=== PATIENT | female | born 1935 | race Caucasian/White ===

== ENCOUNTER → 2017-04-17 | Outpatient (CLI) | payer MEDICARE ==
--- NOTE | 2017-04-17 13:09 | CT ---
EXAMINATION TYPE: CT chest wo con DATE OF EXAM: 04/17/2017 COMPARISON: CT chest September 19, 2016 HISTORY: Pulmonary nodule and pneumonia. CT DLP: 199.80 mGycm. Automated Exposure Control for Dose Reduction was Utilized. TECHNIQUE: CT scan of the thorax is performed without IV contrast. FINDINGS: LUNGS: Advanced emphysematous changes are redemonstrated bilaterally. There are large thick-walled bu lla posterior right lung apex with adjacent scarring redemonstrated. There are scattered additional b laura and blebs is pronounced in the upper lungs. No suspicious air-fluid levels are seen. There is bi basilar peripheral fibrosis or honeycombing redemonstrated. No concerning new parenchymal nodule or m ass is identified. There is right-sided volume loss with mediastinal shift is redemonstrated. No pleu ral effusion or pneumothorax is noted. MEDIASTINUM: Lack of IV contrast is noted to limit evaluation for mediastinal and especially hilar ad enopathy. There are no definitive greater than 1 cm hilar or mediastinal lymph nodes. No cardiomega ly or pericardial effusion is seen. There is dense three-vessel coronary artery calcification redemon strated. There is moderate to severe calcified plaque in the visualized aorta. OTHER: There is multilevel moderate spurring in the spine. Small hiatal hernia is now present. IMPRESSION: Advanced emphysematous change redemonstrated. No acute pulmonary process is seen currentl y. No concerning mass or adenopathy is noted.
== END | disposition home or self-care (01) ==
LOC: RADCTMAIN 12:40
PROVIDERS: ATTEND Internal Medicine Sleep Medicine
DX: J43.9 Emphysema, unspecified (principal)
CPT/HCPCS: 71250

== ENCOUNTER → 2017-09-13 | Outpatient (CLI) | payer MEDICARE ==
--- NOTE | 2017-09-13 10:41 | US ---
EXAMINATION TYPE: US carotid duplex BILAT DATE OF EXAM: 09/13/2017 COMPARISON: US CLINICAL HISTORY: R09.89 signs involving the circulatory and respiratory systems. Bruit heard by matty elias physician per patient history. EXAM MEASUREMENTS: RIGHT: Peak Systolic Velocity (PSV) cm/sec ----- Right CCA: 76.7 ----- Right ICA: 171.8 ----- Right ECA: 63.4 ICA/CCA ratio: 2.2 RIGHT: End Diastole cm/sec ----- Right CCA: 17.2 ----- Right ICA: 47.6 ----- Right ECA: 10.6 LEFT: Peak Systolic Velocity (PSV) cm/sec ---- Left CCA: 75.9 ----- Left ICA: 103.1 ----- Left ECA: 128.7 ICA/CCA ratio: 1.4 LEFT: End Diastole cm/sec ----- Left CCA: 24.1 ----- Left ICA: 30.6 ----- Left ECA: 20.4 VERTEBRALS (direction of flow): Right Vertebral: Antegrade Left Vertebral: Antegrade Rhythm: Normal Irregular wall calcifications noted in bilateral CCA and at bilateral carotid bulb with abnormally el evated PSV in Proximal Right ICA and Proximal Left ECA. IMPRESSION: 1. Atherosclerotic changes with elevated velocities within the proximal right internal carotid artery . Ratio also appears to be elevated and findings are suggestive of a 50-69% stenosis. This could be c orrelated with CTA for exact characterization.
== END | disposition home or self-care (01) ==
LOC: RADUSWWP 08:57
PROVIDERS: ATTEND Family Medicine
DX: I65.21 Occlusion and stenosis of right carotid artery (principal); R93.1 Abnormal findings on diagnostic imaging of heart and coronary circulation
CPT/HCPCS: 93880

== ENCOUNTER 2017-10-26 10:39 | Emergency (ER) | payer MEDICARE ==
[2017-10-26] MEDS ORDERED: RX INFO: IV CONTRAST WAS GIVEN 1 EACH MISC MISCELLANE PRN (11:00)
--- NOTE | 2017-10-26 11:07 | ED ---
General Adult HPI - General Chief complaint: Dental/Oral Stated complaint: Jaw pain Time Seen by Provider: 10/26/17 10:40 Source: patient, RN notes reviewed Mode of arrival: wheelchair Limitations: no limitations - History of Present Illness Initial comments: This is an 82-year-old female who presents emergency Department complaining of pain in the right side of her mouth along her maxilla. Patient states she's been seen before in the emergency department and told she has probably trigeminal neuralgia and she has not followed up with a neurologist. Patient states the pain comes it is sharp and last for about a minute but it is so severe brings tears to her eyes. Patient states she takes Motrin on a daily basis but has not helped at all. Patient states the episodes are more frequent and lasting longer lately. Patient states nothing in particular seems to bring them on the one they do come on the area is very sensitive to touch. Patient denies any recent injury or trauma. Patient denies any swelling or redness. Patient has no teeth on the maxilla. Patient denies any recent fever chills. Patient states the symptoms been ongoing and worsening over the last 2 months. patient does not have any pain currently - Related Data Home Medications Medication Instructions Recorded Confirmed Alendronate Sodium 70 mg PO Q7D 06/27/16 10/26/17 Famotidine [Pepcid] 20 mg PO BID 06/27/16 10/26/17 Meloxicam 15 mg PO DAILY 06/27/16 10/26/17 Methotrexate Sodium [Methotrexate] 20 mg PO Q7D 06/27/16 10/26/17 Metoprolol Tartrate [Lopressor] 25 mg PO HS 06/27/16 10/26/17 Pravastatin Sodium [Pravachol] 40 mg PO DAILY 06/27/16 10/26/17 Previous Rx's Medication Instructions Recorded Hydrocodone/Acetaminophen [Fulton 0.5 each PO Q4HR #10 tab 10/26/17 5-325] Ibuprofen [Motrin] 400 mg PO Q8HR #20 10/26/17 Ondansetron Odt [Zofran Odt] 4 mg PO Q8HR PRN #10 tab 10/26/17 Allergies Allergy/AdvReac Type Severity Reaction Status Date / Time No Known Allergies Allergy Verified 10/26/17 12:21 Review of Systems ROS Statement: Those systems with pertinent positive or pertinent negative responses have been documented in the HPI. ROS Other: All systems not noted in ROS Statement are negative. Past Medical History Past Medical History: COPD, GERD/Reflux, Hyperlipidemia, Osteoarthritis (OA), Pneumonia, Renal Disease, Rheumatoid Arthritis (RA), Skin Disorder Additional Past Medical History / Comment(s): Chronic hypoxic respiratory failure, interstitial lung disease, oxygen at night and prn during the day at 3L , chronic kidney disease stage II, recent UTI, hemorrhoids, hx psoriasis, osteoporosis, sinus problems, pt states she does not believe she has HTN but it is in past medical records. History of Any Multi-Drug Resistant Organisms: MRSA Date of last positivie culture/infection: 2010 MDRO Source:: lungs Past Surgical History: Tubal Ligation Additional Past Surgical History / Comment(s): EGD/colonoscopy, uterine fibroidectomy during which urethra was removed and reconstructed, bilateral cataract removal. Past Anesthesia/Blood Transfusion Reactions: No Reported Reaction Past Psychological History: Anxiety Smoking Status: Former smoker Past Alcohol Use History: None Reported Past Drug Use History: None Reported - Past Family History Mother Family Medical History: Unable to Obtain Additional Family Medical History / Comment(s): Pt does not recall mother's medical hx. She states she lived into her late 80's maybe even to age 90yrs. Father Family Medical History: Cancer Additional Family Medical History / Comment(s): . General Exam - General Exam Comments Initial Comments: GENERAL: Patient is well-developed and well-nourished. Patient is nontoxic and well- hydrated and is in no acute distress. ENT: Neck is soft and supple. No significant lymphadenopathy is noted. Oropharynx is clear. Moist mucous membranes. Neck has full range of motion without eliciting any pain. No area of tenderness along the maxilla no swelling no masses felt. EYES: The sclera were anicteric and conjunctiva were pink and moist. Extraocular movements were intact and pupils were equal round and reactive to light. Eyelids were unremarkable. PULMONARY: Unlabored respirations. Good breath sounds bilaterally. No audible rales rhonchi or wheezing was noted. CARDIOVASCULAR: There is a regular rate and rhythm without any murmurs gallops or rubs. ABDOMEN: Soft and nontender with normal bowel sounds. No palpable organomegaly was noted. There is no palpable pulsatile mass. SKIN: Skin is clear with no lesions or rashes and otherwise unremarkable. NEUROLOGIC: Patient is alert and oriented x3. Cranial nerves II through XII are grossly intact. Motor and sensory are also intact. Normal speech, volume and content. Symmetrical smile. MUSCULOSKELETAL: Normal extremities with adequate strength and full range of motion. LYMPHATICS: No significant lymphadenopathy is noted PSYCHIATRIC: Normal psychiatric evaluation. Limitations: no limitations Course Vital Signs 10/26/17 10:43 Temperature 97.4 F L Pulse Rate 65 Respiratory 20 Rate Blood Pressure 183/81 O2 Sat by Pulse 99 Oximetry Medical Decision Making - Lab Data Result diagrams: 10/26/17 11:02 10/26/17 11:02 Lab Results 10/26/17 10/26/17 Range/Units 11:02 11:02 WBC 11.5 H (3.8-10.6) k/uL RBC 3.75 L (3.80-5.40) m/uL Hgb 10.5 L (11.4-16.0) gm/dL Hct 34.3 (34.0-46.0) % MCV 91.5 (80.0-100.0) fL MCH 27.9 (25.0-35.0) pg MCHC 30.5 L (31.0-37.0) g/dL RDW 20.9 H (11.5-15.5) % Plt Count 456 H (150-450) k/uL Neutrophils % 68 % Lymphocytes % 15 % Monocytes % 8 % Eosinophils % 5 % Basophils % 1 % Neutrophils # 7.8 H (1.3-7.7) k/uL Lymphocytes # 1.7 (1.0-4.8) k/uL Monocytes # 0.9 (0-1.0) k/uL Eosinophils # 0.6 (0-0.7) k/uL Basophils # 0.1 (0-0.2) k/uL Hypochromasia Moderate Anisocytosis Moderate Macrocytosis Slight ESR 83 H (0-20) mm/hr Sodium 142 (137-145) mmol/L Potassium 4.4 (3.5-5.1) mmol/L Chloride 106 (98-107) mmol/L Carbon Dioxide 25 (22-30) mmol/L Anion Gap 11 mmol/L BUN 20 H (7-17) mg/dL Creatinine 1.30 H (0.52-1.04) mg/dL Est GFR (MDRD) Af Amer 47 (>60 ml/min/1.73 sqM) Est GFR (MDRD) Non-Af 39 (>60 ml/min/1.73 sqM) Glucose 101 H (74-99) mg/dL Calcium 9.5 (8.4-10.2) mg/dL Total Bilirubin 0.3 (0.2-1.3) mg/dL AST 18 (14-36) U/L ALT 28 (9-52) U/L Alkaline Phosphatase 83 (38-126) U/L C-Reactive Protein 88.8 H (<10.0) mg/L Total Protein 6.6 (6.3-8.2) g/dL Albumin 3.6 (3.5-5.0) g/dL Disposition Clinical Impression: Trigeminal neuralgia Disposition: HOME SELF-CARE Condition: Good Instructions: Trigeminal Neuralgia (ED) Prescriptions: Hydrocodone/Acetaminophen [Fulton 5-325] 0.5 each PO Q4HR #10 tab Ibuprofen [Motrin] 400 mg PO Q8HR #20 Ondansetron Odt [Zofran Odt] 4 mg PO Q8HR PRN #10 tab PRN Reason: Nausea Referrals: Agustin Sheffield DO [Primary Care Provider] - 1-2 days Emilie Torres MD [STAFF PHYSICIAN] - 1-2 days Time of Disposition: 13:43
[2017-10-26 11:22] LABS: Anisocytosis Moderate; Basophils # (A) 0.1 k/uL (0-0.2); Basophils % (A) 1 %; Eosinophils # (A) 0.6 k/uL (0-0.7); Eosinophils % (A) 5 %; HCT 34.3 % (34.0-46.0); HGB 10.5 gm/dL (11.4-16.0); Hypochromasia Moderate; Lymphocytes # (A) 1.7 k/uL (1.0-4.8); Lymphocytes % (A) 15 %; MCH 27.9 pg (25.0-35.0); MCHC 30.5 g/dL (31.0-37.0); MCV 91.5 fL (80.0-100.0); Macrocytosis Slight; Mean Platelet Volume 7.2; Monocytes # (A) 0.9 k/uL (0-1.0); Monocytes % (A) 8 %; Neutrophils # (A) 7.8 k/uL (1.3-7.7); Neutrophils % (A) 68 %; Platelet Count 456 k/uL (150-450); RBC 3.75 m/uL (3.80-5.40); RDW 20.9 % (11.5-15.5); WBC 11.5 k/uL (3.8-10.6)
[2017-10-26 11:28] LABS: Albumin 3.6 g/dL (3.5-5.0); C Reactive Protein 88.8 mg/L (<10.0); Calcium 9.5 mg/dL (8.4-10.2); Potassium 4.4 mmol/L (3.5-5.1); Total Bilirubin 0.3 mg/dL (0.2-1.3); Total Protein 6.6 g/dL (6.3-8.2)
[2017-10-26] MEDS ORDERED: HYDROmorphone 1 MG/ML 1 ML SYRINGE IVP STA (11:51)
[2017-10-26] MEDS ORDERED: KETOROLAC 30 MG/ML 1 ML VIAL IVP STA (11:51)
[2017-10-26] MEDS ORDERED: ONDANSETRON 4 MG/2 ML VIAL IVP STA ×2 (11:52→13:54)
[2017-10-26] MEDS ORDERED: SODIUM CHLORIDE 0.9% 500 ML IV ONE ×2 (12:01→13:59)
[2017-10-26 12:19] LABS: Erythrocyte Sedimentation Rate 83 mm/hr (0-20)
--- NOTE | 2017-10-26 13:22 | CT ---
EXAMINATION TYPE: CT facial bones w con DATE OF EXAM: 10/26/2017 COMPARISON: NONE HISTORY: Rt Maxilla/Cheek pain CT DLP: 570.8 mGycm Automated exposure control for dose reduction was used. CONTRAST: CT scan of the facial bones is performed with IV Contrast, patient injected with 50 mL of Visipaque 3 20. TECHNIQUE: CT scan of the sinuses is performed without contrast, axial images are obtained, coronal r eformatted images are also reviewed. FINDINGS: Orbital margins are intact. There is no evidence of orbital mass. The maxilla is intact. Th ere is fairly normal aeration of the paranasal sinuses. Zygomatic arches appear normal. Mandible appe ars intact. There is normal aeration of the visualized mastoid sinuses. There is cerebral cortical at rophy. There is minimal mucosal thickening in the ethmoid air cells. IMPRESSION: Minimal ethmoid sinusitis. Cerebral atrophy. I do not see a cause for right-sided pain.
[2017-10-26 14:04] VITALS: BP 180/79; PULSE 85; RESP 16; TEMP 97
== END 2017-10-26 14:31 | disposition home or self-care (01) ==
LOC: EC 10:39
DX: G50.0 Trigeminal neuralgia (principal); K21.9 Gastro-esophageal reflux disease without esophagitis; E78.5 Hyperlipidemia, unspecified; M19.90 Unspecified osteoarthritis, unspecified site; M06.9 Rheumatoid arthritis, unspecified; F41.9 Anxiety disorder, unspecified; Z86.14 Personal history of Methicillin resistant Staphylococcus aureus infection; Z87.891 Personal history of nicotine dependence; Z79.899 Other long term (current) drug therapy
CPT/HCPCS: 36415; 80053; 85652; 85025; 86140; 70487; 99284; 96374; 96375 ×2; 96376; 96361; Q9967; J2405; J1885; J1170

== ENCOUNTER → 2017-11-15 | Outpatient (CLI) | payer MEDICARE ==
--- NOTE | 2017-11-15 14:10 | XR ---
EXAMINATION TYPE: XR chest 2V DATE OF EXAM: 11/15/2017 COMPARISON: 08/22/2017 and 04/17/2017 HISTORY: 82-year-old female shortness of breath, bronchopneumonia TECHNIQUE: Frontal and lateral views FINDINGS: Heart normal size. Aorta within normal limits. Hyperinflation. Interstitial infiltrates slightly incr eased at the right base. Bohler cavity at the right apex redemonstrated. The previous air-fluid level has cleared. However, there seems to be some adjacent thickening. IMPRESSION: 1. Advanced COPD and fibrosis. 2. Interstitial infiltrates at the right base slightly increased and could represent early pneumonia. 3. Some peribullous/pericavitary opacity at the right apex could represent additional consolidation h ere. Consider a follow-up contrast-enhanced CT to determine stability from 04/17/2017.
== END | disposition home or self-care (01) ==
LOC: RADXRYALE 13:36
PROVIDERS: ATTEND Physician Assistant
DX: J44.9 Chronic obstructive pulmonary disease, unspecified (principal); J84.10 Pulmonary fibrosis, unspecified
CPT/HCPCS: 71046

== ENCOUNTER → 2017-11-26 | Outpatient (CLI) | payer MEDICARE ==
--- NOTE | 2017-11-26 14:05 | CT ---
EXAMINATION TYPE: CT chest wo con DATE OF EXAM: 11/26/2017 COMPARISON: 04/17/2017 HISTORY: Pulmonary fibrosis and COPD. CT DLP: 205.4 mGycm. Automated Exposure Control for Dose Reduction was Utilized. TECHNIQUE: CT scan of the thorax is performed without IV contrast. FINDINGS: LUNGS: There is progressive thickening of the wall of the cavitary lesion within the right upper lobe measuring approximately 6.0 x 5.9 x 7.5 cm. This splays varicose bronchiectasis of the right upper l obe on coronal series 6 image 52. No continuity with bronchi are seen. Internal septa are noted as we ll as a more rounded nodular thickening of the septa on coronal series 6 image 57 measuring 1.4 cm. C onsiderations for atypical infection such as aspergillosis should be given. There is background severe centrilobular emphysematous changes with left lung hyperexpansion and slig ht rightward mediastinal shift as seen on the prior exam. Right basilar honeycombing is seen on coron al series 6 image 48 indicative of peripheral basilar fibrosis, right greater than left. Linear area of right basilar scarring is similar to the prior. MEDIASTINUM: Lack of IV contrast is noted to limit evaluation for mediastinal and especially hilar ad enopathy. There are no definitive greater than 1 cm hilar or mediastinal lymph nodes. Ascending thora cic aorta is within normal limits of size measuring 3.4 cm. Extensive three-vessel coronary calcifica tions are present. Scant amount of pericardial fluid is seen posterior left laterally. No cardiomegal y. There is enlargement of the right and left main pulmonary arteries measuring 2.4 cm bilaterally. OTHER: Small hiatal hernia is present. Extensive atherosclerosis is seen of the abdominal aorta and t horacic aorta as well as its branches. Multilevel moderate degenerative changes of the thoracic spine are noted. IMPRESSION: 1. Progressive wall thickening of a now right upper lobe cavitary lesion with the previous appearance of bullous emphysematous changes. Thick septa and internal area of nodularity are seen. Atypical inf ection such as aspergillosis should be considered. Infection and neoplasm are considered less likely. There are adjacent dilated segmental bronchi and therefore endoscopy could be considered with percut aneous sampling. Note this patient is high risk for biopsy is there is extensive background centrilob ular emphysematous change. 2. Extensive atherosclerosis of the coronary arteries, thoracic aorta and visualized upper abdominal aorta. 3. Small hiatal hernia. 4. Enlargement of the right and left main pulmonary arteries may suggest underlying pulmonary arteria l hypertension.
== END | disposition home or self-care (01) ==
LOC: RADCTMAIN 13:27
PROVIDERS: ATTEND Family Medicine
DX: I28.8 Other diseases of pulmonary vessels (principal); R91.8 Other nonspecific abnormal finding of lung field; I25.10 Atherosclerotic heart disease of native coronary artery without angina pectoris; J44.9 Chronic obstructive pulmonary disease, unspecified
CPT/HCPCS: 71250

== ENCOUNTER 2018-01-11 12:54 | Inpatient (IN) | payer MEDICARE ==
[2018-01-11] MEDS ORDERED: methylPREDNISolone SOD SUCCI 125 MG/2 ML VIAL IV STA (13:22)
[2018-01-11] MEDS ORDERED: IPRATROPIUM-ALBUTEROL 3 ML NEB INHALATION STA (13:22)
[2018-01-11] MEDS ORDERED: SODIUM CHLORIDE 0.9% 1,000 ML IV STA (13:22)
--- NOTE | 2018-01-11 13:27 | ED ---
General Adult HPI - General Chief complaint: Shortness of Breath Stated complaint: Weakness, Cough Time Seen by Provider: 01/11/18 13:09 Source: patient, family, RN notes reviewed Mode of arrival: wheelchair Limitations: no limitations - History of Present Illness Initial comments: Patient is a pleasant 82-year-old female presenting to the emergency department with difficulty in breathing. Patient has known COPD and pulmonary fibrosis. Dyspnea has been worse over the past several days. No significant cough. No fevers. Patient is very dyspneic with any exertion. No chest pain. - Related Data Home Medications Medication Instructions Recorded Confirmed Alendronate Sodium 70 mg PO Q7D 06/27/16 01/11/18 Famotidine [Pepcid] 20 mg PO BID 06/27/16 01/11/18 Meloxicam 15 mg PO DAILY 06/27/16 01/11/18 Methotrexate Sodium [Methotrexate] 20 mg PO FR 06/27/16 01/11/18 Metoprolol Tartrate [Lopressor] 25 mg PO BID 06/27/16 01/11/18 Pravastatin Sodium [Pravachol] 40 mg PO HS 06/27/16 01/11/18 Albuterol Nebulized [Ventolin 2.5 mg INHALATION RT-Q4H PRN 01/11/18 01/11/18 Nebulized] Aspirin [Adult Low Dose Aspirin EC] 81 mg PO HS 01/11/18 01/11/18 Budesonide [Pulmicort] 0.5 mg INHALATION RT-Q8H 01/11/18 01/11/18 Cholecalciferol [Vitamin D3] 1,000 unit PO DAILY 01/11/18 01/11/18 Fluticasone Nasal Grant [Flonase 2 spr EA NOSTRIL DAILY 01/11/18 01/11/18 Nasal Grant] Folic Acid 1 mg PO DAILY 01/11/18 01/11/18 Ipratropium Nebulized [Atrovent 0.5 mg INHALATION RT-Q6H 01/11/18 01/11/18 Nebulized] Multivitamins, Thera [Multivitamin 1 tab PO DAILY 01/11/18 01/11/18 (formulary)] Psyllium Husk [Metamucil] 0.4 gm PO DAILY 01/11/18 01/11/18 carBAMazepine [TEGretol XR] 100 mg PO Q12H 01/11/18 01/11/18 predniSONE See Taper PO DIRECTED 01/11/18 01/11/18 Allergies Allergy/AdvReac Type Severity Reaction Status Date / Time No Known Allergies Allergy Verified 01/11/18 13:43 Review of Systems ROS Statement: Those systems with pertinent positive or pertinent negative responses have been documented in the HPI. ROS Other: All systems not noted in ROS Statement are negative. Constitutional: Denies: fever Eyes: Denies: eye pain ENT: Denies: ear pain Respiratory: Reports: dyspnea Cardiovascular: Denies: chest pain Endocrine: Denies: fatigue Gastrointestinal: Denies: abdominal pain Genitourinary: Denies: dysuria Musculoskeletal: Denies: back pain Skin: Denies: rash Neurological: Denies: weakness Past Medical History Past Medical History: COPD, GERD/Reflux, Hyperlipidemia, Osteoarthritis (OA), Pneumonia, Renal Disease, Rheumatoid Arthritis (RA), Skin Disorder Additional Past Medical History / Comment(s): Chronic hypoxic respiratory failure, interstitial lung disease, oxygen at night and prn during the day at 3L , chronic kidney disease stage II, recent UTI, hemorrhoids, hx psoriasis, osteoporosis, sinus problems, pulmonary fibrosis History of Any Multi-Drug Resistant Organisms: MRSA Date of last positivie culture/infection: 2010 MDRO Source:: lungs Past Surgical History: Tubal Ligation Additional Past Surgical History / Comment(s): EGD/colonoscopy, uterine fibroidectomy during which urethra was removed and reconstructed, bilateral cataract removal. Past Anesthesia/Blood Transfusion Reactions: No Reported Reaction Past Psychological History: Anxiety Smoking Status: Former smoker Past Alcohol Use History: None Reported Past Drug Use History: None Reported - Past Family History Mother Family Medical History: Unable to Obtain Additional Family Medical History / Comment(s): Pt does not recall mother's medical hx. She states she lived into her late 80's maybe even to age 90yrs. Father Family Medical History: Cancer Additional Family Medical History / Comment(s): . General Exam Limitations: no limitations General appearance: alert, in distress Head exam: Present: atraumatic Eye exam: Present: normal appearance, PERRL ENT exam: Present: normal oropharynx Neck exam: Present: normal inspection Respiratory exam: Present: respiratory distress, decreased breath sounds Cardiovascular Exam: Present: regular rate, normal rhythm GI/Abdominal exam: Present: soft. Absent: tenderness Extremities exam: Present: normal inspection Neurological exam: Present: alert Psychiatric exam: Present: anxious Skin exam: Present: normal color Course Vital Signs 01/11/18 01/11/18 01/11/18 13:01 13:52 13:59 Temperature 99.2 F Pulse Rate 93 96 95 Respiratory 28 H 22 18 Rate Blood Pressure 133/62 O2 Sat by Pulse 98 Oximetry - Reevaluation(s) Reevaluation #1: 01/11/18 13:26 Discussion had with patient and family. Patient wants to be no code, no intubation. 01/11/18 14:21 Patient has slight elevation of temperature. No change in chest x-ray however there is some concern for COPD with infection therefore there is some potential for sepsis. Blood culture and lactic acid and antibiotics will be ordered. Medical Decision Making - Medical Decision Making Patient reevaluated and resting somewhat improved with BiPAP. Patient and family updated on results and plan. Dr. Maher has been paged for admission for Dr. Alcala. 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 - Lab Data Result diagrams: 01/11/18 13:15 01/11/18 13:15 Lab Results 01/11/18 01/11/18 Range/Units 13:15 13:15 WBC 14.0 H (3.8-10.6) k/uL RBC 3.77 L (3.80-5.40) m/uL Hgb 10.7 L (11.4-16.0) gm/dL Hct 33.4 L (34.0-46.0) % MCV 88.7 (80.0-100.0) fL MCH 28.3 (25.0-35.0) pg MCHC 31.9 (31.0-37.0) g/dL RDW 20.6 H (11.5-15.5) % Plt Count 611 H (150-450) k/uL Neutrophils % 73 % Lymphocytes % 16 % Monocytes % 6 % Eosinophils % 2 % Basophils % 1 % Neutrophils # 10.3 H (1.3-7.7) k/uL Lymphocytes # 2.3 (1.0-4.8) k/uL Monocytes # 0.8 (0-1.0) k/uL Eosinophils # 0.3 (0-0.7) k/uL Basophils # 0.1 (0-0.2) k/uL Hypochromasia Slight Anisocytosis Moderate Sodium 137 (137-145) mmol/L Potassium 5.4 H (3.5-5.1) mmol/L Chloride 99 (98-107) mmol/L Carbon Dioxide 27 (22-30) mmol/L Anion Gap 11 mmol/L BUN 20 H (7-17) mg/dL Creatinine 1.32 H (0.52-1.04) mg/dL Est GFR (CKD-EPI)AfAm 43 (>60 ml/min/1.73 sqM) Est GFR (CKD-EPI)NonAf 37 (>60 ml/min/1.73 sqM) Glucose 115 H (74-99) mg/dL Calcium 9.9 (8.4-10.2) mg/dL Total Bilirubin 0.4 (0.2-1.3) mg/dL AST 18 (14-36) U/L ALT 19 (9-52) U/L Alkaline Phosphatase 90 (38-126) U/L Total Protein 7.5 (6.3-8.2) g/dL Albumin 3.8 (3.5-5.0) g/dL - Radiology Data Radiology results: image reviewed (Chest x-ray shows chronic changes without acute abnormality.) Critical Care Time Critical Care Time: Yes Total Critical Care Time: 33 Disposition Clinical Impression: Acute respiratory failure, COPD (chronic obstructive pulmonary disease) Disposition: ADMITTED IP TO THIS HOSP Referrals: Agustin Sheffield DO [Primary Care Provider] - 1-2 days Decision Time: 14:22
[2018-01-11 13:40] LABS: Anisocytosis Moderate; Basophils # (A) 0.1 k/uL (0-0.2); Basophils % (A) 1 %; Eosinophils # (A) 0.3 k/uL (0-0.7); Eosinophils % (A) 2 %; HCT 33.4 % (34.0-46.0); HGB 10.7 gm/dL (11.4-16.0); Hypochromasia Slight; Lymphocytes # (A) 2.3 k/uL (1.0-4.8); Lymphocytes % (A) 16 %; MCH 28.3 pg (25.0-35.0); MCHC 31.9 g/dL (31.0-37.0); MCV 88.7 fL (80.0-100.0); Mean Platelet Volume 6.4; Monocytes # (A) 0.8 k/uL (0-1.0); Monocytes % (A) 6 %; Neutrophils # (A) 10.3 k/uL (1.3-7.7); Neutrophils % (A) 73 %; Platelet Count 611 k/uL (150-450); RBC 3.77 m/uL (3.80-5.40); RDW 20.6 % (11.5-15.5)
--- NOTE | 2018-01-11 13:46 | XR ---
EXAMINATION TYPE: XR chest 1V portable DATE OF EXAM: 01/11/2018 HISTORY: dyspnea. REFERENCE: Previous study dated 11/15/2017. FINDINGS: There is chronic volume loss in the right side of the chest. There is scarring in the right upper lobe. There are underlying emphysematous changes. Heart size is upper limits of normal. There is chronic blunting of the right CP angle which may represent a chronic effusion or pleural reaction. I do not see evidence of superimposed pneumonia or edema. IMPRESSION: NO INTERVAL CHANGE IN THE APPEARANCE OF THE CHEST.
[2018-01-11 14:01] LABS: Albumin 3.8 g/dL (3.5-5.0); Calcium 9.9 mg/dL (8.4-10.2); Total Bilirubin 0.4 mg/dL (0.2-1.3); Total Protein 7.5 g/dL (6.3-8.2)
[2018-01-11 14:06] LABS: Potassium 5.4 mmol/L (3.5-5.1)
[2018-01-11] MEDS ORDERED: AZITHROMYCIN 500 MG in SODIUM CHLORIDE 0.9% 250 ML IVPB STA (14:22)
[2018-01-11] MEDS ORDERED: cefTRIAXone IN SWFI 1,000 MG/10 ML SYRINGE IVP STA (14:22)
[2018-01-11] MEDS ORDERED: PNEUMONIA PROTOCOL UTILIZED 1 EACH MISC PO PRN (14:22)
[2018-01-11] MEDS ORDERED: IPRATROPIUM-ALBUTEROL 3 ML NEB INHALATION PRN (14:22)
[2018-01-11] MEDS: SODIUM CHLORIDE 0.9% 1,000 ML IV SCH ×2 (14:35→22:53)
[2018-01-11] MEDS: IPRATROPIUM-ALBUTEROL 3 ML NEB INHALATION SCH ×2 (16:58→19:04)
[2018-01-11] MEDS: methylPREDNISolone SOD SUCCI 125 MG/2 ML VIAL IV SCH ×2 (17:37→22:53)
[2018-01-11] MEDS ORDERED: NON-FORMULARY DRUG (Alendronate Sodium [Alendronate Sodium] 70 MG) PO SCH (22:15)
[2018-01-11] MEDS: carBAMazepine 100 MG TAB.ER.12H PO SCH (23:00)
--- NOTE | 2018-01-11 23:59 | HP ---
HISTORY AND PHYSICAL CHIEF COMPLAINT: Shortness of breath with weakness and cough. HISTORY OF PRESENT ILLNESS: This 82-year-old woman with a past medical history of multiple medical problems, including COPD, GERD, hyperlipidemia, history of DJD, history of pneumonia, history of rheumatoid arthritis, history of chronic hypoxic respiratory disease, interstitial lung disease, history of anxiety being followed by Dr. Deleon in the outpatient setting with complaints of generalized weakness and tiredness. The patient also complaining of shortness of breath and cough also. The patient also has pulmonary fibrosis. Because of increasing difficulty, the patient came to [facility] and was admitted for further evaluation and treatment. The initial WBC was 14, potassium is 5.4, sodium is 132 and the influenza negative. There is no history of any fever, rigors. No history of headache, loss of conscious or seizures. PAST MEDICAL HISTORY: History of COPD, GERD, hyperlipidemia, history of DJD, history of pneumonia, history of rheumatoid arthritis, skin disorders, chronic hypoxic respiratory failure. MEDICATIONS PRIOR TO ADMISSION: Include home medications are: 1. Albuterol 2.5 q.4h p.r.n. 2. Pravachol 40 mg q.h.s. 3. Methotrexate 20 mg Saturday. 4. Ecotrin 81 mg daily. 6. Prednisone taper. 7. Fluticasone 2 sprays daily. 8. Tegretol XR 100 mg p.o. b.i.d. 9. Multivitamin 1 p.o. daily. 10.Lopressor 25 mg p.o. b.i.d. 11.Vitamin D3 1000 daily. 12.Metamucil 0.5 mg p.o. daily. 13.Meloxicam 15 mg p.o. daily. 14.Folic acid 1 mg daily. 15.Atrovent 0.5 every 6 hours. 16.Pepcid 20 mg p.o. daily. 17.Pulmicort 0.5 q.8h. ALLERGIES: None. FAMILY HISTORY: History of cancer in the family. SOCIAL HISTORY: Previous history of smoking. No history of current smoking or alcohol intake. REVIEW OF SYSTEMS: ENT: No diminished hearing, diminished vision. CARDIOVASCULAR: As mentioned earlier. RESPIRATORY: As mentioned earlier. GI: No nausea or vomiting. : No dysuria. NERVOUS: No numbness or weakness. ALLERGY/IMMUNOLOGY: No asthma or hay fever. MUSCULOSKELETAL: As mentioned earlier. HEMATOLOGY/ONCOLOGY: No history of anemia. ENDOCRINE: No history of diabetes, hypothyroidism. CONSTITUTIONAL: As mentioned earlier. DERMATOLOGY: Negative. RHEUMATOLOGY: Negative. PSYCHIATRY: As mentioned earlier. PHYSICAL EXAMINATION: Alert, oriented x3. Pulse 84, blood pressure 147/78, respirations 19, temperature is 96.9, pulse ox 99% on 3L. HEENT: Conjunctivae normal. Oral mucosa moist. NECK: No jugular venous distention. No carotid bruits. No lymph node enlargement. Accessory muscles of respiration acting. CARDIOVASCULAR: S1, S2 muffled. RESPIRATORY: Breath sounds diminished in the bases. Bilateral scattered rhonchi and crackles. Expiratory wheezing and prolongation. CHEST: Emphysematous. ABDOMEN: Soft, nontender. No mass palpable. LEGS: No edema. No swelling. NERVOUS SYSTEM: Higher functions as mentioned earlier. Moves all 4 limbs. No focal motor or sensory deficits. LYMPHATIC: No lymphadenopathy in neck or axillae. SKIN: No ulcer, rash or bleeding. LABS: WBC 14, hemoglobin is 10.7. Other labs are noted. Creatinine is 1.32. The chest x- ray reviewed which shows emphysematous appearance and chronic pleural effusion and pleural reaction. ASSESSMENT: 1. Chronic obstructive pulmonary disease, interstitial fibrosis exacerbation with acute purulent tracheobronchitis. 2. History of gastroesophageal reflux disease. 3. Hyperlipidemia. 4. History of degenerative joint disease. 5. Pneumonia. 6. Rheumatoid arthritis. 7. Skin disorder. 8. Chronic hypoxic respiratory failure. 9. History of pulmonary fibrosis. 10.History of chronic kidney disease stage 2. 11.History of recent urinary tract infection. 12.Osteoporosis. 13.History methicillin-resistant Staphylococcus aureus. 14.History of anxiety. 15.Remote history of nicotine dependence. 16.NO CODE, NO CPR, NO VENT. RECOMMENDATIONS AND DISCUSSION: In this 82-year-old woman who presented with multiple complex medical issues, will monitor the patient closely, continue the current medical management and symptomatic treatment. Otherwise at this time, I would recommend intensive bronchodilators , IV steroids. I would also recommend empiric antibiotics and I would also recommend resume the home medications. Otherwise, IV steroids also will be given and the prognosis guarded because of the multiple complex medical issues. Further recommendations to follow. A copy of this dictation will be forwarded to Dr. Deleon, who is the primary physician. Repeat labs have also been ordered. Once again, the overall prognosis is guarded because of multiple complex medical issues and further recommendations to follow. See orders for further details. DVT prophylaxis, proton pump inhibitors. MMODL / IJN: [id number] / [place]
[2018-01-12] MEDS ORDERED: BUDESONIDE 0.5 MG/2 ML NEBU INHALATION SCH
[2018-01-12 05:59] LABS: Glucose,Whole Blood 129 mg/dL (75-99)
[2018-01-12] MEDS: INSULIN ASPART 100 UNIT/ML 1 ML 10 ML VIAL SQ SCH ×4 (06:31→19:52)
[2018-01-12] MEDS: PANTOPRAZOLE 40 MG TABLET PO SCH (06:31)
[2018-01-12] MEDS: methylPREDNISolone SOD SUCCI 125 MG/2 ML VIAL IV SCH ×3 (06:33→17:12)
--- NOTE | 2018-01-12 06:52 | XR ---
EXAMINATION TYPE: XR chest 2V DATE OF EXAM: 01/12/2018 HISTORY: pneumonia. REFERENCE: Previous study dated 01/11/2018. FINDINGS: The lungs are overinflated. There is chronic volume loss in the right lung. There is scarri ng in the right upper lobe. Left lung is clear. The heart is not enlarged. There is blunting of the r ight CP angle. I could not exclude a small right effusion. IMPRESSION: 1. COPD. 2. CHRONIC CHANGES RIGHT UPPER LOBE. 3. I CANNOT EXCLUDE A SMALL RIGHT EFFUSION.
[2018-01-12 06:59] LABS: Anisocytosis Moderate; Basophils % (A) 0 %; Eosinophils % (A) 0 %; HCT 28.3 % (34.0-46.0); Hypochromasia Slight; Lymphocytes # (A) 1.2 k/uL (1.0-4.8); Lymphocytes % (A) 10 %; MCH 27.5 pg (25.0-35.0); MCHC 31.3 g/dL (31.0-37.0); Mean Platelet Volume 6.8; Monocytes # (A) 0.4 k/uL (0-1.0); Monocytes % (A) 3 %; Neutrophils # (A) 10.9 k/uL (1.3-7.7); Neutrophils % (A) 87 %; Platelet Count 581 k/uL (150-450); RBC 3.21 m/uL (3.80-5.40); RDW 20.1 % (11.5-15.5); WBC 12.6 k/uL (3.8-10.6)
[2018-01-12 07:05] LABS: HGB 8.8 gm/dL (11.4-16.0)
[2018-01-12 07:09] LABS: Calcium 9.4 mg/dL (8.4-10.2); Potassium 5.7 mmol/L (3.5-5.1)
[2018-01-12] MEDS: BUDESONIDE 0.5 MG/2 ML NEBU INHALATION SCH ×2 (07:52→20:45)
[2018-01-12] MEDS: IPRATROPIUM-ALBUTEROL 3 ML NEB INHALATION SCH ×4 (07:52→20:46)
[2018-01-12] MEDS: AZITHROMYCIN 500 MG TAB PO SCH (08:58)
[2018-01-12] MEDS: MELOXICAM 7.5 MG TAB PO SCH (08:59)
[2018-01-12] MEDS: HEPARIN SODIUM,PORCINE 5,000 UNIT/ML 1 ML VIAL SQ SCH ×2 (08:59→19:50)
[2018-01-12] MEDS: FAMOTIDINE 20 MG TAB PO SCH (08:59)
[2018-01-12] MEDS: PSYLLIUM HUSK 100% 6 GM PACKET PO SCH (09:00)
[2018-01-12] MEDS: METOPROLOL TARTRATE 25 MG TAB PO SCH ×2 (09:00→19:51)
[2018-01-12] MEDS: cefTRIAXone IN SWFI 1,000 MG/10 ML SYRINGE IVP SCH (09:03)
[2018-01-12] MEDS: FLUTICASONE 50MCG/SPRAY NASAL 16GM EA NOSTRIL SCH (10:24)
[2018-01-12] MEDS: carBAMazepine 100 MG TAB.ER.12H PO SCH ×2 (11:03→19:51)
[2018-01-12 11:19] LABS: Glucose,Whole Blood 102 mg/dL (75-99)
[2018-01-12] MEDS: CHOLECALCIFEROL 1,000 UNIT TAB PO SCH (11:44)
[2018-01-12] MEDS: MULTIVITAMINS, THERA 1 EACH TAB PO SCH (11:44)
[2018-01-12] MEDS: FOLIC ACID 1 MG TAB PO SCH (11:44)
[2018-01-12 16:48] LABS: Glucose,Whole Blood 127 mg/dL (75-99)
--- NOTE | 2018-01-12 17:48 | PN ---
PROGRESS NOTE DATE OF SERVICE: 01/12/2018 This 82-year-old woman was admitted with shortness of breath also had COPD acute exacerbation with acute bronchitis. Patient closely monitored. Patient complains of tiredness and weakness and chest pain and palpitations. PAST MEDICAL HISTORY: Reviewed. REVIEW OF SYSTEMS: CARDIOVASCULAR: As mentioned. RESPIRATORY: As mentioned. GI: No nausea. : No dysuria. NERVOUS SYSTEM: As mentioned earlier. CURRENT MEDICATIONS: 1. DuoNeb q.i.d. and p.r.n. 2. Xanax 0.5 t.i.d. p.r.n. 3. Aspirin 81 mg p.o. daily. 4. Zithromax 500 mg p.o. daily. 5. Pulmicort 0.5 b.i.d. 6. Tegretol-XR 100 mg p.o. b.i.d. 7. Rocephin 1 g daily. 8. Vitamin D3 3000 daily. 9. Pepcid 20 mg p.o. daily. 10.Flonase nasal spray. 11.Folic acid. 12.Heparin. 13.NovoLog. 14.Mobic. 15.Methotrexate 20 mg p.o. Saturday. 16.Solu-Medrol 60 IV q.6h. 17.Multivitamins. 18.Protonix. 19.Pravachol. PHYSICAL EXAM: Patient is alert, oriented x3. Pulse 70, blood pressure 120/60, respirations 18, temperature 97 degrees, pulse ox 100% on 3 L. HEENT: Conjunctivae normal. NECK: No jugular venous distention. CARDIOVASCULAR: S1, S2. RESPIRATORY: Breath sounds diminished in the bases. A few scattered rhonchi and crackles. Expiratory wheezing also. ABDOMEN: Soft, nontender. No mass palpable. LEGS: No edema, no swelling. NERVOUS SYSTEM: Higher function as mentioned. Moves all four limbs. No focal deficits. LYMPHATICS: No lymphadenopathy in the neck, axillae, groin. SKIN: No ulcer, rashes or bleeding. LAB STUDIES: WBC 12.2, hemoglobin is 8.8, potassium is 5.7. ASSESSMENT: 1. Chronic obstructive pulmonary disease exacerbation with acute purulent tracheobronchitis. 2. History of gastroesophageal reflux disease. 3. Hyperlipidemia. 4. Hypokalemia. 5. History of degenerative joint disease. 6. History of pneumonia. 7. History rheumatoid arthritis. 8. History of skin disorder. 9. History of chronic hypoxic respiratory failure. 10.History of pulmonary fibrosis. 11.History of chronic kidney stage II. 12.History of recent urinary tract infection. 13.Osteoporosis. 14.History of Methicillin-resistant Staphylococcus aureus. 15.History of anxiety. 16.Remote history of nicotine dependence. 17.NO CODE, NO CPR, NO VENT. RECOMMENDATIONS AND DISCUSSION: I recommend to continue the current medications, continue with symptomatic treatment. Influenza negative. Recommend to continue the current medications. Continue with symptomatic treatment. Continue with IV steroids. Dr. Velázquez has been consulted. Continue rest of the medications. DVT prophylaxis. Guarded prognosis. Further recommendations to follow. MMODL / IJN: [id number] /
[2018-01-12 19:34] LABS: Hemoglobin A1C 6.1 % (4.0-6.0)
[2018-01-12] MEDS: SODIUM CHLORIDE 0.9% 1,000 ML IV SCH ×2 (19:35→19:36)
[2018-01-12] MEDS: ASPIRIN 81 MG PO SCH (19:51)
[2018-01-12] MEDS: PRAVASTATIN SODIUM 40 MG TAB PO SCH (19:51)
[2018-01-12 21:15] LABS: Glucose,Whole Blood 142 mg/dL (75-99)
[2018-01-13] MEDS: SODIUM CHLORIDE 0.9% 1,000 ML IV SCH ×2 (04:01→20:13)
[2018-01-13] MEDS: methylPREDNISolone SOD SUCCI 125 MG/2 ML VIAL IV SCH ×3 (04:01→11:56)
[2018-01-13] MEDS: ALPRAZolam 0.25 MG TAB PO PRN (04:17)
[2018-01-13 05:49] LABS: Glucose,Whole Blood 96 mg/dL (75-99)
[2018-01-13] MEDS: INSULIN ASPART 100 UNIT/ML 1 ML 10 ML VIAL SQ SCH ×4 (06:07→21:46)
[2018-01-13 06:39] LABS: Anisocytosis Moderate; Basophils % (A) 0 %; Eosinophils % (A) 0 %; HGB 8.2 gm/dL (11.4-16.0); Hypochromasia Slight; Lymphocytes # (A) 1.5 k/uL (1.0-4.8); Lymphocytes % (A) 8 %; MCH 27.6 pg (25.0-35.0); MCHC 31.7 g/dL (31.0-37.0); MCV 87.2 fL (80.0-100.0); Mean Platelet Volume 6.5; Monocytes # (A) 0.4 k/uL (0-1.0); Monocytes % (A) 2 %; Neutrophils % (A) 89 %; Platelet Count 622 k/uL (150-450); RBC 2.98 m/uL (3.80-5.40); RDW 20.3 % (11.5-15.5); WBC 19.1 k/uL (3.8-10.6)
[2018-01-13 06:51] LABS: Calcium 9.7 mg/dL (8.4-10.2); Potassium 5.4 mmol/L (3.5-5.1)
[2018-01-13 07:49] LABS: Appearance,Urine Clear (Clear); Bilirubin,Urine Negative (Negative); Blood,Urine Trace (Negative); Color,Urine Light Yellow; Glucose,Urine (UA) Negative (Negative); Ketones,Urine Negative (Negative); Leukocyte Esterase,Urine Trace (Negative); Nitrite,Urine Negative (Negative); PH, Urine 6.5 (5.0-8.0); Protein,Urine Negative (Negative); RBC,Urine 2 /hpf (0-5); Specific Gravity,Urine 1.009 (1.001-1.035); Squamous Epithelial Cell,Urine <1 /hpf (0-4); Urobilinogen,Urine <2.0 mg/dL (<2.0); WBC,Urine 7 /hpf (0-5)
[2018-01-13] MEDS: cefTRIAXone IN SWFI 1,000 MG/10 ML SYRINGE IVP SCH (08:20)
[2018-01-13] MEDS: AZITHROMYCIN 500 MG TAB PO SCH (08:21)
[2018-01-13] MEDS: FAMOTIDINE 20 MG TAB PO SCH (08:21)
[2018-01-13] MEDS: PANTOPRAZOLE 40 MG TABLET PO SCH (08:21)
[2018-01-13] MEDS: METOPROLOL TARTRATE 25 MG TAB PO SCH ×2 (08:22→20:12)
[2018-01-13] MEDS: HEPARIN SODIUM,PORCINE 5,000 UNIT/ML 1 ML VIAL SQ SCH ×2 (08:22→20:11)
[2018-01-13] MEDS: MELOXICAM 7.5 MG TAB PO SCH (08:22)
[2018-01-13] MEDS: FLUTICASONE 50MCG/SPRAY NASAL 16GM EA NOSTRIL SCH (08:22)
[2018-01-13] MEDS: PSYLLIUM HUSK 100% 6 GM PACKET PO SCH (08:23)
[2018-01-13] MEDS: carBAMazepine 100 MG TAB.ER.12H PO SCH ×2 (08:23→20:13)
[2018-01-13] MEDS: BUDESONIDE 0.5 MG/2 ML NEBU INHALATION SCH ×2 (09:35→20:05)
[2018-01-13] MEDS: IPRATROPIUM-ALBUTEROL 3 ML NEB INHALATION SCH ×4 (09:35→20:05)
[2018-01-13] MEDS: FOLIC ACID 1 MG TAB PO SCH (11:56)
[2018-01-13] MEDS: MULTIVITAMINS, THERA 1 EACH TAB PO SCH (11:56)
[2018-01-13] MEDS: CHOLECALCIFEROL 1,000 UNIT TAB PO SCH (11:56)
[2018-01-13 12:05] LABS: Glucose,Whole Blood 127 mg/dL (75-99)
[2018-01-13] MEDS ORDERED: methylPREDNISolone SOD SUCCI 40 MG/ML 1 ML VIAL IV SCH (16:00)
--- NOTE | 2018-01-13 16:49 | PN ---
PROGRESS NOTE DATE OF SURGERY: 01/13/2018 This 82-year-old woman who was admitted with COPD, acute exacerbation, with acute purulent tracheobronchitis also has GERD. The patient is being closely monitored at this time. Pulmonary is following the patient closely also. No chest pain. No palpitations. No fever. On exam, alert and oriented x3. Pulse 87, blood pressure 130/60, respiration 20, temperature 98.3, pulse ox 96% on 3 L. HEENT: Conjunctivae normal. NECK: No jugular venous distention. CARDIOVASCULAR SYSTEM: S1, S2 muffled. RESPIRATORY SYSTEM: Breath sounds diminished at the bases. Breathing efforts are slightly increased. Bilateral scattered rhonchi and crackles. ABDOMEN: Soft, nontender. LEGS: No edema. No swelling. NERVOUS SYSTEM: No focal deficit. LABS: WBC 19.1, hemoglobin 8.2, creatinine 1.27. UA noted. ASSESSMENT: 1. Chronic obstructive pulmonary disease, acute exacerbation, with acute purulent tracheobronchitis. 2. History of gastroesophageal reflux disease. 3. Hyperlipidemia. 4. Hypokalemia. 5. History of degenerative joint disease. 6. History of pneumonia. 7. History of rheumatoid arthritis. 8. History of skin disorder. 9. History of chronic hypoxic respiratory failure. 10.History of pulmonary fibrosis. 11.History of chronic kidney disease, stage II. 12.History of recent urinary tract infection. 13.Osteoporosis. RECOMMENDATIONS AND DISCUSSION: I recommend to continue current medication, continue with the monitoring, symptomatic treatment. Otherwise at this time we will monitor the patient closely, continue the bronchodilators, continue steroids, continue with the antibiotics. Pulmonary consultation. Guarded prognosis. Further recommendations to follow. We will cut down the dose of Solu-Medrol to 40 q.8. MMODL / IJN: [id number] /
[2018-01-13 17:23] LABS: Glucose,Whole Blood 123 mg/dL (75-99)
--- NOTE | 2018-01-13 19:21 | P.CNPUL ---
History of Present Illness Consult date: 01/12/18 (Late entry note) Reason for consult: dyspnea, cough, pneumonia, abnormal CXR/CT Chief complaint: Shortness of breath generalized weakness and cough History of present illness: Patient is a pleasant 82-year-old female who was seen and evaluated examined on fourth floor this patient is well-known to me he has a history of right upper lobe consolidation for which multiple bronchoscopy has been done in the past they were nondiagnostic biopsies were not performed due to risk of pneumothorax and patient also has declined recently patient has been found to have significant pulmonary hypertension likely related to end-stage lung disease and severe COPD emphysema is being sent for a further evaluation today and history of [facility] as well as evaluation of right upper lobe density patient was seen last year then she lost to follow-up and was seen recently after 6 months in the office the right upper lobe mass appears to have increased in size detailed discussion for aggressive intervention like biopsies were performed but however patient declined due to risk of pneumothorax, she is now readmitted with progressive worsening of shortness breath and respiratory distress she responded well with BiPAP in the ER currently on supplemental oxygen fevers and looked slightly better Review of Systems All systems: negative Past Medical History Past Medical History: COPD, GERD/Reflux, Hyperlipidemia, Osteoarthritis (OA), Pneumonia, Renal Disease, Rheumatoid Arthritis (RA), Skin Disorder Additional Past Medical History / Comment(s): Chronic hypoxic respiratory failure, interstitial lung disease, oxygen 3L at all times , chronic kidney disease stage II, recent UTI, hemorrhoids, hx psoriasis, osteoporosis, sinus problems, pulmonary fibrosis History of Any Multi-Drug Resistant Organisms: MRSA Date of last positivie culture/infection: 2010 MDRO Source:: lungs Past Surgical History: Tubal Ligation Additional Past Surgical History / Comment(s): EGD/colonoscopy, uterine fibroidectomy during which urethra was removed and reconstructed, bilateral cataract removal. Past Anesthesia/Blood Transfusion Reactions: No Reported Reaction Past Psychological History: Anxiety Additional Psychological History / Comment(s): Pt resides with spouse and other family members. She is independent. She has home O2 and a nebulizer. Pet dog lives in the home. Patient's 2 sons and one grandchild also lives with them. No history of international travel any time in her life. No experience. 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 Has never traveled outside of the [place] region. Smoking Status: Former smoker Past Alcohol Use History: None Reported Additional Past Alcohol Use History / Comment(s): Pt states she started smoking at age 16 yrs (1952) and quit about 1991 Past Drug Use History: None Reported - Past Family History Mother Family Medical History: Unable to Obtain Additional Family Medical History / Comment(s): Pt does not recall mother's medical hx. She states she lived into her late 80's maybe even to age 90yrs. Father Family Medical History: Cancer Additional Family Medical History / Comment(s): . Medications and Allergies Home Medications Medication Instructions Recorded Confirmed Type Alendronate Sodium 70 mg PO Q7D 06/27/16 01/11/18 History Famotidine [Pepcid] 20 mg PO BID 06/27/16 01/11/18 History Meloxicam 15 mg PO DAILY 06/27/16 01/11/18 History Methotrexate Sodium [Methotrexate] 20 mg PO FR 06/27/16 01/11/18 History Metoprolol Tartrate [Lopressor] 25 mg PO BID 06/27/16 01/11/18 History Pravastatin Sodium [Pravachol] 40 mg PO HS 06/27/16 01/11/18 History Albuterol Nebulized [Ventolin 2.5 mg INHALATION RT-Q4H PRN 01/11/18 01/11/18 History Nebulized] Aspirin [Adult Low Dose Aspirin EC] 81 mg PO HS 01/11/18 01/11/18 History Budesonide [Pulmicort] 0.5 mg INHALATION RT-Q8H 01/11/18 01/11/18 History Cholecalciferol [Vitamin D3] 1,000 unit PO DAILY 01/11/18 01/11/18 History Fluticasone Nasal [place] [Flonase 2 spr EA NOSTRIL DAILY 01/11/18 01/11/18 History Nasal [place]] Folic Acid 1 mg PO DAILY 01/11/18 01/11/18 History Ipratropium Nebulized [Atrovent 0.5 mg INHALATION RT-Q6H 01/11/18 01/11/18 History Nebulized] Multivitamins, Thera [Multivitamin 1 tab PO DAILY 01/11/18 01/11/18 History (formulary)] Psyllium Husk [Metamucil] 0.4 gm PO DAILY 01/11/18 01/11/18 History carBAMazepine [TEGretol XR] 100 mg PO Q12H 01/11/18 01/11/18 History predniSONE See Taper PO DIRECTED 01/11/18 01/11/18 History Allergies Allergy/AdvReac Type Severity Reaction Status Date / Time No Known Allergies Allergy Verified 01/11/18 13:43 Physical Exam Vitals: Vital Signs Temp Pulse Pulse Resp BP Pulse Ox 01/13/18 15:50 84 01/13/18 15:36 84 01/13/18 15:12 98.2 F 86 20 128/62 96 01/13/18 12:39 84 01/13/18 12:26 80 01/13/18 11:07 98.3 F 87 20 132/68 96 01/13/18 09:56 84 01/13/18 09:35 84 01/13/18 08:00 98.3 F 87 20 148/74 97 01/13/18 04:00 97.4 F L 89 20 149/88 100 01/13/18 00:00 98 F 67 16 136/75 94 L 01/12/18 21:07 84 01/12/18 20:46 84 01/12/18 20:00 97 F L 77 18 123/66 97 Intake and Output 01/13/18 01/13/18 01/13/18 06:59 14:59 22:59 Intake Total 240 Output Total 800 650 Balance -560 -650 Intake: Oral 240 Output: Urine 800 650 Other: Voiding Method Bedside Commode Bedside Commode Bedside Commode # Voids 3 3 Weight 54.6 kg 54.6 kg General appearance: alert, in distress Head exam: Present: atraumatic Eye exam: Present: normal appearance, PERRL ENT exam: Present: normal oropharynx Neck exam: Present: normal inspection Respiratory exam: Present: respiratory distress, decreased breath sounds Cardiovascular Exam: Present: regular rate, normal rhythm GI/Abdominal exam: Present: soft. Absent: tenderness Extremities exam: Present: normal inspection Neurological exam: Present: alert Psychiatric exam: Present: anxious Skin exam: Present: normal color Results - Laboratory Findings CBC and BMP: 01/13/18 06:13 01/13/18 06:13 Abnormal lab findings: Abnormal Labs 01/11/18 01/11/18 01/12/18 13:15 13:15 05:56 WBC 14.0 H RBC 3.77 L Hgb 10.7 L Hct 33.4 L RDW 20.6 H Plt Count 611 H Neutrophils # 10.3 H Potassium 5.4 H BUN 20 H Creatinine 1.32 H Glucose 115 H POC Glucose (mg/dL) 129 H Hemoglobin A1c Urine Blood Ur Leukocyte Esterase Urine WBC 01/12/18 01/12/18 01/12/18 06:33 06:33 06:33 WBC 12.6 H RBC 3.21 L Hgb 8.8 L D Hct 28.3 L RDW 20.1 H Plt Count 581 H Neutrophils # 10.9 H Potassium 5.7 H BUN 24 H Creatinine 1.09 H Glucose 113 H POC Glucose (mg/dL) Hemoglobin A1c 6.1 H Urine Blood Ur Leukocyte Esterase Urine WBC 01/12/18 01/12/18 01/12/18 11:18 16:33 21:08 WBC RBC Hgb Hct RDW Plt Count Neutrophils # Potassium BUN Creatinine Glucose POC Glucose (mg/dL) 102 H 127 H 142 H Hemoglobin A1c Urine Blood Ur Leukocyte Esterase Urine WBC 01/13/18 01/13/18 01/13/18 06:13 06:13 07:33 WBC 19.1 H RBC 2.98 L Hgb 8.2 L Hct 26.0 L RDW 20.3 H Plt Count 622 H Neutrophils # 17.0 H Potassium 5.4 H BUN 32 H Creatinine 1.27 H Glucose POC Glucose (mg/dL) Hemoglobin A1c Urine Blood Trace H Ur Leukocyte Esterase Trace H Urine WBC 7 H 01/13/18 01/13/18 11:56 17:01 WBC RBC Hgb Hct RDW Plt Count Neutrophils # Potassium BUN Creatinine Glucose POC Glucose (mg/dL) 127 H 123 H Hemoglobin A1c Urine Blood Ur Leukocyte Esterase Urine WBC - Diagnostic Findings Chest x-ray: report reviewed (Right upper lobe pneumonia and dense consolidation with chronic and progressive worsening) Assessment and Plan Assessment: Sepsis associated right upper lobe pneumonia Right upper lobe slowly enlarging mass with a differential diagnosis of neoplastic processes versus associated with rheumatoid lung disease versus pulmonary fibrosis Pulmonary fibrosis Pulmonary hypertension 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 Generalized weakness medical debility cachexia and weight loss GERD, dyslipidemia, degenerative joint disease osteoarthritis, advanced rheumatoid arthritis Plan: Gentle rehydration IV steroids Broad-spectrum antibiotics Computed tomography scan of the chest will do it with diet if renal functions normalized otherwise will do without dye Further recommendations pending plan of care as per clinical response of the patient Time with Patient: Greater than 30
--- NOTE | 2018-01-13 19:25 | P.PN ---
Subjective Progress Note Date: 01/13/18 Principal diagnosis: Right upper lobe pneumonia, leukocytosis, sepsis, right upper lobe slowly enlarging mass, pulmonary hypertension, advanced rheumatoid arthritis 01/13/2018, patient seen eval examined during the rounds clinically slightly better compared to yesterday exam is still short of breath slightly confused, medications and laboratory data reviewed white cell count is slowly going up likely related to steroids renal functions remains elevated cannot do CT with dye or rather do without dye Patient is a pleasant 82-year-old female who was seen and evaluated examined on fourth floor this patient is well-known to me he has a history of right upper lobe consolidation for which multiple bronchoscopy has been done in the past they were nondiagnostic biopsies were not performed due to risk of pneumothorax and patient also has declined recently patient has been found to have significant pulmonary hypertension likely related to end-stage lung disease and severe COPD emphysema is being sent for a further evaluation today and history of [facility] as well as evaluation of right upper lobe density patient was seen last year then she lost to follow-up and was seen recently after 6 months in the office the right upper lobe mass appears to have increased in size detailed discussion for aggressive intervention like biopsies were performed but however patient declined due to risk of pneumothorax, she is now readmitted with progressive worsening of shortness breath and respiratory distress she responded well with BiPAP in the ER currently on supplemental oxygen fevers and looked slightly better Objective - Vital Signs Vital signs: Vital Signs Temp 98.2 F 01/13/18 15:12 Pulse 84 01/13/18 15:50 Resp 20 01/13/18 15:12 BP 128/62 01/13/18 15:12 Pulse Ox 96 01/13/18 15:12 Intake & Output 01/13/18 01/13/18 01/14/18 06:59 18:59 06:59 Intake Total 240 Output Total 1600 650 Balance -1360 -650 Weight 54.6 kg 54.6 kg Intake: Oral 240 Output: Urine 1600 650 Other: Voiding Method Bedside Commode Bedside Commode # Voids 3 3 - Exam General appearance: alert, in distress Head exam: Present: atraumatic Eye exam: Present: normal appearance, PERRL ENT exam: Present: normal oropharynx Neck exam: Present: normal inspection Respiratory exam: Present: respiratory distress, decreased breath sounds Cardiovascular Exam: Present: regular rate, normal rhythm GI/Abdominal exam: Present: soft. Absent: tenderness Extremities exam: Present: normal inspection Neurological exam: Present: alert Psychiatric exam: Present: anxious Skin exam: Present: normal color - Labs CBC & Chem 7: 01/13/18 06:13 01/13/18 06:13 Labs: Abnormal Lab Results - Last 24 Hours (Table) 01/12/18 01/12/18 01/13/18 Range/Units 06:33 21:08 06:13 WBC 19.1 H (3.8-10.6) k/uL RBC 2.98 L (3.80-5.40) m/uL Hgb 8.2 L (11.4-16.0) gm/dL Hct 26.0 L (34.0-46.0) % RDW 20.3 H (11.5-15.5) % Plt Count 622 H (150-450) k/uL Neutrophils # 17.0 H (1.3-7.7) k/uL Potassium (3.5-5.1) mmol/L BUN (7-17) mg/dL Creatinine (0.52-1.04) mg/dL POC Glucose (mg/dL) 142 H (75-99) mg/dL Hemoglobin A1c 6.1 H (4.0-6.0) % Urine Blood (Negative) Ur Leukocyte Esterase (Negative) Urine WBC (0-5) /hpf 01/13/18 01/13/18 01/13/18 Range/Units 06:13 07:33 11:56 WBC (3.8-10.6) k/uL RBC (3.80-5.40) m/uL Hgb (11.4-16.0) gm/dL Hct (34.0-46.0) % RDW (11.5-15.5) % Plt Count (150-450) k/uL Neutrophils # (1.3-7.7) k/uL Potassium 5.4 H (3.5-5.1) mmol/L BUN 32 H (7-17) mg/dL Creatinine 1.27 H (0.52-1.04) mg/dL POC Glucose (mg/dL) 127 H (75-99) mg/dL Hemoglobin A1c (4.0-6.0) % Urine Blood Trace H (Negative) Ur Leukocyte Esterase Trace H (Negative) Urine WBC 7 H (0-5) /hpf 01/13/18 Range/Units 17:01 WBC (3.8-10.6) k/uL RBC (3.80-5.40) m/uL Hgb (11.4-16.0) gm/dL Hct (34.0-46.0) % RDW (11.5-15.5) % Plt Count (150-450) k/uL Neutrophils # (1.3-7.7) k/uL Potassium (3.5-5.1) mmol/L BUN (7-17) mg/dL Creatinine (0.52-1.04) mg/dL POC Glucose (mg/dL) 123 H (75-99) mg/dL Hemoglobin A1c (4.0-6.0) % Urine Blood (Negative) Ur Leukocyte Esterase (Negative) Urine WBC (0-5) /hpf Microbiology - Last 24 Hours (Table) 01/11/18 13:15 Blood Culture - Preliminary Blood No Growth after 48 hours 01/13/18 07:33 Urine Culture - Preliminary Urine,Clean Catch 01/11/18 16:20 Gram Stain - Final Sputum Sputum Culture - Final Assessment and Plan Assessment: Sepsis associated right upper lobe pneumonia Right upper lobe slowly enlarging mass with a differential diagnosis of neoplastic processes versus associated with rheumatoid lung disease versus pulmonary fibrosis Pulmonary fibrosis Pulmonary hypertension 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 Generalized weakness medical debility cachexia and weight loss GERD, dyslipidemia, degenerative joint disease osteoarthritis, advanced rheumatoid arthritis Plan: Gentle rehydration IV steroids Broad-spectrum antibiotics Computed tomography scan of the chest will do it with diet if renal functions normalized otherwise will do without dye Further recommendations pending plan of care as per clinical response of the patient Time with Patient: Greater than 30
[2018-01-13] MEDS: ASPIRIN 81 MG PO SCH (20:11)
[2018-01-13] MEDS: methylPREDNISolone SOD SUCCI 40 MG/ML 1 ML VIAL IV SCH (20:12)
[2018-01-13] MEDS: PRAVASTATIN SODIUM 40 MG TAB PO SCH (20:13)
[2018-01-13 21:07] LABS: Glucose,Whole Blood 193 mg/dL (75-99)
--- NOTE | 2018-01-13 22:27 | CT ---
EXAMINATION TYPE: CT chest wo con DATE OF EXAM: 01/13/2018 COMPARISON: CT November 26, 2017 HISTORY: Right upper lobe mass, Dyspnea CT DLP: 172.2 mGycm. Automated Exposure Control for Dose Reduction was Utilized. TECHNIQUE: CT scan of the thorax is performed without IV contrast. FINDINGS: LUNGS: The size and morphology of the cavitary right upper lobe lesion is unaltered, with the dimensi ons again measuring 6 x 6 x 7.5 cm. Manger of the lungs have the same appearance as the prior study. MEDIASTINUM: There are no definitive greater than 1 cm hilar or mediastinal lymph nodes. Extensive th ree-vessel coronary calcifications are redemonstrated. Scant amount pericardial fluid is noted again. No cardiomegaly. VISUALIZED SUBDIAPHRAGMATIC STRUCTURES: No acute findings. SKELETAL STRUCTURES: Unremarkable. IMPRESSION: STABLE RIGHT UPPER LOBE CAVITARY LESION; NO NEW PROCESS.
[2018-01-14 05:58] LABS: Anisocytosis Moderate; Basophils % (A) 0 %; Eosinophils % (A) 0 %; HCT 28.8 % (34.0-46.0); HGB 8.9 gm/dL (11.4-16.0); Hypochromasia Moderate; Lymphocytes # (A) 1.6 k/uL (1.0-4.8); Lymphocytes % (A) 9 %; MCH 27.4 pg (25.0-35.0); MCHC 30.8 g/dL (31.0-37.0); MCV 88.8 fL (80.0-100.0); Mean Platelet Volume 6.4; Monocytes # (A) 0.5 k/uL (0-1.0); Monocytes % (A) 3 %; Neutrophils # (A) 15.5 k/uL (1.3-7.7); Neutrophils % (A) 88 %; Platelet Count 633 k/uL (150-450); RBC 3.25 m/uL (3.80-5.40); RDW 20.2 % (11.5-15.5); WBC 17.7 k/uL (3.8-10.6)
[2018-01-14 06:08] LABS: Glucose,Whole Blood 85 mg/dL (75-99)
[2018-01-14 06:14] LABS: Albumin 3.1 g/dL (3.5-5.0); Calcium 10.3 mg/dL (8.4-10.2); Potassium 5.6 mmol/L (3.5-5.1); Total Bilirubin 0.2 mg/dL (0.2-1.3); Total Protein 5.9 g/dL (6.3-8.2)
[2018-01-14] MEDS: SODIUM CHLORIDE 0.9% 1,000 ML IV SCH (06:18)
[2018-01-14] MEDS: INSULIN ASPART 100 UNIT/ML 1 ML 10 ML VIAL SQ SCH ×4 (06:19→21:43)
[2018-01-14] MEDS: PANTOPRAZOLE 40 MG TABLET PO SCH (06:21)
[2018-01-14] MEDS: BUDESONIDE 0.5 MG/2 ML NEBU INHALATION SCH ×2 (08:31→19:40)
[2018-01-14] MEDS: IPRATROPIUM-ALBUTEROL 3 ML NEB INHALATION SCH ×4 (08:32→19:40)
[2018-01-14] MEDS: FAMOTIDINE 20 MG TAB PO SCH (08:55)
[2018-01-14] MEDS: AZITHROMYCIN 500 MG TAB PO SCH (08:55)
[2018-01-14] MEDS: HEPARIN SODIUM,PORCINE 5,000 UNIT/ML 1 ML VIAL SQ SCH ×2 (08:56→21:44)
[2018-01-14] MEDS: MELOXICAM 7.5 MG TAB PO SCH (08:57)
[2018-01-14] MEDS: METOPROLOL TARTRATE 25 MG TAB PO SCH ×2 (08:58→21:44)
[2018-01-14] MEDS: methylPREDNISolone SOD SUCCI 40 MG/ML 1 ML VIAL IV SCH ×2 (08:58→21:44)
[2018-01-14] MEDS: FLUTICASONE 50MCG/SPRAY NASAL 16GM EA NOSTRIL SCH (09:02)
[2018-01-14] MEDS: cefTRIAXone IN SWFI 1,000 MG/10 ML SYRINGE IVP SCH (09:02)
[2018-01-14] MEDS: PSYLLIUM HUSK 100% 6 GM PACKET PO SCH (09:11)
[2018-01-14] MEDS: carBAMazepine 100 MG TAB.ER.12H PO SCH ×2 (09:11→21:44)
--- NOTE | 2018-01-14 11:05 | CDI ---
Last Revision, September 2017 Documentation Clarification Form Date: January 14, 2018 From: Sydni Hanks RN Admit Date: 01/11/2018 2:22:00 PM Patient Name: Karen Jordan Visit Number: [id number] ATTENTION: The Clinical Documentation Specialists (CDI) and [facility] Coding Staff appreciate your assistance in clarifying documentation. Please respond to the clarification below the line at the bottom and electronically sign. The CDI & [facility] Coding staff will review the response and follow-up if needed. Please note: Queries are made part of the Legal Health Record. If you have any questions, please contact the author of this message via ITS. Dr. Carson Maher, Pneumonia was documented in your notes on: 01/11 - 01/13 History/Risk Factors: copd, gerd, hyperlipidemia, djd, pneumonia, ra, skin disorders, chronic hypoxic respiratory failure Clinical Indicators: WBC on admission: 124.0 Treatment: Antibiotics: IV Azithromycin, IV Ceftriaxone Pneumonia Protocol activated Breathing Tx: Duoneb In order to capture the severity of condition, please clarify if the condition signifies and you are treating for: Aspiration Pneumonia, Bacterial Pneumonia, specify causal organism (if known) Gram Negative Pneumonia Due to Strep Due to Staph Due to E. Coli Other bacteria (please specify) Viral Pneumonia, specify casual organism (if known) Healthcare Acquired Pneumonia/Pneumonia, unspecified Other, please specify Unable to determine Please continue to document in your progress notes, under line below and/or in the discharge summary in order to capture severity of illness and risk of mortality. Include clinical findings that support your diagnosis. Gram Negative Pneumonia MTDD
[2018-01-14] MEDS: FOLIC ACID 1 MG TAB PO SCH (11:09)
[2018-01-14] MEDS: MULTIVITAMINS, THERA 1 EACH TAB PO SCH (11:09)
[2018-01-14] MEDS: CHOLECALCIFEROL 1,000 UNIT TAB PO SCH (11:09)
[2018-01-14 11:47] LABS: Glucose,Whole Blood 97 mg/dL (75-99)
[2018-01-14 16:41] LABS: Glucose,Whole Blood 177 mg/dL (75-99)
--- NOTE | 2018-01-14 17:20 | PN ---
PROGRESS NOTE DATE OF SERVICE: 01/14/2018 This 82-year-old woman was admitted COPD acute exacerbation also had pneumonia, still has significant shortness of breath. The CT scan showed significant multiple bullous lesions and the possibility of mass lesion versus pneumonia also. A fungal ball is also being suspected. Dr. Velázquez is following the patient closely. PAST MEDICAL HISTORY: Reviewed. REVIEW OF SYSTEMS: CARDIOVASCULAR: No angina. RESPIRATION: As mentioned earlier. GI: As mentioned earlier. : No dysuria. NERVOUS SYSTEM: No numbness, weakness. MEDS: Current medications are reviewed: 1. DuoNeb q.i.d. and p.r.n. 2. Xanax 0.5 t.i.d. 3. Aspirin 81 mg q.h.s. 4. Pulmicort 0.5 b.i.d. 5. Rocephin 1 g daily. 6. Vitamin D3. 7. Pepcid. 8. Flonase. 9. Heparin. 10.Humalog. 11.Methotrexate. 12.Solu-Medrol 40 IV b.i.d. 13.Protonix. 14.Pravachol. 15.Metamucil. PHYSICAL EXAM: Patient is alert, oriented x3. Pulse 85, blood pressure 129/68, respiration 20, temperature 96.8, pulse ox 98% on 3 L. HEENT: Conjunctivae normal. NECK: No jugular venous distention. CARDIOVASCULAR: S1, S2. RESPIRATORY: Breath sounds diminished in the bases. Bilateral scattered rhonchi and expiratory wheezing and crackles. ABDOMEN: Soft, nontender. No mass palpable. LEGS: No edema. NERVOUS SYSTEM: No focal deficit. LABS: WBC 17.3, hemoglobin is 8.9, sodium 139, potassium 5.6. ASSESSMENT: 1. Chronic obstructive pulmonary disease exacerbation with possible acute right upper lobe pneumonia. 2. Multiple bullous lesions and bullous emphysema especially on the right side more than the left. 3. History of gastroesophageal reflux disease. 4. Hyperlipidemia. 5. Hypokalemia. 6. Possible fungal ball. 7. History of degenerative joint disease. 8. History of pneumonia. 9. History rheumatoid arthritis. 10.History of skin disorder. 11.History of chronic hypoxic respiratory failure. 12.History of pulmonary fibrosis. 13.History of chronic kidney disease stage II. 14.History of recent urinary tract infection. 15.Osteoporosis. RECOMMENDATIONS AND DISCUSSION: This 82-year-old woman who presented with multiple complex medical issues, will monitor the patient closely. Continue the current management and treatment. Otherwise at this time I recommend broad-spectrum antibiotics. Infectious Disease evaluation. Pulmonary consultation. Discussed with Dr. Velázquez. The patient carries high risk for a pneumothorax, either acute lung biopsy or even percutaneous lung biopsy at this time. Dr. Velázquez will re-evaluate the patient and consider bronchoscopy outpatient when the patient is more stable. We will follow the patient closely. Otherwise guarded prognosis. Repeat labs have been ordered. DVT prophylaxis and cultures are noted. Normal yobany suspected. Guarded prognosis. Further recommendations to follow. See orders for details. MMODL / IJN: [id number] /
--- NOTE | 2018-01-14 18:25 | P.PN ---
Subjective Progress Note Date: 01/14/18 Principal diagnosis: Right upper lobe pneumonia, leukocytosis, sepsis, right upper lobe slowly enlarging mass, pulmonary hypertension, advanced rheumatoid arthritis 01/14/2018, patient seen eval reexamined during the rounds clinically doing better more awake and alert breathing comfortably no obvious distress is present patient underwent a computed tomography scan of the chest which is reviewed, continue show a right upper lobe cavitary lesion, cavity is thick walled about 6 cm in size which over the period time slowly enlarging however extensive degree of bullous lung disease present doesn't surrounding makes it very complicated to do a lung biopsy either transbronchial and transthoracic in addition now patient has been found to have pulmonary hypertension not only on echocardiogram but also as it appears on the CAT scan makes with a high risk of bleeding complication as well will discuss these issues with the family I left a message to the daughter in the meantime we'll continue treatment with antibiotics and supportive care overall however prognosis poor 01/13/2018, patient seen eval examined during the rounds clinically slightly better compared to yesterday exam is still short of breath slightly confused, medications and laboratory data reviewed white cell count is slowly going up likely related to steroids renal functions remains elevated cannot do CT with dye or rather do without dye Patient is a pleasant 82-year-old female who was seen and evaluated examined on fourth floor this patient is well-known to me he has a history of right upper lobe consolidation for which multiple bronchoscopy has been done in the past they were nondiagnostic biopsies were not performed due to risk of pneumothorax and patient also has declined recently patient has been found to have significant pulmonary hypertension likely related to end-stage lung disease and severe COPD emphysema is being sent for a further evaluation today and history of [facility] [place] as well as evaluation of right upper lobe density patient was seen last year then she lost to follow-up and was seen recently after 6 months in the office the right upper lobe mass appears to have increased in size detailed discussion for aggressive intervention like biopsies were performed but however patient declined due to risk of pneumothorax, she is now readmitted with progressive worsening of shortness breath and respiratory distress she responded well with BiPAP in the ER currently on supplemental oxygen fevers and looked slightly better Objective - Vital Signs Vital signs: Vital Signs Temp 97.8 F 01/14/18 16:00 Pulse 72 01/14/18 16:00 Resp 20 01/14/18 16:00 BP 144/74 01/14/18 16:00 Pulse Ox 99 01/14/18 16:00 Intake & Output 01/13/18 01/14/18 01/14/18 18:59 06:59 18:59 Intake Total 1320 Output Total 650 600 Balance -650 -600 1320 Weight 54.6 kg 54.9 kg Intake: Oral 1320 Output: Urine 650 600 Other: Voiding Method Bedside Commode Bedside Commode Bedside Commode # Voids 3 1 500 - Exam General appearance: alert, in distress Head exam: Present: atraumatic Eye exam: Present: normal appearance, PERRL ENT exam: Present: normal oropharynx Neck exam: Present: normal inspection Respiratory exam: Present: respiratory distress, decreased breath sounds Cardiovascular Exam: Present: regular rate, normal rhythm GI/Abdominal exam: Present: soft. Absent: tenderness Extremities exam: Present: normal inspection Neurological exam: Present: alert Psychiatric exam: Present: anxious Skin exam: Present: normal color - Labs CBC & Chem 7: 01/14/18 05:25 01/14/18 05:25 Labs: Abnormal Lab Results - Last 24 Hours (Table) 01/13/18 01/14/18 01/14/18 Range/Units 21:05 05:25 05:25 WBC 17.7 H (3.8-10.6) k/uL RBC 3.25 L (3.80-5.40) m/uL Hgb 8.9 L (11.4-16.0) gm/dL Hct 28.8 L (34.0-46.0) % MCHC 30.8 L (31.0-37.0) g/dL RDW 20.2 H (11.5-15.5) % Plt Count 633 H (150-450) k/uL Neutrophils # 15.5 H (1.3-7.7) k/uL Potassium 5.6 H (3.5-5.1) mmol/L BUN 34 H (7-17) mg/dL Creatinine 1.20 H (0.52-1.04) mg/dL POC Glucose (mg/dL) 193 H (75-99) mg/dL Calcium 10.3 H (8.4-10.2) mg/dL AST 12 L (14-36) U/L Total Protein 5.9 L (6.3-8.2) g/dL Albumin 3.1 L (3.5-5.0) g/dL 01/14/18 Range/Units 16:39 WBC (3.8-10.6) k/uL RBC (3.80-5.40) m/uL Hgb (11.4-16.0) gm/dL Hct (34.0-46.0) % MCHC (31.0-37.0) g/dL RDW (11.5-15.5) % Plt Count (150-450) k/uL Neutrophils # (1.3-7.7) k/uL Potassium (3.5-5.1) mmol/L BUN (7-17) mg/dL Creatinine (0.52-1.04) mg/dL POC Glucose (mg/dL) 177 H (75-99) mg/dL Calcium (8.4-10.2) mg/dL AST (14-36) U/L Total Protein (6.3-8.2) g/dL Albumin (3.5-5.0) g/dL Microbiology - Last 24 Hours (Table) 01/11/18 13:15 Blood Culture - Preliminary Blood No Growth after 72 hours 01/13/18 07:33 Urine Culture - Final Urine,Clean Catch Assessment and Plan Assessment: Sepsis associated right upper lobe pneumonia Right upper lobe slowly enlarging cavitary mass mass with a differential diagnosis of neoplastic processes versus associated with rheumatoid lung disease versus pulmonary fibrosis, infected bulla Pulmonary fibrosis Severe and extensive bullous lung disease Pulmonary hypertension 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 Generalized weakness medical debility cachexia and weight loss GERD, dyslipidemia, degenerative joint disease osteoarthritis, advanced rheumatoid arthritis Plan: Gentle rehydration IV steroids Broad-spectrum antibiotics Computed tomography scan of the chest reviewed patient is at very high risk of complication associated with either of transbronchial and transthoracic with not only pneumothorax but also bleeding complication, these issues to be discussed further again with the family Further recommendations pending plan of care as per clinical response of the patient Time with Patient: Greater than 30
[2018-01-14 20:48] LABS: Glucose,Whole Blood 114 mg/dL (75-99)
[2018-01-14] MEDS: ASPIRIN 81 MG PO SCH (21:43)
[2018-01-14] MEDS: PRAVASTATIN SODIUM 40 MG TAB PO SCH (21:44)
[2018-01-15] MEDS ORDERED: SODIUM POLYSTYRENE SULFONATE 15 GM/60 ML BOTTLE PO ONE (00:34)
[2018-01-15 06:14] LABS: Glucose,Whole Blood 125 mg/dL (75-99)
[2018-01-15] MEDS: INSULIN ASPART 100 UNIT/ML 1 ML 10 ML VIAL SQ SCH ×4 (06:27→21:02)
[2018-01-15] MEDS: PANTOPRAZOLE 40 MG TABLET PO SCH (06:28)
[2018-01-15 06:50] LABS: Anisocytosis Moderate; Basophils % (A) 0 %; Eosinophils % (A) 0 %; HCT 26.7 % (34.0-46.0); HGB 8.4 gm/dL (11.4-16.0); Hypochromasia Slight; Lymphocytes # (A) 1.4 k/uL (1.0-4.8); Lymphocytes % (A) 10 %; MCH 27.3 pg (25.0-35.0); MCHC 31.4 g/dL (31.0-37.0); Mean Platelet Volume 6.8; Monocytes # (A) 0.6 k/uL (0-1.0); Monocytes % (A) 4 %; Neutrophils # (A) 11.3 k/uL (1.3-7.7); Neutrophils % (A) 85 %; Platelet Count 581 k/uL (150-450); RBC 3.07 m/uL (3.80-5.40); RDW 20.5 % (11.5-15.5); WBC 13.4 k/uL (3.8-10.6)
[2018-01-15 07:10] LABS: Calcium 9.6 mg/dL (8.4-10.2); Potassium 5.7 mmol/L (3.5-5.1)
[2018-01-15] MEDS: SODIUM CHLORIDE 0.9% 1,000 ML IV SCH (07:16)
[2018-01-15] MEDS: PSYLLIUM HUSK 100% 6 GM PACKET PO SCH (07:50)
[2018-01-15] MEDS: FLUTICASONE 50MCG/SPRAY NASAL 16GM EA NOSTRIL SCH (07:52)
[2018-01-15] MEDS: AZITHROMYCIN 500 MG TAB PO SCH (07:52)
[2018-01-15] MEDS: HEPARIN SODIUM,PORCINE 5,000 UNIT/ML 1 ML VIAL SQ SCH ×2 (07:53→21:02)
[2018-01-15] MEDS: FAMOTIDINE 20 MG TAB PO SCH (07:53)
[2018-01-15] MEDS: METOPROLOL TARTRATE 25 MG TAB PO SCH ×2 (07:54→21:02)
[2018-01-15] MEDS: methylPREDNISolone SOD SUCCI 40 MG/ML 1 ML VIAL IV SCH ×2 (07:54→21:02)
[2018-01-15] MEDS: IPRATROPIUM-ALBUTEROL 3 ML NEB INHALATION SCH ×4 (08:57→19:19)
[2018-01-15] MEDS: BUDESONIDE 0.5 MG/2 ML NEBU INHALATION SCH ×2 (08:57→19:19)
--- NOTE | 2018-01-15 09:08 | XR ---
EXAMINATION TYPE: XR chest 1V portable DATE OF EXAM: 01/15/2018 COMPARISON: Chest CT 01/13/2018, chest x-ray 01/12/2018 HISTORY: Abnormal chest x-ray, cavitary right upper lobe lesion TECHNIQUE: Single frontal view of the chest is obtained. FINDINGS: Cavitary lesion in the right upper lobe is again noted with thickened wall. Patient appear s rotated, there are overlying cardiac leads. Persistent pleural-parenchymal changes present at the l jesús bases. Heart size is likely stable. No evident pneumothorax. No evident pleural effusion. Promine nt lung volumes compatible with underlying COPD. Volume loss noted in the right hemithorax. IMPRESSION: Cavitary lesion in the right upper lobe persists. Basilar atelectasis versus scarring. C orrelate to exclude pneumonia.
[2018-01-15] MEDS: cefTRIAXone IN SWFI 1,000 MG/10 ML SYRINGE IVP SCH (10:30)
[2018-01-15] MEDS: MELOXICAM 7.5 MG TAB PO SCH (10:30)
[2018-01-15] MEDS: carBAMazepine 100 MG TAB.ER.12H PO SCH ×2 (10:31→21:02)
[2018-01-15] MEDS ORDERED: SODIUM POLYSTYRENE SULFONATE 15 GM/60 ML BOTTLE PO STA (10:45)
[2018-01-15 11:47] LABS: Glucose,Whole Blood 139 mg/dL (75-99)
[2018-01-15] MEDS: FOLIC ACID 1 MG TAB PO SCH (12:02)
[2018-01-15] MEDS: CHOLECALCIFEROL 1,000 UNIT TAB PO SCH (12:02)
[2018-01-15] MEDS: MULTIVITAMINS, THERA 1 EACH TAB PO SCH (12:25)
--- NOTE | 2018-01-15 14:48 | PN ---
PROGRESS NOTE DATE OF SERVICE: 01/15/2018 This 82-year-old woman was admitted with COPD acute exacerbation as well as right upper lobe pneumonia, also had multiple bullous lesions. Dr. Velázquez is following the patient closely. Conservative line of management is being recommended. No chest pain. No palpitations. Patient complained of generalized weakness, ECF rehab is also a possibility. PHYSICAL EXAM: Alert and oriented x3, pulse 78, blood pressure 130/70, respiration 20, temperature 97.2 pulse of 92, pulse ox 94% on 3 L. HEENT: Conjunctivae normal. NECK: No jugular venous distension. No neck pain. CARDIOVASCULAR: S1, S2, muffled. RESPIRATORY: Breath sounds diminished at the bases, bilateral scattered rhonchi, no crackles. Abdomen is soft, nontender. No mass palpable. LEGS: No edema, no swelling. NERVOUS SYSTEM: No focal deficits. LABS: WBC is 13.5, hemoglobin is 8.4, sodium 138, potassium 5.7. ASSESSMENT: 1. Chronic obstructive pulmonary disease acute exacerbation with possible acute right upper lobe pneumonia. 2. Bullous lesions and bullous emphysema especially on the right side, right more than the left. 3. History of gastroesophageal reflux disease. 4. Hyperlipidemia. 5. Hypokalemia. 6. Possible fungal ball. 7. History of degenerative joint disease. 8. History pneumonia. 9. History of history rheumatoid arthritis. 10.History of skin disorder. 11.History of chronic hypoxic respiratory failure. 12.History of pulmonary fibrosis. 13.History of chronic kidney disease stage II. 14.History of recent urinary tract infection. 15.Osteoporosis. 16.Gait dysfunction. RECOMMENDATION: Recommend to continue with current management and symptomatic treatment. Otherwise, PT, OT evaluation. Closely follow with Dr. Velázquez. Guarded prognosis. Further recommendations to follow. MMODL / IJN: [id number] /
[2018-01-15 16:51] LABS: Glucose,Whole Blood 153 mg/dL (75-99)
--- NOTE | 2018-01-15 19:34 | P.PN ---
Subjective Progress Note Date: 01/15/18 Principal diagnosis: Right upper lobe pneumonia, leukocytosis, sepsis, right upper lobe slowly enlarging mass, pulmonary hypertension, advanced rheumatoid arthritis 01/15/2018, patient seen eval reexamined she sitting upright on the bed breathing comfortably no obvious distress is present she does have intermittent cough which is associated with light yellow thick sputum production computed tomography scan of the chest which was performed reviewed and compared with the prior CAT scan large right upper lobe thick-walled cavity is present which appears to be infected bulla versus neoplasm, patient however appeared to be responding with regular therapy patient is extremely high risk for either CT- guided or transbronchial biopsy of the lung related with not only pneumothorax plus also hemothorax and bleeding complication given that patient has a significant pulmonary hypertension these issues has been discussed with the daughter at length my recommendation this point of time is to treat patient conservatively and monitor observe closely 01/14/2018, patient seen eval reexamined during the rounds clinically doing better more awake and alert breathing comfortably no obvious distress is present patient underwent a computed tomography scan of the chest which is reviewed, continue show a right upper lobe cavitary lesion, cavity is thick walled about 6 cm in size which over the period time slowly enlarging however extensive degree of bullous lung disease present doesn't surrounding makes it very complicated to do a lung biopsy either transbronchial and transthoracic in addition now patient has been found to have pulmonary hypertension not only on echocardiogram but also as it appears on the CAT scan makes with a high risk of bleeding complication as well will discuss these issues with the family I left a message to the daughter in the meantime we'll continue treatment with antibiotics and supportive care overall however prognosis poor 01/13/2018, patient seen eval examined during the rounds clinically slightly better compared to yesterday exam is still short of breath slightly confused, medications and laboratory data reviewed white cell count is slowly going up likely related to steroids renal functions remains elevated cannot do CT with dye or rather do without dye Patient is a pleasant 82-year-old female who was seen and evaluated examined on fourth floor this patient is well-known to me he has a history of right upper lobe consolidation for which multiple bronchoscopy has been done in the past they were nondiagnostic biopsies were not performed due to risk of pneumothorax and patient also has declined recently patient has been found to have significant pulmonary hypertension likely related to end-stage lung disease and severe COPD emphysema is being sent for a further evaluation today and history of [facility] as well as evaluation of right upper lobe density patient was seen last year then she lost to follow-up and was seen recently after 6 months in the office the right upper lobe mass appears to have increased in size detailed discussion for aggressive intervention like biopsies were performed but however patient declined due to risk of pneumothorax, she is now readmitted with progressive worsening of shortness breath and respiratory distress she responded well with BiPAP in the ER currently on supplemental oxygen fevers and looked slightly better Objective - Vital Signs Vital signs: Vital Signs Temp 96.8 F L 01/15/18 15:39 Pulse 75 01/15/18 19:19 Resp 20 01/15/18 15:39 BP 120/61 01/15/18 15:39 Pulse Ox 96 01/15/18 15:39 Intake & Output 01/15/18 01/15/18 01/16/18 06:59 18:59 06:59 Intake Total 1440 Output Total 400 Balance -400 1440 Weight 55.7 kg Intake: Oral 1440 Output: Urine 400 Other: Voiding Method Bedside Commode Bedside Commode # Voids 3 2 # Bowel Movements 1 0 - Exam General appearance: alert, in distress Head exam: Present: atraumatic Eye exam: Present: normal appearance, PERRL ENT exam: Present: normal oropharynx Neck exam: Present: normal inspection Respiratory exam: Present: respiratory distress, decreased breath sounds Cardiovascular Exam: Present: regular rate, normal rhythm GI/Abdominal exam: Present: soft. Absent: tenderness Extremities exam: Present: normal inspection Neurological exam: Present: alert Psychiatric exam: Present: anxious Skin exam: Present: normal color - Labs CBC & Chem 7: 01/15/18 06:09 01/15/18 06:09 Labs: Abnormal Lab Results - Last 24 Hours (Table) 01/14/18 01/15/18 01/15/18 Range/Units 20:44 06:09 06:09 WBC 13.4 H (3.8-10.6) k/uL RBC 3.07 L (3.80-5.40) m/uL Hgb 8.4 L (11.4-16.0) gm/dL Hct 26.7 L (34.0-46.0) % RDW 20.5 H (11.5-15.5) % Plt Count 581 H (150-450) k/uL Neutrophils # 11.3 H (1.3-7.7) k/uL Potassium 5.7 H (3.5-5.1) mmol/L BUN 39 H (7-17) mg/dL Creatinine 1.40 H (0.52-1.04) mg/dL POC Glucose (mg/dL) 114 H (75-99) mg/dL 01/15/18 01/15/18 01/15/18 Range/Units 06:13 11:46 16:40 WBC (3.8-10.6) k/uL RBC (3.80-5.40) m/uL Hgb (11.4-16.0) gm/dL Hct (34.0-46.0) % RDW (11.5-15.5) % Plt Count (150-450) k/uL Neutrophils # (1.3-7.7) k/uL Potassium (3.5-5.1) mmol/L BUN (7-17) mg/dL Creatinine (0.52-1.04) mg/dL POC Glucose (mg/dL) 125 H 139 H 153 H (75-99) mg/dL Microbiology - Last 24 Hours (Table) 01/11/18 13:15 Blood Culture - Preliminary Blood No Growth after 96 hours Assessment and Plan Assessment: Sepsis associated right upper lobe pneumonia him a leukocytosis improving hemoglobin remained stable platelet count is improving as well Right upper lobe slowly enlarging cavitary mass with a differential diagnosis of neoplastic processes versus associated with rheumatoid lung disease versus pulmonary fibrosis, infected bulla Pulmonary fibrosis Severe and extensive bullous lung disease Pulmonary hypertension 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 Generalized weakness medical debility cachexia and weight loss GERD, dyslipidemia, degenerative joint disease osteoarthritis, advanced rheumatoid arthritis Plan: Gentle rehydration IV steroids Broad-spectrum antibiotics Computed tomography scan of the chest reviewed patient is at very high risk of complication associated with either of transbronchial and transthoracic with not only pneumothorax but also bleeding complication, these issues to be discussed further again with the family Further recommendations pending plan of care as per clinical response of the patient Time with Patient: Greater than 30
[2018-01-15 20:57] LABS: Glucose,Whole Blood 141 mg/dL (75-99)
[2018-01-15] MEDS: PRAVASTATIN SODIUM 40 MG TAB PO SCH (21:01)
[2018-01-15] MEDS: ASPIRIN 81 MG PO SCH (21:01)
[2018-01-15] MEDS: ALPRAZolam 0.25 MG TAB PO PRN (21:54)
--- NOTE | 2018-01-15 22:02 | P.CONS ---
History of Present Illness - Reason for Consult Consult date: 01/15/18 - Chief Complaint Shortness of breath - History of Present Illness 82-year-old female presents to [facility] emergency center with several day history of increasing shortness of breath associated with cough and progressive weakness. The patient has a long-standing history of underlying emphysema with right upper lobe cavitary lesion. At the time of her presentation the patient had evidence of respiratory failure and was supported with BiPAP and is now had improvement. Patient relates she's feeling somewhat better is coming to hospital receiving antibiotics and steroids and respiratory treatments. There is contemplation of transition to rehab to improve her strength and to try to have her remain independent. Infectious diseases consultation requested regarding the right upper lobe lesion. The patient was seen in consult every 2 years ago which point in time she had undergone bronchoscopy for the cavitary right upper lobe lesion. Bacterial cultures, mycobacterial cultures and fungal cultures were all negative initially. Also negative for pneumocystis. Fungal culture and it's final reading showed evidence of some penicillium and the patient was evaluated at that time. It is stated in the past penicillium is a laboratory contamination and does not cause pulmonary infections and persons not from [place]. She received no treatment and has been stable except for intermittent exacerbations of her COPD in the last 2 years. She is feeling somewhat better this evening and is on her baseline 3 L of nasal cannula. Review of Systems HEENT:Denies headache or acute visual change. Denies sinus or mouth discomforts. Denies neck stiffness or pain. Denies significant oral cavity pain. Denies difficulty on swallowing. Lungs: Chronic shortness of breath with sputum production but no hemoptysis Cardiovascular: Denies significant chest pain, chest wall pain, Or syncope but has dyspnea on exertion but no orthopnea Gastrointestinal:Denies nausea, vomiting, diarrhea, constipation, hematemesis, melena, hematochezia. No no significant change of bowel habit noticed. Musculoskeletal: denies significant myalgias or arthralgias. No new joint swelling. Denies new back pain. Skin: Denies new rash or lesions. No new ulcers or wounds are related.. Neuro: Denies headache or visual change. Denies any new onset weakness or difficulty with ambulation. Denies falls or seizures. Psychiatric:Denies anxiety or depression. Endocrine: ongoing worsening fatigue with chronic weight loss. Past Medical History Past Medical History: COPD, GERD/Reflux, Hyperlipidemia, Osteoarthritis (OA), Pneumonia, Renal Disease, Rheumatoid Arthritis (RA), Skin Disorder Additional Past Medical History / Comment(s): Chronic hypoxic respiratory failure, interstitial lung disease, oxygen 3L at all times , chronic kidney disease stage II, recent UTI, hemorrhoids, hx psoriasis, osteoporosis, sinus problems, pulmonary fibrosis History of Any Multi-Drug Resistant Organisms: MRSA Year Discovered:: 2010 MDRO Source:: lungs Past Surgical History: Tubal Ligation Additional Past Surgical History / Comment(s): EGD/colonoscopy, uterine fibroidectomy during which urethra was removed and reconstructed, bilateral cataract removal. Past Anesthesia/Blood Transfusion Reactions: No Reported Reaction Past Psychological History: Anxiety Additional Psychological History / Comment(s): Pt resides with spouse and other family members. She is independent. She has home O2 and a nebulizer. Pet dog lives in the home. Patient's 2 sons and one grandchild also lives with them. No history of international travel any time in her life. No experience. 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 Has never traveled outside of the [place] region. Smoking Status: Former smoker Past Alcohol Use History: None Reported Additional Past Alcohol Use History / Comment(s): Pt states she started smoking at age 16 yrs (195) and quit about 1991 Past Drug Use History: None Reported - Past Family History Mother Family Medical History: Unable to Obtain Additional Family Medical History / Comment(s): Pt does not recall mother's medical hx. She states she lived into her late 80's maybe even to age 90yrs. Father Family Medical History: Cancer Additional Family Medical History / Comment(s): . Medications and Allergies Home Medications and Allergies Comment(s): Current Medications Albuterol/Ipratropium (Duoneb 0.5 Mg-3 Mg/3 Ml Soln) 3 ml INHALATION RT-QID [facility] Last Admin: 01/15/18 19:19 Dose: 3 ml Albuterol/Ipratropium (Duoneb 0.5 Mg-3 Mg/3 Ml Soln) 3 ml INHALATION RT-Q4H PRN PRN Reason: shortness of breath Alprazolam (Xanax) 0.25 mg PO TID PRN PRN Reason: Anxiety Last Admin: 01/15/18 21:54 Dose: 0.25 mg Aspirin (Aspirin) 81 mg PO [facility] Last Admin: 01/15/18 21:01 Dose: 81 mg Azithromycin (Zithromax) 500 mg PO DAILY [facility] Last Admin: 01/15/18 07:52 Dose: 500 mg Budesonide (Pulmicort) 0.5 mg INHALATION RT-BID [facility] Last Admin: 01/15/18 19:19 Dose: 0.5 mg Carbamazepine (Tegretol Xr) 100 mg PO Q12H [facility] Last Admin: 01/15/18 21:02 Dose: 100 mg Cholecalciferol (Vitamin D3) 1,000 unit PO DAILY@1200 [facility] Last Admin: 01/15/18 12:02 Dose: 1,000 unit Famotidine (Pepcid) 20 mg PO DAILY [facility] Last Admin: 01/15/18 07:53 Dose: 20 mg Fluticasone Propionate (Flonase Nasal [place]) 2 spray EA NOSTRIL DAILY [facility] Last Admin: 01/15/18 07:52 Dose: 2 spray Folic Acid (Folic Acid) 1 mg PO DAILY@1200 [facility] Last Admin: 01/15/18 12:02 Dose: 1 mg Heparin Sodium (Porcine) (Heparin) 5,000 unit SQ Q12HR [facility] Last Admin: 01/15/18 21:02 Dose: 5,000 unit Insulin Aspart (Novolog) 0 unit SQ [facility] PRN Reason: Protocol Last Admin: 01/15/18 21:02 Dose: 1 unit Meloxicam (Mobic) 15 mg PO DAILY [facility] Last Admin: 01/15/18 10:30 Dose: 15 mg Methotrexate (Methotrexate) 20 mg PO FR [facility] Methylprednisolone Sodium Succinate (Solu-Medrol) 40 mg IV Q12HR [facility] Last Admin: 01/15/18 21:02 Dose: 40 mg Metoprolol Tartrate (Lopressor) 25 mg PO BID [facility] Last Admin: 01/15/18 21:02 Dose: 25 mg Miscellaneous Information (Pneumonia Protocol Utilized) 1 each PO ONCE PRN PRN Reason: Per Protocol Multivitamins (Theragran) 1 each PO DAILY@1200 [facility] Last Admin: 01/15/18 12:25 Dose: 1 each Pantoprazole Sodium (Protonix) 40 mg PO AC-BRKFST [facility] Last Admin: 01/15/18 06:28 Dose: 40 mg Pravastatin Sodium (Pravachol) 40 mg PO [facility] Last Admin: 01/15/18 21:01 Dose: 40 mg Psyllium Hydrophilic Mucilloid (Metamucil) 6 gm PO DAILY [facility] Last Admin: 01/15/18 07:50 Dose: Not Given Home Medications Medication Instructions Recorded Confirmed Type Alendronate Sodium 70 mg PO Q7D 06/27/16 01/11/18 History Famotidine [Pepcid] 20 mg PO BID 06/27/16 01/11/18 History Meloxicam 15 mg PO DAILY 06/27/16 01/11/18 History Methotrexate Sodium [Methotrexate] 20 mg PO FR 06/27/16 01/11/18 History Metoprolol Tartrate [Lopressor] 25 mg PO BID 06/27/16 01/11/18 History Pravastatin Sodium [Pravachol] 40 mg PO HS 06/27/16 01/11/18 History Albuterol Nebulized [Ventolin 2.5 mg INHALATION RT-Q4H PRN 01/11/18 01/11/18 History Nebulized] Aspirin [Adult Low Dose Aspirin EC] 81 mg PO HS 01/11/18 01/11/18 History Budesonide [Pulmicort] 0.5 mg INHALATION RT-Q8H 01/11/18 01/11/18 History Cholecalciferol [Vitamin D3] 1,000 unit PO DAILY 01/11/18 01/11/18 History Fluticasone Nasal [place] [Flonase 2 spr EA NOSTRIL DAILY 01/11/18 01/11/18 History Nasal [place]] Folic Acid 1 mg PO DAILY 01/11/18 01/11/18 History Ipratropium Nebulized [Atrovent 0.5 mg INHALATION RT-Q6H 01/11/18 01/11/18 History Nebulized] Multivitamins, Thera [Multivitamin 1 tab PO DAILY 01/11/18 01/11/18 History (formulary)] Psyllium Husk [Metamucil] 0.4 gm PO DAILY 01/11/18 01/11/18 History carBAMazepine [TEGretol XR] 100 mg PO Q12H 01/11/18 01/11/18 History predniSONE See Taper PO DIRECTED 01/11/18 01/11/18 History Allergies Allergy/AdvReac Type Severity Reaction Status Date / Time No Known Allergies Allergy Verified 01/11/18 13:43 Physical Exam Vitals: Vital Signs Temp Pulse Pulse Resp BP Pulse Ox 01/15/18 20:00 98.3 F 98 20 128/75 96 01/15/18 19:32 77 01/15/18 19:19 75 01/15/18 15:39 96.8 F L 74 20 120/61 96 01/15/18 15:35 76 01/15/18 15:21 74 98 01/15/18 12:17 86 01/15/18 12:09 84 01/15/18 11:27 97.1 F L 78 20 133/72 94 L 01/15/18 09:10 90 01/15/18 08:58 88 01/15/18 08:00 97 F L 80 20 136/81 97 01/15/18 01:57 97.9 F 84 18 150/74 94 L 01/15/18 00:00 97.4 F L 83 17 120/51 98 Intake and Output 01/15/18 01/15/18 01/15/18 06:59 14:59 22:59 Intake Total 1440 Output Total 200 Balance -200 1440 Intake: Oral 1440 Output: Urine 200 Other: Voiding Method Bedside Commode Bedside Commode Bedside Commode # Voids 3 1 2 # Bowel Movements 1 0 Weight 55.7 kg Pleasant 82-year-old woman who is hard of hearing otherwise relates she feels better. She still has shortness of breath, and difficulty with her appetite without emesis HEENT: Anicteric conjunctiva are pink and moist nasal mucosa grossly intact without significant lesions, there is no thrush. Poorly fitting dentures with no oral lesion Neck: The neck is supple without significant lymphadenopathy or thyromegaly. Lungs: Symmetrical air entry. Coarse sounds are scattered the lung chan. Expiratory wheezes are noted. Heart: Regular rate and rhythm with an audible S1-S2, no S3 no S4. 2/6 systolic murmur left sternal border without change Abdomen: Positive bowel sounds soft and nontender without palpable masses or organomegaly. There was no guarding or rebound. Extremities: The upper extremities have excellent pulses they are symmetric, no significant petechiae or telangiectasia. No splinter hemorrhages were noted. The lower extremities are free from significant edema. The peripheral pulses were 2+ and symmetric. Neuro: Awake alert oriented to person place and time. There are no acute new gross focal sensory motor deficits. Results CBC & Chem 7: 01/15/18 06:09 01/15/18 06:09 Labs: Abnormal Lab Results - Last 24 Hours (Table) 01/15/18 01/15/18 01/15/18 Range/Units 06:09 06:09 06:13 WBC 13.4 H (3.8-10.6) k/uL RBC 3.07 L (3.80-5.40) m/uL Hgb 8.4 L (11.4-16.0) gm/dL Hct 26.7 L (34.0-46.0) % RDW 20.5 H (11.5-15.5) % Plt Count 581 H (150-450) k/uL Neutrophils # 11.3 H (1.3-7.7) k/uL Potassium 5.7 H (3.5-5.1) mmol/L BUN 39 H (7-17) mg/dL Creatinine 1.40 H (0.52-1.04) mg/dL POC Glucose (mg/dL) 125 H (75-99) mg/dL 01/15/18 01/15/18 01/15/18 Range/Units 11:46 16:40 20:56 WBC (3.8-10.6) k/uL RBC (3.80-5.40) m/uL Hgb (11.4-16.0) gm/dL Hct (34.0-46.0) % RDW (11.5-15.5) % Plt Count (150-450) k/uL Neutrophils # (1.3-7.7) k/uL Potassium (3.5-5.1) mmol/L BUN (7-17) mg/dL Creatinine (0.52-1.04) mg/dL POC Glucose (mg/dL) 139 H 153 H 141 H (75-99) mg/dL Microbiology - Last 24 Hours (Table) 01/11/18 13:15 Blood Culture - Preliminary Blood No Growth after 96 hours Laboratory Results WBC 13.4 k/uL (3.8-10.6) H 01/15/18 06:09 RBC 3.07 m/uL (3.80-5.40) L 01/15/18 06:09 Hgb 8.4 gm/dL (11.4-16.0) L 01/15/18 06:09 Hct 26.7 % (34.0-46.0) L 01/15/18 06:09 MCV 87.0 fL (80.0-100.0) 01/15/18 06:09 MCH 27.3 pg (25.0-35.0) 01/15/18 06:09 MCHC 31.4 g/dL (31.0-37.0) 01/15/18 06:09 RDW 20.5 % (11.5-15.5) H 01/15/18 06:09 Plt Count 581 k/uL (150-450) H 01/15/18 06:09 Neutrophils % 85 % 01/15/18 06:09 Lymphocytes % 10 % 01/15/18 06:09 Monocytes % 4 % 01/15/18 06:09 Eosinophils % 0 % 01/15/18 06:09 Basophils % 0 % 01/15/18 06:09 Neutrophils # 11.3 k/uL (1.3-7.7) H 01/15/18 06:09 Lymphocytes # 1.4 k/uL (1.0-4.8) 01/15/18 06:09 Monocytes # 0.6 k/uL (0-1.0) 01/15/18 06:09 Eosinophils # 0.0 k/uL (0-0.7) 01/15/18 06:09 Basophils # 0.0 k/uL (0-0.2) 01/15/18 06:09 Hypochromasia Slight 01/15/18 06:09 Anisocytosis Moderate 01/15/18 06:09 Sodium 138 mmol/L (137-145) 01/15/18 06:09 Potassium 5.7 mmol/L (3.5-5.1) H 01/15/18 06:09 Chloride 104 mmol/L (98-107) 01/15/18 06:09 Carbon Dioxide 26 mmol/L (22-30) 01/15/18 06:09 Anion Gap 8 mmol/L 01/15/18 06:09 BUN 39 mg/dL (7-17) H 01/15/18 06:09 Creatinine 1.40 mg/dL (0.52-1.04) H 01/15/18 06:09 Est GFR (CKD-EPI)AfAm 40 (>60 ml/min/1.73 sqM) 01/15/18 06:09 Est GFR (CKD-EPI)NonAf 35 (>60 ml/min/1.73 sqM) 01/15/18 06:09 Glucose 98 mg/dL (74-99) 01/15/18 06:09 POC Glucose (mg/dL) 141 mg/dL (75-99) H 01/15/18 20:56 POC Glu [employer] [facility] [place] 01/15/18 20:[address] Glu mg/dL 128 01/12/18 06:33 Hemoglobin A1c 6.1 % (4.0-6.0) H 01/12/18 06:33 Plasma Lactic Acid Fid[place] 1.8 mmol/L (0.7-2.0) 01/11/18 13:15 Calcium 9.6 mg/dL (8.4-10.2) 01/15/18 06:09 Total Bilirubin 0.2 mg/dL (0.2-1.3) 01/14/18 05:25 AST 12 U/L (14-36) L 01/14/18 05:25 ALT 23 U/L (9-52) 01/14/18 05:25 Alkaline Phosphatase 74 U/L (38-126) 01/14/18 05:25 Total Protein 5.9 g/dL (6.3-8.2) L 01/14/18 05:25 Albumin 3.1 g/dL (3.5-5.0) L 01/14/18 05:25 Urine Color Light Yellow 01/13/18 07:33 Urine Appearance Clear (Clear) 01/13/18 07:33 Urine pH 6.5 (5.0-8.0) 01/13/18 07:33 Ur Specific [place] 1.009 (1.001-1.035) 01/13/18 07:33 Urine Protein Negative (Negative) 01/13/18 07:33 Urine Glucose (UA) Negative (Negative) 01/13/18 07:33 Urine Ketones Negative (Negative) 01/13/18 07:33 Urine Blood Trace (Negative) H 01/13/18 07:33 Urine Nitrite Negative (Negative) 01/13/18 07:33 Urine Bilirubin Negative (Negative) 01/13/18 07:33 Urine Urobilinogen <2.0 mg/dL (<2.0) 01/13/18 07:33 Ur Leukocyte Esterase Trace (Negative) H 01/13/18 07:33 Urine RBC 2 /hpf (0-5) 01/13/18 07:33 Urine WBC 7 /hpf (0-5) H 01/13/18 07:33 Ur Squamous Epith Cells <1 /hpf (0-4) 01/13/18 07:33 Influenza Type A RNA Not Detected (Not Detectd) 01/11/18 14:32 Influenza Type B (PCR) Not Detected (Not Detectd) 01/11/18 14:32 Microbiology 01/11/18 13:15 Blood Blood Culture - Preliminary No Growth after 96 hours 01/13/18 07:33 Urine,Clean Catch Urine Culture - Final 01/11/18 16:20 Sputum Gram Stain - Final 01/11/18 16:20 Sputum Sputum Culture - Final Assessment and Plan (1) COPD (chronic obstructive pulmonary disease) Current Visit: Yes Status: Acute Code(s): J44.9 - CHRONIC OBSTRUCTIVE PULMONARY DISEASE, UNSPECIFIED SNOMED Code(s): 27626778 (2) Bullous emphysema Current Visit: No Status: Acute Code(s): J43.9 - EMPHYSEMA, UNSPECIFIED SNOMED Code(s): 577967529 (3) Cavitary lesion of lung Narrative/Plan: 82-year-old female who presents to Hospital with acute exacerbation of underlying COPD requiring straight treatments, increased oxygen and BiPAP at admission while she was having some respiratory failure. She's not had improvement no longer requiring BiPAP and is now down to her baseline 3 L of nasal cannula oxygen. She is at this time denying fevers chills rigors or sweats. She does feel a bit agitated which is common when she is receiving steroids for her lung disease. She is not having much sputum production and has no hemoptysis. A computed tomography scan has been performed compared to prior CT scans show evidence of the stable right upper lobe cavitary lesion. There is no notation of any abscess or fluid level within the cavity and no evidence of any extensive pneumonia is seen. Significant emphysema is again noted as is the extensive coronary calcifications. At this time the patient has evidence of an exacerbation of her COPD that is responding well to current treatments. Does not appear to have an extensive pneumonia and fortunately does not have evidence of any abscess within the bulla. We will complete her course of azithromycin for the recent exacerbation of her COPD, we'll not need to venous antibiotic therapy. As noted has had prior bronchoscopies in the past without evidence of mycobacterial infection or fungal infection. Prior cytology without without malignant cells, however biopsies performed due to her very high risk. Patient is an extremely poor candidate for lung biopsy, it is related that she'll be going out [facility] for further opinion. Current Visit: Yes Status: Acute Code(s): J98.4 - OTHER DISORDERS OF LUNG SNOMED Code(s): 888358883
[2018-01-16 05:50] LABS: Glucose,Whole Blood 115 mg/dL (75-99)
[2018-01-16 06:12] LABS: Anisocytosis Moderate; Basophils % (A) 0 %; Eosinophils % (A) 0 %; HGB 8.2 gm/dL (11.4-16.0); Hypochromasia Slight; Lymphocytes # (A) 1.8 k/uL (1.0-4.8); Lymphocytes % (A) 9 %; MCH 26.8 pg (25.0-35.0); MCHC 30.4 g/dL (31.0-37.0); MCV 88.3 fL (80.0-100.0); Mean Platelet Volume 6.8; Monocytes # (A) 0.7 k/uL (0-1.0); Monocytes % (A) 4 %; Neutrophils # (A) 16.7 k/uL (1.3-7.7); Neutrophils % (A) 86 %; Platelet Count 487 k/uL (150-450); RBC 3.05 m/uL (3.80-5.40); RDW 21.2 % (11.5-15.5); WBC 19.3 k/uL (3.8-10.6)
[2018-01-16 06:30] LABS: Potassium 4.8 mmol/L (3.5-5.1)
[2018-01-16] MEDS: INSULIN ASPART 100 UNIT/ML 1 ML 10 ML VIAL SQ SCH ×2 (06:37→11:51)
[2018-01-16] MEDS: PANTOPRAZOLE 40 MG TABLET PO SCH (06:43)
[2018-01-16] MEDS: METOPROLOL TARTRATE 25 MG TAB PO SCH (08:02)
[2018-01-16] MEDS: MELOXICAM 7.5 MG TAB PO SCH (08:02)
[2018-01-16] MEDS: PSYLLIUM HUSK 100% 6 GM PACKET PO SCH (08:02)
[2018-01-16] MEDS: AZITHROMYCIN 500 MG TAB PO SCH (08:03)
[2018-01-16] MEDS: carBAMazepine 100 MG TAB.ER.12H PO SCH (08:03)
[2018-01-16] MEDS: FAMOTIDINE 20 MG TAB PO SCH (08:03)
[2018-01-16] MEDS: methylPREDNISolone SOD SUCCI 40 MG/ML 1 ML VIAL IV SCH (08:03)
[2018-01-16] MEDS: HEPARIN SODIUM,PORCINE 5,000 UNIT/ML 1 ML VIAL SQ SCH (08:03)
[2018-01-16] MEDS: FOLIC ACID 1 MG TAB PO SCH (08:04)
[2018-01-16] MEDS: CHOLECALCIFEROL 1,000 UNIT TAB PO SCH (08:04)
[2018-01-16] MEDS: MULTIVITAMINS, THERA 1 EACH TAB PO SCH (08:04)
[2018-01-16] MEDS: FLUTICASONE 50MCG/SPRAY NASAL 16GM EA NOSTRIL SCH (08:04)
[2018-01-16 08:15] VITALS: RESP 24
[2018-01-16] MEDS: BUDESONIDE 0.5 MG/2 ML NEBU INHALATION SCH (08:24)
[2018-01-16] MEDS: IPRATROPIUM-ALBUTEROL 3 ML NEB INHALATION SCH ×3 (08:24→15:58)
[2018-01-16 10:56] VITALS: BMI 22.4
[2018-01-16 11:31] LABS: Glucose,Whole Blood 150 mg/dL (75-99)
--- NOTE | 2018-01-16 12:07 | P.DS ---
Providers Date of admission: 01/11/18 14:22 Expected date of discharge: 01/16/18 Attending physician: Carson Maher Consults: 01/11/18 14:24 Consult Physician Urgent Consulting Provider: Darin Velázquez Consult Reason/Comments: resp failure, dyspnea Do you want consulting provider notified?: Yes 01/14/18 15:31 Consult Physician Routine Consulting Provider: Rober Gilmore Consult Reason/Comments: pneumonia Do you want consulting provider notified?: Yes Primary care physician: Agustin Sheffield [facility] Course: Final Diagnoses: 1. Acute exacerbation COPD with possible acute right upper lobe pneumonia 2. Bullous lesions and bolus emphysema greater on the right, further follow-up at [facility] as per pulmonary. 3. Gastroesophageal reflux disease 4. Chronic hypoxic respiratory failure 5. Chronic kidney disease, stage II Hospital course: This is an 82-year-old female admitted with acute exacerbation COPD, right upper lobe pneumonia with multiple bullous lesions. Evaluated by both pulmonary and infectious disease. Received IV antibiotics. Conservative medical management. Cleared by all consults for discharge. Discharge antibiotics pending from ID. Significant clinical improvement. Patient is being discharged to the [facility] a large subacute rehab in a stable condition with guarded prognosis. Physical Exam:VSS, no acute distress, alert and oriented 3.CV: Muffled S1, S2, LUNGS: Bilateral bases diminished, scattered rhonchi.ABD: Soft, nontender, positive bowel sounds.NEURO: No focal deficits. The impression and plan of care has been dictated as directed. : I performed a history and examination of this patient, discussed the same with the dictator. I agree with the dictator's note ,documented as a scribe. Any additional findings or plans will be noted. Time taken: 35 minutes Patient Condition at Discharge: Stable Plan - Discharge Summary Discharge Rx Participant: Yes New Discharge Prescriptions: New Ipratropium-Albuterol Nebulize [Duoneb 0.5 mg-3 mg/3 ml Soln] 3 ml INHALATION RT-QID ampul.neb Ipratropium-Albuterol Nebulize [Duoneb 0.5 mg-3 mg/3 ml Soln] 3 ml INHALATION RT-Q4H PRN ampul.neb PRN Reason: shortness of breath Pantoprazole [Protonix] 40 mg PO AC-BRKFST tablet. predniSONE 10 mg PO DIRECTED #30 tab INSULIN LISPRO (HumaLOG) [humaLOG] 0 unit SQ ACHS #1 vial Continue Meloxicam 15 mg PO DAILY Methotrexate Sodium [Methotrexate] 20 mg PO FR Metoprolol Tartrate [Lopressor] 25 mg PO BID Alendronate Sodium 70 mg PO Q7D Pravastatin Sodium [Pravachol] 40 mg PO HS Fluticasone Nasal [place] [Flonase Nasal [place]] 2 spr EA NOSTRIL DAILY carBAMazepine [TEGretol XR] 100 mg PO Q12H Multivitamins, Thera [Multivitamin (formulary)] 1 tab PO DAILY Cholecalciferol [Vitamin D3] 1,000 unit PO DAILY Psyllium Husk [Metamucil] 0.4 gm PO DAILY Folic Acid 1 mg PO DAILY Budesonide [Pulmicort] 0.5 mg INHALATION RT-Q8H Aspirin [Adult Low Dose Aspirin EC] 81 mg PO HS Discontinued Famotidine [Pepcid] 20 mg PO BID predniSONE See Taper PO DIRECTED Ipratropium Nebulized [Atrovent Nebulized] 0.5 mg INHALATION RT-Q6H Albuterol Nebulized [Ventolin Nebulized] 2.5 mg INHALATION RT-Q4H PRN PRN Reason: Shortness Of Breath Discharge Medication List Alendronate Sodium 70 mg PO Q7D 06/27/16 [History] Meloxicam 15 mg PO DAILY 06/27/16 [History] Methotrexate Sodium [Methotrexate] 20 mg PO FR 06/27/16 [History] Metoprolol Tartrate [Lopressor] 25 mg PO BID 06/27/16 [History] Pravastatin Sodium [Pravachol] 40 mg PO HS 06/27/16 [History] Aspirin [Adult Low Dose Aspirin EC] 81 mg PO HS 01/11/18 [History] Budesonide [Pulmicort] 0.5 mg INHALATION RT-Q8H 01/11/18 [History] Cholecalciferol [Vitamin D3] 1,000 unit PO DAILY 01/11/18 [History] Fluticasone Nasal [place] [Flonase Nasal [place]] 2 spr EA NOSTRIL DAILY 01/11/18 [ History] Folic Acid 1 mg PO DAILY 01/11/18 [History] Multivitamins, Thera [Multivitamin (formulary)] 1 tab PO DAILY 01/11/18 [History ] Psyllium Husk [Metamucil] 0.4 gm PO DAILY 01/11/18 [History] carBAMazepine [TEGretol XR] 100 mg PO Q12H 01/11/18 [History] INSULIN LISPRO (HumaLOG) [humaLOG] 0 unit SQ ACHS #1 vial 01/16/18 [Rx] Ipratropium-Albuterol Nebulize [Duoneb 0.5 mg-3 mg/3 ml Soln] 3 ml INHALATION RT -Q4H PRN ampul.neb 01/16/18 [Rx] Ipratropium-Albuterol Nebulize [Duoneb 0.5 mg-3 mg/3 ml Soln] 3 ml INHALATION RT -QID ampul.neb 01/16/18 [Rx] Pantoprazole [Protonix] 40 mg PO AC-BRKFST tablet. 01/16/18 [Rx] predniSONE 10 mg PO DIRECTED #30 tab 01/16/18 [Rx] Follow up Appointment(s)/Referral(s): Agustin Sheffield DO [Primary Care Provider] - 1 Week (after dc from sub acute rehab.) Peyman Shanks MD [REFERRING] - 3 Days Darin Velázquez MD [STAFF PHYSICIAN] - 2 Weeks Activity/Diet/Wound Care/Special Instructions: ANtibx. as per ID DIET: COnsist. CARB, DYSPAsgia Level 3, CHopped CBC,BMP in 3 days Discharge Disposition: HOME WITH HOME HEALTH SERVICES
[2018-01-16 16:16] VITALS: BP 133/73; PULSE 86; TEMP 97.7
--- NOTE | 2018-01-16 17:08 | P.PN ---
Subjective Progress Note Date: 01/16/18 Principal diagnosis: Right upper lobe pneumonia, leukocytosis, sepsis, right upper lobe slowly enlarging mass, pulmonary hypertension, advanced rheumatoid arthritis 01/16/2018, patient seen and evaluated examined during the rounds care plan discussed with the primary service at length patient as well as daughter she is ambulating with assistance along with physical therapy patient has been tolerating antibiotics and breathing treatments fairly well patient likely will be placed in extended care facility for further rehabilitation and exercise as tolerated patient will be reevaluated [facility] for second opinion as per patient's family wishes, overall almost back to baseline 01/15/2018, patient seen eval reexamined she sitting upright on the bed breathing comfortably no obvious distress is present she does have intermittent cough which is associated with light yellow thick sputum production computed tomography scan of the chest which was performed reviewed and compared with the prior CAT scan large right upper lobe thick-walled cavity is present which appears to be infected bulla versus neoplasm, patient however appeared to be responding with regular therapy patient is extremely high risk for either CT- guided or transbronchial biopsy of the lung related with not only pneumothorax plus also hemothorax and bleeding complication given that patient has a significant pulmonary hypertension these issues has been discussed with the daughter at length my recommendation this point of time is to treat patient conservatively and monitor observe closely 01/14/2018, patient seen eval reexamined during the rounds clinically doing better more awake and alert breathing comfortably no obvious distress is present patient underwent a computed tomography scan of the chest which is reviewed, continue show a right upper lobe cavitary lesion, cavity is thick walled about 6 cm in size which over the period time slowly enlarging however extensive degree of bullous lung disease present doesn't surrounding makes it very complicated to do a lung biopsy either transbronchial and transthoracic in addition now patient has been found to have pulmonary hypertension not only on echocardiogram but also as it appears on the CAT scan makes with a high risk of bleeding complication as well will discuss these issues with the family I left a message to the daughter in the meantime we'll continue treatment with antibiotics and supportive care overall however prognosis poor 01/13/2018, patient seen eval examined during the rounds clinically slightly better compared to yesterday exam is still short of breath slightly confused, medications and laboratory data reviewed white cell count is slowly going up likely related to steroids renal functions remains elevated cannot do CT with dye or rather do without dye Patient is a pleasant 82-year-old female who was seen and evaluated examined on fourth floor this patient is well-known to me he has a history of right upper lobe consolidation for which multiple bronchoscopy has been done in the past they were nondiagnostic biopsies were not performed due to risk of pneumothorax and patient also has declined recently patient has been found to have significant pulmonary hypertension likely related to end-stage lung disease and severe COPD emphysema is being sent for a further evaluation today and history of [facility] as well as evaluation of right upper lobe density patient was seen last year then she lost to follow-up and was seen recently after 6 months in the office the right upper lobe mass appears to have increased in size detailed discussion for aggressive intervention like biopsies were performed but however patient declined due to risk of pneumothorax, she is now readmitted with progressive worsening of shortness breath and respiratory distress she responded well with BiPAP in the ER currently on supplemental oxygen fevers and looked slightly better Objective - Vital Signs Vital signs: Vital Signs Temp 97.7 F 01/16/18 16:13 Pulse 86 01/16/18 16:13 Resp 24 01/16/18 16:13 BP 133/73 01/16/18 16:13 Pulse Ox 94 L 01/16/18 16:13 Intake & Output 01/15/18 01/16/18 01/16/18 18:59 06:59 18:59 Intake Total 1440 10 574 Balance 1440 10 574 Weight 55.5 kg 55.5 kg Intake: IV 10 .9 10 Oral 1440 574 Other: Voiding Method Bedside Commode Bedside Commode Bedside Commode # Voids 2 1 # Bowel Movements 0 - Exam General appearance: alert, in distress Head exam: Present: atraumatic Eye exam: Present: normal appearance, PERRL ENT exam: Present: normal oropharynx Neck exam: Present: normal inspection Respiratory exam: Present: respiratory distress, decreased breath sounds Cardiovascular Exam: Present: regular rate, normal rhythm GI/Abdominal exam: Present: soft. Absent: tenderness Extremities exam: Present: normal inspection Neurological exam: Present: alert Psychiatric exam: Present: anxious Skin exam: Present: normal color - Labs CBC & Chem 7: 01/16/18 05:50 01/16/18 05:50 Labs: Abnormal Lab Results - Last 24 Hours (Table) 01/15/18 01/16/18 01/16/18 Range/Units 20:56 05:48 05:50 WBC 19.3 H (3.8-10.6) k/uL RBC 3.05 L (3.80-5.40) m/uL Hgb 8.2 L (11.4-16.0) gm/dL Hct 27.0 L (34.0-46.0) % MCHC 30.4 L (31.0-37.0) g/dL RDW 21.2 H (11.5-15.5) % Plt Count 487 H (150-450) k/uL Neutrophils # 16.7 H (1.3-7.7) k/uL Carbon Dioxide (22-30) mmol/L BUN (7-17) mg/dL Creatinine (0.52-1.04) mg/dL Glucose (74-99) mg/dL POC Glucose (mg/dL) 141 H 115 H (75-99) mg/dL 01/16/18 01/16/18 Range/Units 05:50 11:25 WBC (3.8-10.6) k/uL RBC (3.80-5.40) m/uL Hgb (11.4-16.0) gm/dL Hct (34.0-46.0) % MCHC (31.0-37.0) g/dL RDW (11.5-15.5) % Plt Count (150-450) k/uL Neutrophils # (1.3-7.7) k/uL Carbon Dioxide 32 H (22-30) mmol/L BUN 37 H (7-17) mg/dL Creatinine 1.15 H (0.52-1.04) mg/dL Glucose 104 H (74-99) mg/dL POC Glucose (mg/dL) 150 H (75-99) mg/dL Microbiology - Last 24 Hours (Table) 01/11/18 13:15 Blood Culture - Preliminary Blood No Growth after 120 hours Assessment and Plan Assessment: Sepsis associated right upper lobe pneumonia him a leukocytosis improving hemoglobin remained stable platelet count is improving as well Right upper lobe slowly enlarging cavitary mass with a differential diagnosis of neoplastic processes versus associated with rheumatoid lung disease versus pulmonary fibrosis, infected bulla Pulmonary fibrosis Severe and extensive bullous lung disease Pulmonary hypertension 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 Generalized weakness medical debility cachexia and weight loss GERD, dyslipidemia, degenerative joint disease osteoarthritis, advanced rheumatoid arthritis Plan: Gentle rehydration IV steroids Broad-spectrum antibiotics Computed tomography scan of the chest reviewed patient is at very high risk of complication associated with either of transbronchial and transthoracic with not only pneumothorax but also bleeding complication, these issues to be discussed further again with the family Further recommendations pending plan of care as per clinical response of the patient Time with Patient: Greater than 30
--- NOTE | 2018-01-16 23:10 | P.PN ---
Subjective Progress Note Date: 01/16/18 Principal diagnosis: Cavitary lung disease 82-year-old female presents to [facility] with several day history of increasing shortness of breath associated with cough and progressive weakness. The patient has a long-standing history of underlying emphysema with right upper lobe cavitary lesion. At the time of her presentation the patient had evidence of respiratory failure and was supported with BiPAP and is now had improvement. Patient relates she's feeling somewhat better is coming to hospital receiving antibiotics and steroids and respiratory treatments. There is contemplation of transition to rehab to improve her strength and to try to have her remain independent. Infectious diseases consultation requested regarding the right upper lobe lesion. The patient was seen in consult every 2 years ago which point in time she had undergone bronchoscopy for the cavitary right upper lobe lesion. Bacterial cultures, mycobacterial cultures and fungal cultures were all negative initially. Also negative for pneumocystis. Fungal culture and it's final reading showed evidence of some penicillium and the patient was evaluated at that time. It is stated in the past penicillium is a laboratory contamination and does not cause pulmonary infections and persons not from [place]. She received no treatment and has been stable except for intermittent exacerbations of her COPD in the last 2 years. She is feeling somewhat better this evening and is on her baseline 3 L of nasal cannula. 01/14/2018 reveals the patient to have further improvement. She's been ready for discharge from the facility today. Respiratory failure has resolved. Her elevated liver function tests have improved. She does have a leukocytosis but this appears to be directly related to the steroids every given for the exacerbation of her COPD. She looks forward to getting some rehab to increase her strength. Objective - Vital Signs Vital signs: Vital Signs Temp 97.7 F 01/16/18 16:13 Pulse 86 01/16/18 16:13 Resp 24 01/16/18 16:13 BP 133/73 01/16/18 16:13 Pulse Ox 94 L 01/16/18 16:13 Intake & Output 01/16/18 01/16/18 01/17/18 06:59 18:59 06:59 Intake Total 10 574 Balance 10 574 Weight 55.5 kg 55.5 kg Intake: IV 10 .9 10 Oral 574 Other: Voiding Method Bedside Commode Bedside Commode # Voids 1 - Exam Pleasant 82-year-old woman who is hard of hearing otherwise relates she feels better. She still has shortness of breath, and difficulty with her appetite without emesis HEENT: Anicteric conjunctiva are pink and moist nasal mucosa grossly intact without significant lesions, there is no thrush. Poorly fitting dentures with no oral lesion Neck: The neck is supple without significant lymphadenopathy or thyromegaly. Lungs: Symmetrical air entry. Coarse sounds are scattered the lung chan. Expiratory wheezes are noted. Heart: Regular rate and rhythm with an audible S1-S2, no S3 no S4. 2/6 systolic murmur left sternal border without change Abdomen: Positive bowel sounds soft and nontender without palpable masses or organomegaly. There was no guarding or rebound. Extremities: The upper extremities have excellent pulses they are symmetric, no significant petechiae or telangiectasia. No splinter hemorrhages were noted. The lower extremities are free from significant edema. The peripheral pulses were 2+ and symmetric. Neuro: Awake alert oriented to person place and time. There are no acute new gross focal sensory motor deficits. - Labs CBC & Chem 7: 01/16/18 05:50 01/16/18 05:50 Labs: Abnormal Lab Results - Last 24 Hours (Table) 01/16/18 01/16/18 01/16/18 Range/Units 05:48 05:50 05:50 WBC 19.3 H (3.8-10.6) k/uL RBC 3.05 L (3.80-5.40) m/uL Hgb 8.2 L (11.4-16.0) gm/dL Hct 27.0 L (34.0-46.0) % MCHC 30.4 L (31.0-37.0) g/dL RDW 21.2 H (11.5-15.5) % Plt Count 487 H (150-450) k/uL Neutrophils # 16.7 H (1.3-7.7) k/uL Carbon Dioxide 32 H (22-30) mmol/L BUN 37 H (7-17) mg/dL Creatinine 1.15 H (0.52-1.04) mg/dL Glucose 104 H (74-99) mg/dL POC Glucose (mg/dL) 115 H (75-99) mg/dL 01/16/18 Range/Units 11:25 WBC (3.8-10.6) k/uL RBC (3.80-5.40) m/uL Hgb (11.4-16.0) gm/dL Hct (34.0-46.0) % MCHC (31.0-37.0) g/dL RDW (11.5-15.5) % Plt Count (150-450) k/uL Neutrophils # (1.3-7.7) k/uL Carbon Dioxide (22-30) mmol/L BUN (7-17) mg/dL Creatinine (0.52-1.04) mg/dL Glucose (74-99) mg/dL POC Glucose (mg/dL) 150 H (75-99) mg/dL Microbiology - Last 24 Hours (Table) 01/11/18 13:15 Blood Culture - Preliminary Blood No Growth after 120 hours Laboratory Results WBC 19.3 k/uL (3.8-10.6) H 01/16/18 05:50 RBC 3.05 m/uL (3.80-5.40) L 01/16/18 05:50 Hgb 8.2 gm/dL (11.4-16.0) L 01/16/18 05:50 Hct 27.0 % (34.0-46.0) L 01/16/18 05:50 MCV 88.3 fL (80.0-100.0) 01/16/18 05:50 MCH 26.8 pg (25.0-35.0) 01/16/18 05:50 MCHC 30.4 g/dL (31.0-37.0) L 01/16/18 05:50 RDW 21.2 % (11.5-15.5) H 01/16/18 05:50 Plt Count 487 k/uL (150-450) H 01/16/18 05:50 Neutrophils % 86 % 01/16/18 05:50 Lymphocytes % 9 % 01/16/18 05:50 Monocytes % 4 % 01/16/18 05:50 Eosinophils % 0 % 01/16/18 05:50 Basophils % 0 % 01/16/18 05:50 Neutrophils # 16.7 k/uL (1.3-7.7) H 01/16/18 05:50 Lymphocytes # 1.8 k/uL (1.0-4.8) 01/16/18 05:50 Monocytes # 0.7 k/uL (0-1.0) 01/16/18 05:50 Eosinophils # 0.0 k/uL (0-0.7) 01/16/18 05:50 Basophils # 0.0 k/uL (0-0.2) 01/16/18 05:50 Hypochromasia Slight 01/16/18 05:50 Anisocytosis Moderate 01/16/18 05:50 Sodium 140 mmol/L (137-145) 01/16/18 05:50 Potassium 4.8 mmol/L (3.5-5.1) 01/16/18 05:50 Chloride 101 mmol/L (98-107) 01/16/18 05:50 Carbon Dioxide 32 mmol/L (22-30) H 01/16/18 05:50 Anion Gap 7 mmol/L 01/16/18 05:50 BUN 37 mg/dL (7-17) H 01/16/18 05:50 Creatinine 1.15 mg/dL (0.52-1.04) H 01/16/18 05:50 Est GFR (CKD-EPI)AfAm 51 (>60 ml/min/1.73 sqM) 01/16/18 05:50 Est GFR (CKD-EPI)NonAf 44 (>60 ml/min/1.73 sqM) 01/16/18 05:50 Glucose 104 mg/dL (74-99) H 01/16/18 05:50 POC Glucose (mg/dL) 150 mg/dL (75-99) H 01/16/18 11:25 POC Glu [employer] Librarian ID Dee Sotelo 01/16/18 11:[address] Glu mg/dL 128 01/12/18 06:33 Hemoglobin A1c 6.1 % (4.0-6.0) H 01/12/18 06:33 Plasma Lactic Acid Fidencio 1.8 mmol/L (0.7-2.0) 01/11/18 13:15 Calcium 9.0 mg/dL (8.4-10.2) 01/16/18 05:50 Total Bilirubin 0.2 mg/dL (0.2-1.3) 01/14/18 05:25 AST 12 U/L (14-36) L 01/14/18 05:25 ALT 23 U/L (9-52) 01/14/18 05:25 Alkaline Phosphatase 74 U/L (38-126) 01/14/18 05:25 Total Protein 5.9 g/dL (6.3-8.2) L 01/14/18 05:25 Albumin 3.1 g/dL (3.5-5.0) L 01/14/18 05:25 Urine Color Light Yellow 01/13/18 07:33 Urine Appearance Clear (Clear) 01/13/18 07:33 Urine pH 6.5 (5.0-8.0) 01/13/18 07:33 Ur Specific Ash 1.009 (1.001-1.035) 01/13/18 07:33 Urine Protein Negative (Negative) 01/13/18 07:33 Urine Glucose (UA) Negative (Negative) 01/13/18 07:33 Urine Ketones Negative (Negative) 01/13/18 07:33 Urine Blood Trace (Negative) H 01/13/18 07:33 Urine Nitrite Negative (Negative) 01/13/18 07:33 Urine Bilirubin Negative (Negative) 01/13/18 07:33 Urine Urobilinogen <2.0 mg/dL (<2.0) 01/13/18 07:33 Ur Leukocyte Esterase Trace (Negative) H 01/13/18 07:33 Urine RBC 2 /hpf (0-5) 01/13/18 07:33 Urine WBC 7 /hpf (0-5) H 01/13/18 07:33 Ur Squamous Epith Cells <1 /hpf (0-4) 01/13/18 07:33 Influenza Type A RNA Not Detected (Not Detectd) 01/11/18 14:32 Influenza Type B (PCR) Not Detected (Not Detectd) 01/11/18 14:32 Microbiology 01/11/18 13:15 Blood Blood Culture - Preliminary No Growth after 120 hours 01/13/18 07:33 Urine,Clean Catch Urine Culture - Final 01/11/18 16:20 Sputum Gram Stain - Final 01/11/18 16:20 Sputum Sputum Culture - Final Assessment and Plan (1) COPD (chronic obstructive pulmonary disease) Status: Acute Code(s): J44.9 - CHRONIC OBSTRUCTIVE PULMONARY DISEASE, UNSPECIFIED SNOMED Code(s): 79780064 (2) Bullous emphysema Status: Acute Code(s): J43.9 - EMPHYSEMA, UNSPECIFIED SNOMED Code(s): 108680311 (3) Cavitary lesion of lung Narrative/Plan: 82-year-old female who presents to Hospital with acute exacerbation of underlying COPD requiring straight treatments, increased oxygen and BiPAP at admission while she was having some respiratory failure. She's not had improvement no longer requiring BiPAP and is now down to her baseline 3 L of nasal cannula oxygen. She is at this time denying fevers chills rigors or sweats. She does feel a bit agitated which is common when she is receiving steroids for her lung disease. She is not having much sputum production and has no hemoptysis. A computed tomography scan has been performed compared to prior CT scans show evidence of the stable right upper lobe cavitary lesion. There is no notation of any abscess or fluid level within the cavity and no evidence of any extensive pneumonia is seen. Significant emphysema is again noted as is the extensive coronary calcifications. At this time the patient has evidence of an exacerbation of her COPD that is responding well to current treatments. Does not appear to have an extensive pneumonia and fortunately does not have evidence of any abscess within the bulla. We will complete her course of azithromycin for the recent exacerbation of her COPD, we'll not need to venous antibiotic therapy. As noted has had prior bronchoscopies in the past without evidence of mycobacterial infection or fungal infection. Prior cytology without without malignant cells, however biopsies performed due to her very high risk. Patient is an extremely poor candidate for lung biopsy, it is related that she'll be going out [facility] for further opinion. 01/16/2018 reveals the patient have further improvement. Her exacerbation of COPD he has considerably improved. She is back down to her baseline oxygen supplementation of 3 L. Her white blood cell count is elevated but appears directly related to the steroids are being given for the exacerbation of her COPD. She had elevated liver function tests that are improving and likely referred from the recent infectious process. She will complete the course of his azithromycin for the exacerbation of her COPD along with her many respiratory treatments. The patient will be evaluated at the [facility] for the possibility of further interventions to the cavitary lesion. Status: Acute Code(s): J98.4 - OTHER DISORDERS OF LUNG SNOMED Code(s): 268230272
[2018-01-17] MEDS ORDERED: METHOTREXATE SODIUM 2.5 MG TAB PO SCH (09:00)
--- NOTE | 2018-01-19 20:58 | CDI ---
Last Revision, September 2017 Documentation Clarification Form Date: 01/19/18 From: Inge Silva Phone: If you have a question regarding this query, please contact Florence Pearl at [phone] between 8am and 5pm. Admit Date: 01/11/2018 2:22:00 PM Patient Name: Karen Jordan Visit Number: [id number] Discharge Date: ATTENTION: The Clinical Documentation Specialists (CDI) and [facility] Coding Staff appreciate your assistance in clarifying documentation. Please respond to the clarification below the line at the bottom and electronically sign. The CDI & [facility] Coding staff will review the response and follow-up if needed. Please note: Queries are made part of the Legal Health Record. If you have any questions, please contact the author of this message via ITS. Dr. Carson Maher Sepsis is documented in ED, Dr. Webster's consult note and in Dr. Webster's progress notes but is not documented in your notes or the discharge summary. History/Risk Factors: Patient was admitted with acute right upper lobe pneumonia. Clinical Indicators: leukocytosis, tachypnea, tachycardia. WBC/Left Shift: 14.0/10.3 Lactic acid: 1.8 Blood cultures: No growth. Vitals signs on admission: T. 99.2 down to 96.9 on day of admission, P. 112, R. 28, BP 133/62 Treatment: Antibiotics: Azythromycin IV, Rocephin IV In your professional opinion, please clarify if Sepsis was Ruled In or Ruled Out : Other, please specify Unable to determine Possible sepsis MTDD
== END 2018-01-16 17:21 | DRG 871 ==
LOC: EC 12:54 → 6SEL 14:22
PROVIDERS: ADMIT Hospitalist; ATTEND Hospitalist
DX: A41.50 Gram-negative sepsis, unspecified (principal); J15.6 Pneumonia due to other Gram-negative bacteria; J96.21 Acute and chronic respiratory failure with hypoxia; J84.9 Interstitial pulmonary disease, unspecified; R64 Cachexia; I27.20 Pulmonary hypertension, unspecified; J84.10 Pulmonary fibrosis, unspecified; M06.9 Rheumatoid arthritis, unspecified; E78.5 Hyperlipidemia, unspecified; J43.9 Emphysema, unspecified; K21.9 Gastro-esophageal reflux disease without esophagitis; M19.90 Unspecified osteoarthritis, unspecified site; M81.0 Age-related osteoporosis without current pathological fracture; N18.2 Chronic kidney disease, stage 2 (mild); K64.9 Unspecified hemorrhoids; L40.9 Psoriasis, unspecified; F41.9 Anxiety disorder, unspecified; R26.9 Unspecified abnormalities of gait and mobility; T38.0X5A Adverse effect of glucocorticoids and synthetic analogues, initial encounter; D72.829 Elevated white blood cell count, unspecified; Z79.82 Long term (current) use of aspirin; Z79.899 Other long term (current) drug therapy; Z87.01 Personal history of pneumonia (recurrent); Z87.891 Personal history of nicotine dependence; Z86.14 Personal history of Methicillin resistant Staphylococcus aureus infection; Z66 Do not resuscitate
CPT/HCPCS: 36415; 71045; 71046; 71250; 80048; 80053; 81001; 83036; 83605; 85025; 87040; 87070; 87086; 87205; 87502; 94640; 94660; 94760; 96361; 96365; 96366; 96375; 96376; 99291

== ENCOUNTER 2018-01-24 23:52 | Inpatient (IN) | payer MEDICARE ==
[2018-01-25] MEDS ORDERED: SODIUM CHLORIDE 0.9% 500 ML IV STA
[2018-01-25] MEDS ORDERED: ALBUTEROL NEBULIZED 2.5 MG/3 ML INHALATION STA
[2018-01-25] MEDS ORDERED: methylPREDNISolone SOD SUCCI 125 MG/2 ML VIAL IV STA
[2018-01-25] MEDS ORDERED: IPRATROPIUM 0.5 MG/2.5 ML NEBU INHALATION STA
--- NOTE | 2018-01-25 00:07 | ED ---
General Adult HPI - General Chief complaint: Shortness of Breath Stated complaint: SOB Time Seen by Provider: 01/25/18 00:00 Source: patient, EMS, RN notes reviewed, old records reviewed Mode of arrival: EMS Limitations: no limitations - History of Present Illness Initial comments: 82-year-old female with history of COPD presents with worsening cough and dyspnea. Patient was admitted to the hospital approximately 2 weeks ago with COPD and pneumonia. She was discharged to the detention, over the past several days her breathing has worsened as well as the recurrence of fever. She is also complaining of a sore throat. No anterior chest pain. Cough is nonproductive. No abdominal pain nausea or vomiting. Patient denies lower extremity swelling or calf tenderness. - Related Data Home Medications Medication Instructions Recorded Confirmed Alendronate Sodium 70 mg PO Q7D 06/27/16 01/11/18 Meloxicam 15 mg PO DAILY 06/27/16 01/11/18 Methotrexate Sodium [Methotrexate] 20 mg PO FR 06/27/16 01/11/18 Metoprolol Tartrate [Lopressor] 25 mg PO BID 06/27/16 01/11/18 Pravastatin Sodium [Pravachol] 40 mg PO HS 06/27/16 01/11/18 Aspirin [Adult Low Dose Aspirin EC] 81 mg PO HS 01/11/18 01/11/18 Budesonide [Pulmicort] 0.5 mg INHALATION RT-Q8H 01/11/18 01/11/18 Cholecalciferol [Vitamin D3] 1,000 unit PO DAILY 01/11/18 01/11/18 Fluticasone Nasal [place] [Flonase 2 spr EA NOSTRIL DAILY 01/11/18 01/11/18 Nasal [place]] Folic Acid 1 mg PO DAILY 01/11/18 01/11/18 Multivitamins, Thera [Multivitamin 1 tab PO DAILY 01/11/18 01/11/18 (formulary)] Psyllium Husk [Metamucil] 0.4 gm PO DAILY 01/11/18 01/11/18 carBAMazepine [TEGretol XR] 100 mg PO Q12H 01/11/18 01/11/18 Previous Rx's Medication Instructions Recorded INSULIN LISPRO (HumaLOG) [humaLOG] 0 unit SQ ACHS #1 vial 01/16/18 Ipratropium-Albuterol Nebulize 3 ml INHALATION RT-Q4H PRN 01/16/18 [Duoneb 0.5 mg-3 mg/3 ml Soln] ampul.neb Ipratropium-Albuterol Nebulize 3 ml INHALATION RT-QID ampul.neb 01/16/18 [Duoneb 0.5 mg-3 mg/3 ml Soln] Pantoprazole [Protonix] 40 mg PO AC-BRKFST tablet. 01/16/18 predniSONE 10 mg PO DIRECTED #30 tab 01/16/18 Allergies Allergy/AdvReac Type Severity Reaction Status Date / Time No Known Allergies Allergy Verified 01/25/18 00:00 Review of Systems ROS Statement: Those systems with pertinent positive or pertinent negative responses have been documented in the HPI. ROS Other: All systems not noted in ROS Statement are negative. Past Medical History Past Medical History: COPD, GERD/Reflux, Hyperlipidemia, Osteoarthritis (OA), Pneumonia, Renal Disease, Rheumatoid Arthritis (RA), Skin Disorder Additional Past Medical History / Comment(s): Chronic hypoxic respiratory failure, interstitial lung disease, oxygen 3L at all times , chronic kidney disease stage II, recent UTI, hemorrhoids, hx psoriasis, osteoporosis, sinus problems, pulmonary fibrosis History of Any Multi-Drug Resistant Organisms: MRSA Date of last positivie culture/infection: 2010 MDRO Source:: lungs Past Surgical History: Tubal Ligation Additional Past Surgical History / Comment(s): EGD/colonoscopy, uterine fibroidectomy during which urethra was removed and reconstructed, bilateral cataract removal. Past Anesthesia/Blood Transfusion Reactions: No Reported Reaction Past Psychological History: Anxiety Smoking Status: Former smoker Past Alcohol Use History: None Reported Past Drug Use History: None Reported - Past Family History Mother Family Medical History: Unable to Obtain Additional Family Medical History / Comment(s): Pt does not recall mother's medical hx. She states she lived into her late 80's maybe even to age 90yrs. Father Family Medical History: Cancer Additional Family Medical History / Comment(s): . General Exam Limitations: no limitations General appearance: alert, in distress Head exam: Present: atraumatic, normocephalic Eye exam: Present: normal appearance, PERRL, EOMI ENT exam: Present: mucous membranes dry Neck exam: Present: normal inspection. Absent: tenderness, meningismus Respiratory exam: Present: respiratory distress, wheezes, rhonchi, decreased breath sounds, prolonged expiratory Cardiovascular Exam: Present: normal rhythm, tachycardia GI/Abdominal exam: Present: soft. Absent: distended, tenderness, guarding Extremities exam: Present: normal inspection, normal capillary refill. Absent: pedal edema, calf tenderness Back exam: Present: normal inspection. Absent: full ROM Neurological exam: Present: alert, oriented X3, CN II-XII intact. Absent: motor sensory deficit Psychiatric exam: Present: normal affect, normal mood Skin exam: Present: warm, dry, intact. Absent: cyanosis, diaphoretic Course Vital Signs 01/24/18 01/25/18 01/25/18 23:54 00:07 00:22 Temperature 101.7 F H Pulse Rate 114 H 107 H 108 H Respiratory 38 H Rate Blood Pressure 166/72 O2 Sat by Pulse 88 L Oximetry 01/25/18 00:40 Temperature Pulse Rate 114 H Respiratory 32 H Rate Blood Pressure 132/62 O2 Sat by Pulse 97 Oximetry - Reevaluation(s) Reevaluation #1: 01/25/18 00:06 On initial evaluation the patient is febrile, tachycardic, tachypneic and hypoxic. She will be given albuterol, Atrovent, steroids. Reevaluation #2: 01/25/18 00:31 Case discussed with patient's family, they state over the past several days she has had worsening difficulty breathing cough, she was diagnosed with pneumonia 3 or 4 days ago. She normally wears 2 L of oxygen by nasal cannula. 01/25/18 00:32 EKG Findings - EKG Comments: EKG Findings:: EKG, sinus tachycardia, right atrial enlargement, no ST segment elevation or depression, rate of 109, MI interval 148, QRS duration 92 QTC 433 Medical Decision Making - Medical Decision Making 82-year-old female history of COPD presents with fever, tachycardia, tachypnea and hypoxia. Patient has diffuse wheezing with accessory muscle use, and scatter rhonchi. Laboratory studies reveal elevated white blood cell count 17.4, although she has had elevation on recent testing. Hemoglobin stable 8.5, lactic acid normal. Influenza is negative. Electrolytes within normal limits. Troponin mildly elevated at 0.047 this is likely secondary to hypoxia and demand ischemia rather than type I OH. This level will be trended. Chest x-ray shows large right upper and right lower lobe pneumonia, no pulmonary edema. Patient will be admitted for IV antibiotics, and COPD treatment. She is given vancomycin, cefepime, and a azithromycin in the emergency department. Blood cultures are pending. - Lab Data Result diagrams: 01/25/18 00:00 01/25/18 00:00 Lab Results 01/25/18 01/25/18 01/25/18 Range/Units 00:00 00:00 00:00 WBC 17.4 H (3.8-10.6) k/uL RBC 3.04 L (3.80-5.40) m/uL Hgb 8.5 L (11.4-16.0) gm/dL Hct 27.0 L (34.0-46.0) % MCV 88.9 (80.0-100.0) fL MCH 27.8 (25.0-35.0) pg MCHC 31.3 (31.0-37.0) g/dL RDW 21.5 H (11.5-15.5) % Plt Count 527 H (150-450) k/uL Neutrophils % 85 % Lymphocytes % 7 % Monocytes % 6 % Eosinophils % 1 % Basophils % 0 % Neutrophils # 14.7 H (1.3-7.7) k/uL Lymphocytes # 1.2 (1.0-4.8) k/uL Monocytes # 1.1 H (0-1.0) k/uL Eosinophils # 0.1 (0-0.7) k/uL Basophils # 0.0 (0-0.2) k/uL Hypochromasia Slight Anisocytosis Moderate PT (9.0-12.0) sec INR (<1.2) APTT (22.0-30.0) sec Sodium 136 L (137-145) mmol/L Potassium 5.4 H (3.5-5.1) mmol/L Chloride 101 (98-107) mmol/L Carbon Dioxide 23 (22-30) mmol/L Anion Gap 12 mmol/L BUN 24 H (7-17) mg/dL Creatinine 1.20 H (0.52-1.04) mg/dL Est GFR (CKD-EPI)AfAm 48 (>60 ml/min/1.73 sqM) Est GFR (CKD-EPI)NonAf 42 (>60 ml/min/1.73 sqM) Glucose 110 H (74-99) mg/dL Plasma Lactic Acid Fidencio (0.7-2.0) mmol/L Calcium 9.1 (8.4-10.2) mg/dL Magnesium 2.1 (1.6-2.3) mg/dL Total Bilirubin 0.3 (0.2-1.3) mg/dL AST 19 (14-36) U/L ALT 20 (9-52) U/L Alkaline Phosphatase 81 (38-126) U/L Total Creatine Kinase 30 (30-135) U/L CK-MB (CK-2) 1.6 (0.0-2.4) ng/mL CK-MB (CK-2) Rel Index 5.3 Troponin I 0.047 H* (0.000-0.034) ng/mL NT-Pro-B Natriuret Pep pg/mL Total Protein 6.4 (6.3-8.2) g/dL Albumin 3.2 L (3.5-5.0) g/dL Influenza Type A RNA (Not Detectd) Influenza Type B (PCR) (Not Detectd) 01/25/18 01/25/18 01/25/18 Range/Units 00:00 00:00 00:00 WBC (3.8-10.6) k/uL RBC (3.80-5.40) m/uL Hgb (11.4-16.0) gm/dL Hct (34.0-46.0) % MCV (80.0-100.0) fL MCH (25.0-35.0) pg MCHC (31.0-37.0) g/dL RDW (11.5-15.5) % Plt Count (150-450) k/uL Neutrophils % % Lymphocytes % % Monocytes % % Eosinophils % % Basophils % % Neutrophils # (1.3-7.7) k/uL Lymphocytes # (1.0-4.8) k/uL Monocytes # (0-1.0) k/uL Eosinophils # (0-0.7) k/uL Basophils # (0-0.2) k/uL Hypochromasia Anisocytosis PT 10.5 (9.0-12.0) sec INR 1.1 (<1.2) APTT 23.9 (22.0-30.0) sec Sodium (137-145) mmol/L Potassium (3.5-5.1) mmol/L Chloride (98-107) mmol/L Carbon Dioxide (22-30) mmol/L Anion Gap mmol/L BUN (7-17) mg/dL Creatinine (0.52-1.04) mg/dL Est GFR (CKD-EPI)AfAm (>60 ml/min/1.73 sqM) Est GFR (CKD-EPI)NonAf (>60 ml/min/1.73 sqM) Glucose (74-99) mg/dL Plasma Lactic Acid Fidencio 1.8 (0.7-2.0) mmol/L Calcium (8.4-10.2) mg/dL Magnesium (1.6-2.3) mg/dL Total Bilirubin (0.2-1.3) mg/dL AST (14-36) U/L ALT (9-52) U/L Alkaline Phosphatase (38-126) U/L Total Creatine Kinase (30-135) U/L CK-MB (CK-2) (0.0-2.4) ng/mL CK-MB (CK-2) Rel Index Troponin I (0.000-0.034) ng/mL NT-Pro-B Natriuret Pep 5090 pg/mL Total Protein (6.3-8.2) g/dL Albumin (3.5-5.0) g/dL Influenza Type A RNA (Not Detectd) Influenza Type B (PCR) (Not Detectd) 01/25/18 Range/Units 00:05 WBC (3.8-10.6) k/uL RBC (3.80-5.40) m/uL Hgb (11.4-16.0) gm/dL Hct (34.0-46.0) % MCV (80.0-100.0) fL MCH (25.0-35.0) pg MCHC (31.0-37.0) g/dL RDW (11.5-15.5) % Plt Count (150-450) k/uL Neutrophils % % Lymphocytes % % Monocytes % % Eosinophils % % Basophils % % Neutrophils # (1.3-7.7) k/uL Lymphocytes # (1.0-4.8) k/uL Monocytes # (0-1.0) k/uL Eosinophils # (0-0.7) k/uL Basophils # (0-0.2) k/uL Hypochromasia Anisocytosis PT (9.0-12.0) sec INR (<1.2) APTT (22.0-30.0) sec Sodium (137-145) mmol/L Potassium (3.5-5.1) mmol/L Chloride (98-107) mmol/L Carbon Dioxide (22-30) mmol/L Anion Gap mmol/L BUN (7-17) mg/dL Creatinine (0.52-1.04) mg/dL Est GFR (CKD-EPI)AfAm (>60 ml/min/1.73 sqM) Est GFR (CKD-EPI)NonAf (>60 ml/min/1.73 sqM) Glucose (74-99) mg/dL Plasma Lactic Acid Fidencio (0.7-2.0) mmol/L Calcium (8.4-10.2) mg/dL Magnesium (1.6-2.3) mg/dL Total Bilirubin (0.2-1.3) mg/dL AST (14-36) U/L ALT (9-52) U/L Alkaline Phosphatase (38-126) U/L Total Creatine Kinase (30-135) U/L CK-MB (CK-2) (0.0-2.4) ng/mL CK-MB (CK-2) Rel Index Troponin I (0.000-0.034) ng/mL NT-Pro-B Natriuret Pep pg/mL Total Protein (6.3-8.2) g/dL Albumin (3.5-5.0) g/dL Influenza Type A RNA Not Detected (Not Detectd) Influenza Type B (PCR) Not Detected (Not Detectd) Critical Care Time Critical Care Time: Yes Total Critical Care Time: 35 Disposition Clinical Impression: Acute exacerbation of chronic obstructive airways disease, Healthcare associated bacterial pneumonia Disposition: ADMITTED IP TO THIS [facility] Condition: Serious Referrals: Agustin Sheffield DO [Primary Care Provider] - 1-2 days Decision to Admit Reason: Admit from EC Decision Date: 01/25/18 Decision Time: 00:46
[2018-01-25 00:17] LABS: Anisocytosis Moderate; Basophils % (A) 0 %; Eosinophils # (A) 0.1 k/uL (0-0.7); Eosinophils % (A) 1 %; HGB 8.5 gm/dL (11.4-16.0); Hypochromasia Slight; Lymphocytes # (A) 1.2 k/uL (1.0-4.8); Lymphocytes % (A) 7 %; MCH 27.8 pg (25.0-35.0); MCHC 31.3 g/dL (31.0-37.0); MCV 88.9 fL (80.0-100.0); Mean Platelet Volume 6.8; Monocytes # (A) 1.1 k/uL (0-1.0); Monocytes % (A) 6 %; Neutrophils # (A) 14.7 k/uL (1.3-7.7); Neutrophils % (A) 85 %; Platelet Count 527 k/uL (150-450); RBC 3.04 m/uL (3.80-5.40); RDW 21.5 % (11.5-15.5); WBC 17.4 k/uL (3.8-10.6)
[2018-01-25] MEDS ORDERED: CEFEPIME 2 GM in SODIUM CHLORIDE 0.9% 50 ML IVPB STA (00:24)
[2018-01-25] MEDS ORDERED: AZITHROMYCIN 500 MG in SODIUM CHLORIDE 0.9% 250 ML IVPB STA (00:24)
[2018-01-25] MEDS ORDERED: VANCOMYCIN IV PER PHARMACY 1 EACH MISC MISCELLANE PRN (00:24)
[2018-01-25] MEDS ORDERED: ACETAMINOPHEN TAB 500 MG TAB PO STA (00:25)
[2018-01-25 00:35] LABS: Albumin 3.2 g/dL (3.5-5.0); Calcium 9.1 mg/dL (8.4-10.2); Magnesium 2.1 mg/dL (1.6-2.3); Total Bilirubin 0.3 mg/dL (0.2-1.3); Total Protein 6.4 g/dL (6.3-8.2)
[2018-01-25 00:36] LABS: Potassium 5.4 mmol/L (3.5-5.1)
[2018-01-25 00:40] LABS: INR 1.1 (<1.2); Partial Thromboplastin Time 23.9 sec (22.0-30.0); Prothrombin Time 10.5 sec (9.0-12.0)
[2018-01-25] MEDS ORDERED: IPRATROPIUM-ALBUTEROL 3 ML NEB INHALATION PRN (00:40)
[2018-01-25] MEDS ORDERED: ALBUTEROL NEBULIZED 2.5 MG/3 ML INHALATION PRN (00:42)
[2018-01-25 00:47] LABS: Creatine Kinase MB 1.6 ng/mL (0.0-2.4)
[2018-01-25 00:48] LABS: Troponin I 0.047 ng/mL (0.000-0.034)
--- NOTE | 2018-01-25 00:49 | XR ---
EXAMINATION TYPE: XR chest 2V DATE OF EXAM: 01/25/2018 COMPARISON: 01/15/2018 HISTORY: Difficulty breathing TECHNIQUE: Frontal and lateral views of the chest are obtained. FINDINGS: There is patchy pneumonic consolidation in the right lung. This is worse in the right lowe r lobe. There is also mild infiltrate at the left lung base. There is no gross heart failure. There a re chest leads. Thoracic aorta is atheromatous. Mediastinum is deviated to the right side. IMPRESSION: There is patchy pneumonic consolidation and atelectasis in the right lung that is worse than last exam. No heart failure. Poor myofibrosis.
[2018-01-25] MEDS ORDERED: VANCOMYCIN 1,250 MG in SODIUM CHLORIDE 0.9% 250 ML IVPB ONE (02:00)
[2018-01-25 02:33] VITALS: BMI 23.8
[2018-01-25] MEDS: carBAMazepine 100 MG TAB.ER.12H PO SCH ×3 (02:35→23:27)
[2018-01-25] MEDS: methylPREDNISolone SOD SUCCI 125 MG/2 ML VIAL IV SCH ×4 (06:12→23:27)
[2018-01-25 06:13] LABS: Glucose,Whole Blood 175 mg/dL (75-99)
[2018-01-25] MEDS: INSULIN ASPART 100 UNIT/ML 1 ML 10 ML VIAL SQ SCH ×4 (06:29→21:02)
[2018-01-25] MEDS: BENZOCAINE/MENTHOL LOZENG 1 EACH LOZENGE MUCOUS MEM PRN ×2 (06:34→09:52)
[2018-01-25 07:11] LABS: Creatine Kinase MB 3.7 ng/mL (0.0-2.4); Troponin I 0.463 ng/mL (0.000-0.034)
[2018-01-25] MEDS: IPRATROPIUM-ALBUTEROL 3 ML NEB INHALATION SCH ×4 (08:06→19:13)
--- NOTE | 2018-01-25 09:47 | P.CRDCN ---
History of Present Illness Consult date: 01/25/18 Chief complaint: shortness of breath History of present illness: This is a pleasant 82-year-old female patient with a past medical history significant for COPD/chronic respiratory failure on home oxygen presented to the hospital complaining of shortness of breath. She just was discharged from the hospital a few weeks ago after she was admitted with a pneumonia/COPD exacerbation. This time she presented back to the hospital complaining of sore throat associated with fever according to her and also shortness of breath and wheezing. The patient did not have any chest pain or chest discomfort but she felt her heart was racing up. No dizziness or lightheadedness and no syncope. The EKG showed sinus rhythm with a sinus tachycardia and nonspecific changes in the lateral leads. She underwent 2 sets of cardiac enzymes came in to be slightly abnormal but the patient did not have any chest pain or discomfort. The chest x-ray showed chronic changes only. Currently the patient is hemodynamically stable. She is on aspirin, and she is on metoprolol as well. Past Medical History Past Medical History: COPD, GERD/Reflux, Hyperlipidemia, Osteoarthritis (OA), Pneumonia, Renal Disease, Rheumatoid Arthritis (RA), Skin Disorder Additional Past Medical History / Comment(s): Chronic hypoxic respiratory failure, interstitial lung disease, oxygen 3L at all times , chronic kidney disease stage II, recent UTI, hemorrhoids, hx psoriasis, osteoporosis, sinus problems, pulmonary fibrosis History of Any Multi-Drug Resistant Organisms: MRSA Date of last positivie culture/infection: 2010 MDRO Source:: lungs Past Surgical History: Tubal Ligation Additional Past Surgical History / Comment(s): EGD/colonoscopy, uterine fibroidectomy during which urethra was removed and reconstructed, bilateral cataract removal. Past Anesthesia/Blood Transfusion Reactions: No Reported Reaction Past Psychological History: Anxiety Smoking Status: Former smoker Past Alcohol Use History: None Reported Past Drug Use History: None Reported - Past Family History Mother Family Medical History: Unable to Obtain Additional Family Medical History / Comment(s): Pt does not recall mother's medical hx. She states she lived into her late 80's maybe even to age 90yrs. Father Family Medical History: Cancer Additional Family Medical History / Comment(s): . Medications and Allergies Home Medications Medication Instructions Recorded Confirmed Type Alendronate Sodium 70 mg PO Q7D 06/27/16 01/25/18 History Meloxicam 15 mg PO DAILY 06/27/16 01/25/18 History Methotrexate Sodium [Methotrexate] 20 mg PO FR 06/27/16 01/25/18 History Metoprolol Tartrate [Lopressor] 25 mg PO BID 06/27/16 01/25/18 History Pravastatin Sodium [Pravachol] 40 mg PO HS 06/27/16 01/25/18 History Aspirin [Adult Low Dose Aspirin EC] 81 mg PO HS 01/11/18 01/25/18 History Budesonide [Pulmicort] 0.5 mg INHALATION RT-Q8H 01/11/18 01/25/18 History Cholecalciferol [Vitamin D3] 1,000 unit PO DAILY 01/11/18 01/25/18 History Fluticasone Nasal [place] [Flonase 2 spr EA NOSTRIL DAILY 01/11/18 01/25/18 History Nasal [place]] Folic Acid 1 mg PO DAILY 01/11/18 01/25/18 History Multivitamins, Thera [Multivitamin 1 tab PO DAILY 01/11/18 01/25/18 History (formulary)] Psyllium Husk [Metamucil] 0.4 gm PO DAILY 01/11/18 01/25/18 History carBAMazepine [TEGretol XR] 100 mg PO Q12H 01/11/18 01/25/18 History INSULIN LISPRO (HumaLOG) [humaLOG] 0 unit SQ ACHS #1 vial 01/16/18 01/25/18 Rx Ipratropium-Albuterol Nebulize 3 ml INHALATION RT-Q4H PRN 01/16/18 01/25/18 Rx [Duoneb 0.5 mg-3 mg/3 ml Soln] ampul.neb Ipratropium-Albuterol Nebulize 3 ml INHALATION RT-QID ampul.neb 01/16/18 Rx [Duoneb 0.5 mg-3 mg/3 ml Soln] Pantoprazole [Protonix] 40 mg PO AC-BRKFST tablet. 01/16/18 01/25/18 Rx predniSONE 10 mg PO DIRECTED #30 tab 01/16/18 01/25/18 Rx Allergies Allergy/AdvReac Type Severity Reaction Status Date / Time No Known Allergies Allergy Verified 01/25/18 00:00 Physical Exam Vitals: Vital Signs Temp Pulse Pulse Resp BP BP Pulse Ox 01/25/18 08:09 96 01/25/18 04:00 98.5 F 95 18 112/64 99 01/25/18 02:00 99.1 F 103 H 18 103/55 97 01/25/18 00:40 114 H 32 H 132/62 97 01/25/18 00:22 108 H 01/25/18 00:07 107 H 01/24/18 23:54 101.7 F H 114 H 38 H 166/72 88 L Intake and Output 01/24/18 01/25/18 01/25/18 22:59 06:59 14:59 Intake Total 550 Balance 550 Intake: Intake, IV Titration 550 Amount Azithromycin 500 mg In 250 Sodium Chloride 0.9% 250 ml @ 125 mls/hr IVPB ONCE STA Rx#:[id number] Cefepime 2 gm In Sodium 50 Chloride 0.9% 50 ml @ 100 mls/hr IVPB ONCE STA Rx# :[id number] Vancomycin 1,250 mg In 250 Sodium Chloride 0.9% 250 ml @ 125 mls/hr IVPB ONCE ONE Rx#:[id number] Other: Voiding Method Diaper Weight 54.5 kg - Constitutional General appearance: no acute distress - Respiratory Respiratory: bilateral: diminished - Cardiovascular Rhythm: regular Heart sounds: normal: S1, S2 Results 01/25/18 00:00 01/25/18 00:00 Cardiac Enzymes 01/25/18 01/25/18 01/25/18 Range/Units 00:00 00:00 06:22 AST 19 (14-36) U/L CK-MB (CK-2) 1.6 3.7 H* (0.0-2.4) ng/mL Troponin I 0.047 H* 0.463 H* (0.000-0.034) ng/mL Coagulation 01/25/18 Range/Units 00:00 PT 10.5 (9.0-12.0) sec APTT 23.9 (22.0-30.0) sec CBC 01/25/18 Range/Units 00:00 WBC 17.4 H (3.8-10.6) k/uL RBC 3.04 L (3.80-5.40) m/uL Hgb 8.5 L (11.4-16.0) gm/dL Hct 27.0 L (34.0-46.0) % Plt Count 527 H (150-450) k/uL Comprehensive Metabolic Panel 01/25/18 Range/Units 00:00 Sodium 136 L (137-145) mmol/L Potassium 5.4 H (3.5-5.1) mmol/L Chloride 101 (98-107) mmol/L Carbon Dioxide 23 (22-30) mmol/L BUN 24 H (7-17) mg/dL Creatinine 1.20 H (0.52-1.04) mg/dL Glucose 110 H (74-99) mg/dL Calcium 9.1 (8.4-10.2) mg/dL AST 19 (14-36) U/L ALT 20 (9-52) U/L Alkaline Phosphatase 81 (38-126) U/L Total Protein 6.4 (6.3-8.2) g/dL Albumin 3.2 L (3.5-5.0) g/dL Current Medications Generic Name Dose Route Start Last Admin Trade Name Freq PRN Reason Stop Dose Admin Albuterol/Ipratropium 3 ml 01/25/18 00:40 Duoneb 0.5 Mg-3 Mg/3 Ml Soln INHALATION RT-Q4H PRN Shortness Of Breath Or Wheezing Albuterol/Ipratropium 3 ml 01/25/18 08:00 01/25/18 08:06 Duoneb 0.5 Mg-3 Mg/3 Ml Soln INHALATION 3 ml RT-QID LIANG Administration Alprazolam 0.25 mg 01/25/18 02:58 Xanax PO BID PRN Anxiety Aspirin 81 mg 01/25/18 21:00 Aspirin PO HS [facility] Benzocaine/Menthol 1 each 01/25/18 03:00 01/25/18 06:34 Cepacol Lozenge MUCOUS MEM 1 each Q4HR PRN Administration Sore Throat Carbamazepine 100 mg 01/25/18 00:45 01/25/18 02:35 Tegretol Xr PO 100 mg Q12H LIANG Administration Fluticasone Propionate 2 spray 01/25/18 09:00 Flonase Nasal [place] EA NOSTRIL DAILY [facility] Vancomycin HCl 1,000 mg/ 250 mls @ 125 mls/hr 01/26/18 06:00 Sodium Chloride IVPB Q24H LIANG Insulin Aspart 0 unit 01/25/18 07:30 01/25/18 06:29 Novolog SQ 4 unit ACHS LIANG Administration Protocol Methylprednisolone Sodium Succinate 60 mg 01/25/18 06:00 01/25/18 06:12 Solu-Medrol IV 60 mg Q6HR LIANG Administration Metoprolol Tartrate 25 mg 01/25/18 09:00 Lopressor PO BID LIANG Intake and Output 01/24/18 01/25/18 01/25/18 22:59 06:59 14:59 Intake Total 550 Balance 550 Intake: Intake, IV Titration 550 Amount Azithromycin 500 mg In 250 Sodium Chloride 0.9% 250 ml @ 125 mls/hr IVPB ONCE STA Rx#:[id number] Cefepime 2 gm In Sodium 50 Chloride 0.9% 50 ml @ 100 mls/hr IVPB ONCE STA Rx# :[id number] Vancomycin 1,250 mg In 250 Sodium Chloride 0.9% 250 ml @ 125 mls/hr IVPB ONCE ONE Rx#:[id number] Other: Voiding Method Diaper Weight 54.5 kg 01/25/18 00:00 01/25/18 00:00 Assessment and Plan Assessment: assessment #1 acute respiratory failure secondary to COPD exacerbation #2 possible upper respiratory infection/flu symptoms #3 mildly abnormal cardiac enzymes #4 sinus tachycardia Plan #1 in view of the absence of any chest pain or discomfort I do feel we should treat the patient conservatively at this point of time #2 she might benefit from a stress test as an outpatient if any #3 she is on aspirin and metoprolol and we'll continue that #4 add statin to the current medical treatment #5 obtain an echocardiogram was Doppler #6 follow-up with the patient Thank you for allowing us participate in her care
[2018-01-25] MEDS: ALPRAZolam 0.25 MG TAB PO PRN ×2 (09:50→19:11)
[2018-01-25] MEDS: FLUTICASONE 50MCG/SPRAY NASAL 16GM EA NOSTRIL SCH (09:50)
[2018-01-25] MEDS: METOPROLOL TARTRATE 25 MG TAB PO SCH ×2 (09:50→20:02)
--- NOTE | 2018-01-25 12:11 | P.CNPUL ---
History of Present Illness Consult date: 01/25/18 Reason for consult: dyspnea, cough Chief complaint: Shortness of breath History of present illness: Patient seen and examined covering for Dr. Velázquez. This is an 82-year-old female who presented emergency department complaining of cough and shortness of breath. The patient was hospitalized about 2 weeks ago with COPD and pneumonia. She states she was discharged to a [facility] and began to feel worse. She states she had fevers and chills. She is also complaining of fatigue. She states she has a cough which is nonproductive. She has a known history of COPD and does wear oxygen at baseline. The patient is also complaining of a sore throat and hoarse voice. The patient has a right upper lobe cavitary lesion which has been followed by her primary customer service engineer and infectious disease. Chest x-ray this admission shows patchy pneumonic consolidation and atelectasis in the right lung is worse than last exam. The patient did have 4 out of 4 SIRS on admission. Review of Systems All systems: negative Past Medical History Past Medical History: COPD, GERD/Reflux, Hyperlipidemia, Osteoarthritis (OA), Pneumonia, Renal Disease, Rheumatoid Arthritis (RA), Skin Disorder Additional Past Medical History / Comment(s): Chronic hypoxic respiratory failure, interstitial lung disease, oxygen 3L at all times , chronic kidney disease stage II, recent UTI, hemorrhoids, hx psoriasis, osteoporosis, sinus problems, pulmonary fibrosis History of Any Multi-Drug Resistant Organisms: MRSA Date of last positivie culture/infection: 2010 MDRO Source:: lungs Past Surgical History: Tubal Ligation Additional Past Surgical History / Comment(s): EGD/colonoscopy, uterine fibroidectomy during which urethra was removed and reconstructed, bilateral cataract removal. Past Anesthesia/Blood Transfusion Reactions: No Reported Reaction Past Psychological History: Anxiety Smoking Status: Former smoker Past Alcohol Use History: None Reported Past Drug Use History: None Reported - Past Family History Mother Family Medical History: Unable to Obtain Additional Family Medical History / Comment(s): Pt does not recall mother's medical hx. She states she lived into her late 80's maybe even to age 90yrs. Father Family Medical History: Cancer Additional Family Medical History / Comment(s): . Medications and Allergies Home Medications Medication Instructions Recorded Confirmed Type Alendronate Sodium 70 mg PO Q7D 06/27/16 01/25/18 History Meloxicam 15 mg PO DAILY 06/27/16 01/25/18 History Methotrexate Sodium [Methotrexate] 20 mg PO FR 06/27/16 01/25/18 History Metoprolol Tartrate [Lopressor] 25 mg PO BID 06/27/16 01/25/18 History Pravastatin Sodium [Pravachol] 40 mg PO HS 06/27/16 01/25/18 History Budesonide [Pulmicort] 0.5 mg INHALATION RT-Q8H 01/11/18 01/25/18 History Cholecalciferol [Vitamin D3] 1,000 unit PO DAILY 01/11/18 01/25/18 History Fluticasone Nasal [place] [Flonase 2 spr EA NOSTRIL DAILY 01/11/18 01/25/18 History Nasal [place]] Folic Acid 1 mg PO HS 01/11/18 01/25/18 History Multivitamins, Thera [Multivitamin 1 tab PO DAILY 01/11/18 01/25/18 History (formulary)] carBAMazepine [TEGretol XR] 100 mg PO Q12H 01/11/18 01/25/18 History Ipratropium-Albuterol Nebulize 3 ml INHALATION RT-Q4H PRN 01/16/18 01/25/18 Rx [Duoneb 0.5 mg-3 mg/3 ml Soln] ampul.neb Acetaminophen Tab [Tylenol Tab] 650 mg PO Q4H PRN 01/25/18 01/25/18 History INSULIN LISPRO (HumaLOG) [humaLOG] See Protocol SQ ACHS 01/25/18 01/25/18 History Ipratropium-Albuterol Nebulize 3 ml INHALATION RT-Q6H 01/25/18 01/25/18 History [Duoneb 0.5 mg-3 mg/3 ml Soln] Levofloxacin [Levaquin] 500 mg PO DAILY 01/25/18 01/25/18 History Nystatin 100,000 Unit/ml Susp 5 ml PO Q6H 01/25/18 01/25/18 History [Mycostatin Oral Susp] Omeprazole 20 mg PO DAILY 01/25/18 01/25/18 History Phenol [Chloraseptic] 1 spray MUCOUS MEM Q8H PRN 01/25/18 01/25/18 History Psyllium Husk 100% [Metamucil 6 gm PO DAILY 01/25/18 01/25/18 History Packet] Sodium Chloride [Saline Nasal 1 spray EA NOSTRIL Q4H PRN 01/25/18 01/25/18 History [place]] predniSONE See Taper PO DAILY 01/25/18 01/25/18 History Allergies Allergy/AdvReac Type Severity Reaction Status Date / Time No Known Allergies Allergy Verified 01/25/18 11:46 Physical Exam Osteopathic Statement: *. No significant issues noted on an osteopathic structural exam other than those noted in the History and Physical/Consult. Vitals: Vital Signs Temp Pulse Pulse Resp BP BP Pulse Ox 01/25/18 11:42 96 01/25/18 11:34 92 01/25/18 08:20 100 01/25/18 08:09 96 01/25/18 08:00 97.7 F 99 22 127/69 97 01/25/18 04:00 98.5 F 95 18 112/64 99 01/25/18 02:00 99.1 F 103 H 18 103/55 97 01/25/18 00:40 114 H 32 H 132/62 97 01/25/18 00:22 108 H 01/25/18 00:07 107 H 01/24/18 23:54 101.7 F H 114 H 38 H 166/72 88 L Intake and Output 01/24/18 01/25/18 01/25/18 22:59 06:59 14:59 Intake Total 550 Balance 550 Intake: Intake, IV Titration 550 Amount Azithromycin 500 mg In 250 Sodium Chloride 0.9% 250 ml @ 125 mls/hr IVPB ONCE STA Rx#:[id number] Cefepime 2 gm In Sodium 50 Chloride 0.9% 50 ml @ 100 mls/hr IVPB ONCE STA Rx# :[id number] Vancomycin 1,250 mg In 250 Sodium Chloride 0.9% 250 ml @ 125 mls/hr IVPB ONCE ONE Rx#:[id number] Other: Voiding Method Diaper Weight 54.5 kg Gen.: Patient is alert and oriented 3, no acute distress Cardiovascular: Regular rate and rhythm, S1/S2 Lungs: Diminished breath sounds bilaterally Abdomen: Soft nontender nondistended positive bowel sounds Extremities: No edema Results - Laboratory Findings CBC and BMP: 01/25/18 00:00 01/25/18 00:00 PT/INR, D-dimer PT 10.5 sec (9.0-12.0) 01/25/18 00:00 INR 1.1 (<1.2) 01/25/18 00:00 Abnormal lab findings: Abnormal Labs 01/25/18 01/25/18 01/25/18 00:00 00:00 00:00 WBC 17.4 H RBC 3.04 L Hgb 8.5 L Hct 27.0 L RDW 21.5 H Plt Count 527 H Neutrophils # 14.7 H Monocytes # 1.1 H Sodium 136 L Potassium 5.4 H BUN 24 H Creatinine 1.20 H Glucose 110 H POC Glucose (mg/dL) CK-MB (CK-2) Troponin I 0.047 H* Albumin 3.2 L 01/25/18 01/25/18 06:12 06:22 WBC RBC Hgb Hct RDW Plt Count Neutrophils # Monocytes # Sodium Potassium BUN Creatinine Glucose POC Glucose (mg/dL) 175 H CK-MB (CK-2) 3.7 H* Troponin I 0.463 H* Albumin - Diagnostic Findings Chest x-ray: report reviewed, image reviewed CT scan - chest: report reviewed, image reviewed Assessment and Plan Assessment: Acute on chronic hypoxic respiratory failure Acute exacerbation of COPD/emphysema HC AP Right upper lobe cavitary lesion 4 out of 4 SIRS, sepsis NSTEMI Pulmonary hypertension, 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
[2018-01-25 12:22] LABS: Glucose,Whole Blood 154 mg/dL (75-99)
[2018-01-25 12:36] LABS: Creatine Kinase MB 4.4 ng/mL (0.0-2.4); Troponin I 0.532 ng/mL (0.000-0.034)
[2018-01-25] MEDS: SODIUM CHLORIDE 0.9% 1,000 ML IV SCH (13:21)
[2018-01-25 14:05] LABS: Hemoglobin A1C 5.9 % (4.0-6.0)
--- NOTE | 2018-01-25 14:26 | ECHOF ---
Referral Reason:cad MEASUREMENTS -------- HEIGHT: 157.5 cm WEIGHT: 54.4 kg BP: 127/69 RVIDd: 1.9 cm (< 3.3) IVSd: 0.8 cm (0.6 - 1.1) LVIDd: 4.4 cm (3.9 - 5.3) LVPWd: 1.0 cm (0.6 - 1.1) IVSs: 1.0 cm LVIDs: 3.1 cm LVPWs: 1.4 cm LAESV Index (A-L): 33.80 ml/m Ao Diam: 2.6 cm (2.0 - 3.7) AV Cusp: 0.9 cm (1.5 - 2.6) LA Diam: 2.8 cm (2.7 - 3.8) MV E Carrillo: 1.43 m/s MV DecT: 195 ms MV A Carrillo: 1.78 m/s MV E/A Ratio: 0.81 RAP: 10.00 mmHg RVSP: 56.65 mmHg FINDINGS -------- Sinus rhythm. This was a technically adequate study. The left ventricular size is normal. Left ventricular wall thickness is normal. Overall left vent ricular systolic function is normal with, an EF between 55 - 60 %. The right ventricle is normal in size and function. LA is midly dilated 29-33ml/m2. RA appears enlarged. There is mild aortic valve sclerosis. There is no evidence of aortic regurgitation. There is no e vidence of aortic stenosis. The mitral valve leaflets are mildly thickened. Severe mitral annular calcification present. Mode [id number] mitral regurgitation is present. The peak and mean MV gradients are 15.92mmHg 5.67m mHg as measured by doppler. Mild mitral stenosis. Severe tricuspid regurgitation present. There is moderate pulmonary hypertension. The right ventr icular systolic pressure, as measured by Doppler, is 56.65mmHg. The pulmonic valve was not well visualized. The aortic root size is normal. The IVC is dilated with normal collapse. The flow patterns, measured by Doppler, indicate systolic flow reversal suggestive of severe TR. There is no pericardial effusion. CONCLUSIONS -------- 1. Sinus rhythm. 2. This was a technically adequate study. 3. The left ventricular size is normal. 4. Left ventricular wall thickness is normal. 5. Overall left ventricular systolic function is normal with, an EF between 55 - 60 %. 6. LA is midly dilated 29-33ml/m2. 7. RA appears enlarged. 8. There is mild aortic valve sclerosis. 9. The mitral valve leaflets are mildly thickened. 10. Severe mitral annular calcification present. 11. [id number] mitral regurgitation is present. 12. The peak and mean MV gradients are 15.92mmHg 5.67mmHg as measured by doppler. 13. Mild mitral stenosis. 14. Severe tricuspid regurgitation present. 15. There is moderate pulmonary hypertension. 16. The right ventricular systolic pressure, as measured by Doppler, is 56.65mmHg. 17. The pulmonic valve was not well visualized. 18. The aortic root size is normal. 19. The IVC is dilated with normal collapse. 20. There is no pericardial effusion. DOG HAIR CLIPPER: Thai Sharma RDCS
[2018-01-25] MEDS: PIPERACILLIN-TAZOBACTAM 3.375 GM in DEXTROSE/WATER 1 50ML.BAG IVPB SCH ×2 (17:11→23:27)
[2018-01-25] MEDS: NYSTATIN 100,000 UNIT/ML SUSP 500,000 UNIT/5 ML CUP PO SCH ×2 (17:11→21:02)
[2018-01-25 17:18] LABS: Glucose,Whole Blood 130 mg/dL (75-99)
[2018-01-25] MEDS: HEPARIN SODIUM,PORCINE 5,000 UNIT/ML 1 ML VIAL SQ SCH ×2 (17:29→23:27)
[2018-01-25 18:50] LABS: Creatine Kinase MB 4.4 ng/mL (0.0-2.4); Troponin I 0.415 ng/mL (0.000-0.034)
[2018-01-25] MEDS: BUDESONIDE 0.5 MG/2 ML NEBU INHALATION SCH (19:13)
[2018-01-25] MEDS: FORMOTEROL FUMARATE 20 MCG/2 ML NEBU INHALATION SCH (19:13)
[2018-01-25] MEDS ORDERED: ACETAMINOPHEN TAB 325 MG TAB PO PRN (19:17)
[2018-01-25] MEDS ORDERED: SODIUM CHLORIDE 0.65% NASAL SPRAY 44 ML BTL INTRANASAL PRN (19:17)
[2018-01-25] MEDS ORDERED: NON-FORMULARY DRUG (Alendronate Sodium [Alendronate Sodium] 70 MG) PO SCH (19:30)
[2018-01-25] MEDS: ATORVASTATIN 40 MG TAB PO SCH (20:02)
[2018-01-25] MEDS: MONTELUKAST 10 MG TAB PO SCH (20:02)
[2018-01-25] MEDS: ASPIRIN 81 MG PO SCH (20:02)
[2018-01-25] MEDS: FOLIC ACID 1 MG TAB PO SCH (20:02)
--- NOTE | 2018-01-25 20:35 | HP ---
HISTORY AND PHYSICAL CHIEF COMPLAINT: Shortness of breath and cough. HISTORY OF PRESENT ILLNESS: This 82-year-old woman with a past medical history of multiple medical problems, including COPD, history of multiple bullous lesions, history of DJD, history of rheumatoid arthritis, history of chronic hypoxic respiratory failure, history of anxiety being followed by Dr. Sheffield in the outpatient setting and also seeing Dr. Velázquez. The patient had right upper lobe lesion and was admitted recently with right upper lobe pneumonia and the patient went home. A biopsy was deferred because of the risk of pneumothorax as well as a bronchoscopy was also deferred. Currently the patient is complaining of increasing weakness and tiredness and shortness of breath. The patient came to [facility] and healthcare-associated pneumonia is suspected. The patient is evaluated by Pulmonology. Patient is started on broad-spectrum IV antibiotics, including vancomycin, also. The patient also is getting steroids. Cardiology is seeing the patient, also. There is no history of fever, rigors. No history of headache, loss of consciousness, seizures. PAST MEDICAL HISTORY: History of COPD, GERD, hyperlipidemia, history of pneumonia, rheumatoid arthritis, history of tubal ligation, history of anxiety. MEDICATIONS PRIOR TO ADMISSION: The home medications include: 1. Saline nasal spray 1 spray q.4h p.r.n. 2. DuoNeb q.i.d. and p.r.n. 3. Tylenol 650 q.4h p.r.n. 4. Mycostatin 500 mg every 6 hours p.r.n. 5. DuoNeb q.i.d. every 6 hours. 6. Humalog a.c. and at bedtime. 7. Pulmicort 0.5 q.8h. 8. Tegretol 100 mg p.o. b.i.d. 9. Chloraseptic 1 spray q.8h p.r.n. 10.Prednisone taper daily. 11.Lopressor 25 mg b.i.d. 12.Pravachol 40 mg q.h.s. 13.20 mg p.o. daily. 14.Metamucil 6 g p.o. daily. 15.Multivitamins 1 p.o. daily. 16.Methotrexate 20 mg p.o. Saturday. 17.Meloxicam 15 mg p.o. daily. 18.Levaquin 500 mg p.o. daily. 19.Folic acid 1 mg p.o. q.h.s. 20.Flonase 2 sprays daily. 21.Vitamin D3 1000 daily. 22.Fosamax 70 mg q.7 days. ALLERGIES: None. FAMILY HISTORY: Unable to obtain. No recollection. SOCIAL HISTORY: Previous history of smoking. No history of alcohol intake. REVIEW OF SYSTEMS: ENT: Diminished hearing, diminished vision. CARDIOVASCULAR: No angina, palpitations. RESPIRATORY: As mentioned earlier. GI: No nausea or vomiting. : No dysuria. NERVOUS: No numbness or weakness. ALLERGY/IMMUNOLOGY: No asthma or hay fever. MUSCULOSKELETAL: As mentioned earlier. HEMATOLOGY/ONCOLOGY: No history of anemia. ENDOCRINE: History of diabetes. No hypothyroidism. CONSTITUTIONAL: As mentioned earlier. DERMATOLOGY: Negative. RHEUMATOLOGY: Negative. PSYCHIATRY: As mentioned earlier. PHYSICAL EXAMINATION: Alert and oriented x3. Pulse 89, blood pressure 130/64, respirations 24, temperature 97.6, pulse ox 96% on 4L. HEENT: Conjunctivae normal. Oral mucosa moist. NECK: No jugular venous distention. No carotid bruits. No lymph node enlargement. CARDIOVASCULAR: S1, S2 muffled. RESPIRATORY: Breath sounds diminished in the bases. A few scattered rhonchi and crackles. ABDOMEN: Soft, nontender. No mass palpable. LEGS: No edema. No swelling. NERVOUS SYSTEM: Higher functions as mentioned earlier. Moves all 4 limbs. No focal motor or sensory deficits. LYMPHATIC: No lymphadenopathy in neck or axillae. SKIN: No ulcer, rash or bleeding. LABS: WBC 17, hemoglobin is 8.5. Sodium 130, potassium 5.5, creatinine is 1.2. Chest x-ray reviewed personally. Troponin 0.415. ASSESSMENT: 1. Chronic obstructive pulmonary disease acute exacerbation with possible right upper lobe pneumonia, possibly healthcare-associated pneumonia. 2. Multiple bullous lesions. 3. Troponin 0.415, indeterminate. 4. Hypokalemia. 5. Increased WBC. 6. Anemia. 7. History of gastroesophageal reflux disease. 8. History of hypertension. 9. Hyperlipidemia. 10.History of rheumatoid arthritis. 11.History of chronic hypoxic respiratory failure. 12.History of recurrent urinary tract infection. 13.Chronic kidney disease stage 2. 14.History of Methicillin-resistant Staphylococcus aureus. 15.History of anxiety. 16.Remote history of nicotine dependence. 17.NO CODE, NO CPR. RECOMMENDATIONS AND DISCUSSION: In this 82-year-old woman who presented with multiple complex medical issues, will monitor the patient closely, continue the current medical management and symptomatic treatment. Will initiate broad-spectrum IV antibiotics, including Zosyn and vancomycin. Otherwise, obtain cultures, infectious disease evaluation, pulmonary evaluation. Steroids, monitor blood sugars closely. DVT prophylaxis. Prognosis guarded because of multiple complex medical issues and further recommendations to follow. See orders for further details. Discussed with the patient. The patient is NO CODE. A home medication reconciliation also will be done. Further recommendations to follow. MMODL / IJN: [id number] / BYRON
[2018-01-25 21:09] LABS: Glucose,Whole Blood 203 mg/dL (75-99)
--- NOTE | 2018-01-25 23:50 | CONS ---
CONSULTATION DATE OF SERVICE: 01/25/2018. REASON FOR CONSULTATION: Fever and pneumonia. HISTORY OF PRESENT ILLNESS: The patient is an 82-year-old female who was recently admitted at this facility and treated for COPD exacerbation and pneumonia and [facility]. The patient has now been brought back to the [facility] ER on 01/25/2018 with chief complaints of increasing shortness of breath and cough. Symptoms have been getting worse over the last week. The patient did have a cough, productive of minimal amount of lara sputum. No hemoptysis. The cough is white noted intensity with associated shortness of breath on minimal exertion. The patient denies having any nausea or any vomiting. The patient has been complaining of some sore throat and difficulty swallowing. However, denies having any choking on the food or coughing after eating. No nausea, vomiting, or any diarrhea. With these symptoms, the patient was evaluated by the ER physician. On arrival to the ER, the patient did have fever of 101.7 degrees Fahrenheit. The patient was tachycardic and tachypneic, breathing 38 breaths per minute. The patient also had elevated white count of 17.4. The patient did have a chest x-ray which did show a patchy pneumonia consolidation and in the right lung worse than the last exam. The patient did receive a dose of cefepime, azithromycin, and vancomycin in the ER and vancomycin was continued. Infectious disease consult was recommended for further recommendation regarding antibiotic therapy. REVIEW OF SYSTEMS: Constitutional: Positive for weakness along with the fever. Eyes: No complaint. ENT no complaint. Respiratory as per HPI. Cardiovascular: No complaint. Genitourinary: No complaint. Gastrointestinal: No complaint. Musculoskeletal no complaint. Integument no complaint. Psychological no complaint. Endocrine no complaint. Neurological: No complaint. PAST MEDICAL HISTORY: COPD, recently admitted to the hospital for pneumonia, hyperlipidemia, osteoarthritis, renal insufficiency, rheumatoid arthritis, chronic respiratory failure and interstitial lung disease. Previous history of MRSA infection. PAST SURGICAL HISTORY: EGD, colonoscopy, bilateral cataract surgery, tubal ligation. SOCIAL HISTORY: Remote history of smoking. No drinking or drug use. FAMILY HISTORY: Father history of cancer of unknown type. ALLERGIES: No known drug allergies. MEDICATIONS: Include the patient is currently on Tylenol, DuoNeb, Xanax, aspirin, Lipitor, Pulmicort, Tegretol-Xr, vitamin D3, Flonase, Tam catheter, heparin, NovoLog, Mobic, methotrexate, Solu-Medrol. Lopressor, Singulair, Theragran, Nystatin oral suspension, Protonix, vancomycin, pharmacy to dose. EXAMINATION: Blood pressure 136/53 with a pulse of 109, temperature 97.1, T-max is 101.7. She is 97% on 4 L nasal cannula. General description is an elderly female up in the bed in no distress. No tachypnea or accessory muscles of respiration use. HEENT: Shows pallor, no scleral icterus. Oral mucosa membranes is moist with minimal pharyngeal erythema and thrush. Neck trachea central. No thyromegaly. Lungs unlabored breathing. Coarse crackles in the right base. No wheeze. Heart S1, S2. Regular rate and rhythm. ABDOMEN: Soft, no tenderness. No guarding. No organomegaly. EXTREMITIES: No edema of the feet. Skin examination no rash or mass palpable. Neurological: Patient is awake, alert, oriented times three. Mood and affect normal. LABS: Hemoglobin 8.5, white count 17.4, BUN of 24, creatinine 1.20, electrolytes have been normal. Troponin has been elevated. Influenza serology was negative. Chest x-ray report as mentioned above. DIAGNOSTIC IMPRESSION/PLAN: 1. Patient admitted to the hospital with sepsis and the patient noted to have a fever of 101.7. The patient tachycardia, tachypneic. Heart rate in 107, shows breathing 28 breaths per minute. Did have elevated white count 17.4, meeting criteria for SIRS source right lower lobe pneumonia in patient who has been in and out of the hospital possible resistant gram-positive and gram-negative pathogen such as an MRSA and Pseudomonas aeruginosa. 2. Patient does have a chronic renal insufficiency with borderline kidney function that put her at high risk of antibiotic toxicity, the patient needs to be treated for underlying nosocomial pneumonia. 3. Patient with oral thrush. PLAN: 1. We will try to obtain sputum for Gram stain culture and sensitivity. 2. Vancomycin pharmacy to dose target trough of 15. However, need to watch kidney function very closely on a daily basis. 3. We will add Zosyn 3.375 g IV q8 hours to cover for possible gram-negative pathogen. 4. Nystatin swish and swallow. 5. Depending upon the clinical response as well as cultures, we will adjust her medications further if needed. 6. Family was present at bedside. Their questions were answered. MMBUSHRA / ANGLEN: [id number] / BYRON
[2018-01-26] MEDS: ALPRAZolam 0.25 MG TAB PO PRN ×2 (04:12→19:48)
[2018-01-26 06:29] LABS: Glucose,Whole Blood 133 mg/dL (75-99)
[2018-01-26 06:50] LABS: Anisocytosis Moderate; Basophils % (A) 0 %; Eosinophils % (A) 0 %; HCT 23.9 % (34.0-46.0); HGB 7.5 gm/dL (11.4-16.0); Hypochromasia Marked; Lymphocytes # (A) 0.6 k/uL (1.0-4.8); Lymphocytes % (A) 4 %; MCH 28.3 pg (25.0-35.0); MCHC 31.2 g/dL (31.0-37.0); MCV 90.7 fL (80.0-100.0); Macrocytosis Slight; Mean Platelet Volume 6.8; Monocytes # (A) 0.4 k/uL (0-1.0); Monocytes % (A) 3 %; Neutrophils # (A) 14.4 k/uL (1.3-7.7); Neutrophils % (A) 93 %; Platelet Count 451 k/uL (150-450); RBC 2.64 m/uL (3.80-5.40); RDW 22.1 % (11.5-15.5); WBC 15.5 k/uL (3.8-10.6)
[2018-01-26] MEDS: INSULIN ASPART 100 UNIT/ML 1 ML 10 ML VIAL SQ SCH ×4 (06:56→22:00)
[2018-01-26] MEDS: methylPREDNISolone SOD SUCCI 125 MG/2 ML VIAL IV SCH ×4 (06:57→22:54)
[2018-01-26] MEDS: VANCOMYCIN 1,000 MG in SODIUM CHLORIDE 0.9% 250 ML IVPB SCH (06:57)
[2018-01-26] MEDS: PANTOPRAZOLE 40 MG TABLET PO SCH (06:57)
[2018-01-26 07:11] LABS: Calcium 8.5 mg/dL (8.4-10.2); Potassium 5.5 mmol/L (3.5-5.1)
[2018-01-26] MEDS: IPRATROPIUM-ALBUTEROL 3 ML NEB INHALATION SCH ×4 (08:09→21:15)
[2018-01-26] MEDS: BUDESONIDE 0.5 MG/2 ML NEBU INHALATION SCH ×2 (08:09→21:15)
[2018-01-26] MEDS: FORMOTEROL FUMARATE 20 MCG/2 ML NEBU INHALATION SCH ×2 (08:09→21:15)
[2018-01-26] MEDS: FLUTICASONE 50MCG/SPRAY NASAL 16GM EA NOSTRIL SCH (08:34)
[2018-01-26] MEDS: HEPARIN SODIUM,PORCINE 5,000 UNIT/ML 1 ML VIAL SQ SCH ×3 (08:34→22:54)
[2018-01-26] MEDS: NYSTATIN 100,000 UNIT/ML SUSP 500,000 UNIT/5 ML CUP PO SCH ×4 (08:35→19:49)
[2018-01-26] MEDS: CHOLECALCIFEROL 1,000 UNIT TAB PO SCH (08:35)
[2018-01-26] MEDS: MELOXICAM 7.5 MG TAB PO SCH (08:35)
[2018-01-26] MEDS: MULTIVITAMINS, THERA 1 EACH TAB PO SCH (08:36)
[2018-01-26] MEDS: METOPROLOL TARTRATE 25 MG TAB PO SCH (08:36)
[2018-01-26] MEDS: PSYLLIUM HUSK 100% 6 GM PACKET PO SCH (08:49)
[2018-01-26] MEDS ORDERED: NON-FORMULARY DRUG (Omeprazole [Omeprazole] 20 MG) PO SCH (09:00)
--- NOTE | 2018-01-26 09:09 | P.PN ---
Subjective Progress Note Date: 01/26/18 Principal diagnosis: shortness of breath This is a pleasant 82-year-old female patient with a past medical history significant for COPD/chronic respiratory failure on home oxygen presented to the hospital complaining of shortness of breath. She just was discharged from the hospital a few weeks ago after she was admitted with a pneumonia/COPD exacerbation. This time she presented back to the hospital complaining of sore throat associated with fever according to her and also shortness of breath and wheezing. The patient did not have any chest pain or chest discomfort but she felt her heart was racing up. No dizziness or lightheadedness and no syncope. The EKG showed sinus rhythm with a sinus tachycardia and nonspecific changes in the lateral leads. She underwent 2 sets of cardiac enzymes came in to be slightly abnormal but the patient did not have any chest pain or discomfort. The chest x-ray showed chronic changes only. On follow-up with the patient today, she is feeling slightly better in terms of shortness of breath. Denies having any chest pain or chest discomfort. The echocardiogram revealed normal LV function with evidence off moderate to severe MR, mild mitral stenosis, and severe tricuspid regurgitation. Objective - Vital Signs Vital signs: Vital Signs Temp 97 F L 01/26/18 08:00 Pulse 104 H 01/26/18 08:42 Resp 24 01/26/18 08:00 BP 133/66 01/26/18 08:00 Pulse Ox 98 01/26/18 08:00 Intake & Output 01/25/18 01/26/18 01/26/18 18:59 06:59 18:59 Intake Total 410 400 Output Total 800 Balance -390 400 Weight 58 kg Intake: Intake, IV Titration 200 400 Amount Sodium Chloride 0.9% 1, 200 400 000 ml @ 50 mls/hr IV . Q20H LIANG Rx#:[id number] Oral 210 Output: Urine 800 Other: Voiding Method Diaper # Voids 200 - Constitutional General appearance: Present: no acute distress - Respiratory Respiratory: bilateral: rales - Cardiovascular Rhythm: regular Heart sounds: normal: S1, S2 Abnormal Heart Sounds: Present: systolic murmur - Labs CBC & Chem 7: 01/26/18 06:04 01/26/18 06:04 Labs: Abnormal Lab Results - Last 24 Hours (Table) 03/31/18 03/31/18 03/31/18 Range/Units 11:34 12:03 17:01 WBC (3.8-10.6) k/uL RBC (3.80-5.40) m/uL Hgb (11.4-16.0) gm/dL Hct (34.0-46.0) % RDW (11.5-15.5) % Plt Count (150-450) k/uL Neutrophils # (1.3-7.7) k/uL Lymphocytes # (1.0-4.8) k/uL Potassium (3.5-5.1) mmol/L Chloride (98-107) mmol/L BUN (7-17) mg/dL Creatinine (0.52-1.04) mg/dL Glucose (74-99) mg/dL POC Glucose (mg/dL) 154 H 130 H (75-99) mg/dL CK-MB (CK-2) 4.4 H* (0.0-2.4) ng/mL Troponin I 0.532 H* (0.000-0.034) ng/mL 01/25/18 01/25/18 01/26/18 Range/Units 18:09 20:58 06:04 WBC (3.8-10.6) k/uL RBC (3.80-5.40) m/uL Hgb (11.4-16.0) gm/dL Hct (34.0-46.0) % RDW (11.5-15.5) % Plt Count (150-450) k/uL Neutrophils # (1.3-7.7) k/uL Lymphocytes # (1.0-4.8) k/uL Potassium 5.5 H (3.5-5.1) mmol/L Chloride 108 H (98-107) mmol/L BUN 23 H (7-17) mg/dL Creatinine 1.07 H (0.52-1.04) mg/dL Glucose 119 H (74-99) mg/dL POC Glucose (mg/dL) 203 H (75-99) mg/dL CK-MB (CK-2) 4.4 H* (0.0-2.4) ng/mL Troponin I 0.415 H* (0.000-0.034) ng/mL 01/26/18 01/26/18 Range/Units 06:04 06:28 WBC 15.5 H (3.8-10.6) k/uL RBC 2.64 L (3.80-5.40) m/uL Hgb 7.5 L (11.4-16.0) gm/dL Hct 23.9 L (34.0-46.0) % RDW 22.1 H (11.5-15.5) % Plt Count 451 H (150-450) k/uL Neutrophils # 14.4 H (1.3-7.7) k/uL Lymphocytes # 0.6 L (1.0-4.8) k/uL Potassium (3.5-5.1) mmol/L Chloride (98-107) mmol/L BUN (7-17) mg/dL Creatinine (0.52-1.04) mg/dL Glucose (74-99) mg/dL POC Glucose (mg/dL) 133 H (75-99) mg/dL CK-MB (CK-2) (0.0-2.4) ng/mL Troponin I (0.000-0.034) ng/mL Microbiology - Last 24 Hours (Table) 01/25/18 19:18 Gram Stain - Preliminary Sputum 01/25/18 00:00 Blood Culture - Preliminary Blood No Growth after 24 hours Assessment and Plan Assessment: assessment #1 acute respiratory failure secondary to COPD exacerbation #2 possible upper respiratory infection/flu symptoms #3 mildly abnormal cardiac enzymes #4 sinus tachycardia Plan #1 in view of the absence of any chest pain or discomfort I do feel we should treat the patient conservatively at this point of time #2 she might benefit from a stress test as an outpatient if any #3 she is on aspirin and metoprolol we'll continue that and I would increase the dose of metoprolol for better heart rate control #4 continue statin as well #5 the echocardiogram as described above. Thank you for allowing us participate in her care
[2018-01-26] MEDS: PIPERACILLIN-TAZOBACTAM 3.375 GM in DEXTROSE/WATER 1 50ML.BAG IVPB SCH ×3 (11:06→22:54)
[2018-01-26] MEDS: SODIUM CHLORIDE 0.9% 1,000 ML IV SCH (11:07)
[2018-01-26] MEDS: carBAMazepine 100 MG TAB.ER.12H PO SCH (12:14)
[2018-01-26 12:25] LABS: Glucose,Whole Blood 157 mg/dL (75-99)
[2018-01-26 17:49] LABS: Glucose,Whole Blood 134 mg/dL (75-99)
[2018-01-26] MEDS: METOPROLOL TARTRATE 50 MG TAB PO SCH (19:48)
[2018-01-26] MEDS: FOLIC ACID 1 MG TAB PO SCH (19:48)
[2018-01-26] MEDS: MONTELUKAST 10 MG TAB PO SCH (19:48)
[2018-01-26] MEDS: ASPIRIN 81 MG PO SCH (19:48)
[2018-01-26] MEDS: ATORVASTATIN 40 MG TAB PO SCH (19:48)
[2018-01-26 21:03] LABS: Glucose,Whole Blood 150 mg/dL (75-99)
--- NOTE | 2018-01-26 21:44 | P.PN ---
Subjective Progress Note Date: 01/26/18 Principal diagnosis: Pneumonia/HCAP 82-year-old female patient with a past medical history significant for COPD/chronic respiratory failure on home oxygen presented to the hospital complaining of shortness of breath. Patient was febrile, tachycardic, tachypneic and leukocytosis on admission. Patient is currently being treated for pneumonia. 01/26/2018 Patient says that her breathing is better today. No complaints of chest pain. Patient has been afebrile today. Leukocytosis slightly improved. Otherwise patient is currently on vancomycin and Zosyn ID is following. Patient was seen by cardiology due to elevated troponin level. 2-D echocardiogram showed moderate to severe mitral regurgitation and severe tricuspid regurgitation. Cardiology recommended conservative management at this time. Otherwise patient is clinically slightly improved. No nausea vomiting or abdominal pain. No diarrhea. All other review of systems negative except the above Active Medications Generic Name Dose Route Start Last Admin Trade Name Freq PRN Reason Stop Dose Admin Acetaminophen 650 mg 01/25/18 19:17 Tylenol Tab PO Q4H PRN Mild Pain Albuterol/Ipratropium 3 ml 01/25/18 00:40 Duoneb 0.5 Mg-3 Mg/3 Ml Soln INHALATION RT-Q4H PRN Shortness Of Breath Or Wheezing Albuterol/Ipratropium 3 ml 01/25/18 08:00 01/26/18 21:15 Duoneb 0.5 Mg-3 Mg/3 Ml Soln INHALATION 3 ml RT-QID LIANG Administration Alprazolam 0.25 mg 01/25/18 22:02 01/26/18 19:48 Xanax PO 0.25 mg TID PRN Administration Anxiety Aspirin 81 mg 01/25/18 21:00 01/26/18 19:48 Aspirin PO 81 mg HS LIANG Administration Atorvastatin Calcium 40 mg 01/25/18 21:00 01/26/18 19:48 Lipitor PO 40 mg HS LIANG Administration Benzocaine/Menthol 1 each 01/25/18 03:00 01/25/18 09:52 Cepacol Lozenge MUCOUS MEM 1 each Q4HR PRN Administration Sore Throat Budesonide 0.5 mg 01/25/18 20:00 01/26/18 21:15 Pulmicort INHALATION 0.5 mg RT-BID LIANG Administration Carbamazepine 100 mg 01/25/18 00:45 01/26/18 12:14 Tegretol Xr PO 100 mg Q12H LIANG Administration Cholecalciferol 1,000 unit 01/26/18 09:00 01/26/18 08:35 Vitamin D3 PO 1,000 unit DAILY LIANG Administration Fluticasone Propionate 2 spray 01/25/18 09:00 01/26/18 08:34 Flonase Nasal [place] EA NOSTRIL 2 spray DAILY LIANG Administration Folic Acid 1 mg 01/25/18 21:00 01/26/18 19:48 Folic Acid PO 1 mg HS LIANG Administration Formoterol Fumarate 20 mcg 01/25/18 20:00 01/26/18 21:15 Perforomist INHALATION 20 mcg RT-BID LIANG Administration Heparin Sodium (Porcine) 5,000 unit 01/25/18 16:00 01/26/18 16:58 Heparin SQ 5,000 unit Q8HR LIANG Administration Vancomycin HCl 1,000 mg/ 250 mls @ 125 mls/hr 01/26/18 06:00 01/26/18 06:57 Sodium Chloride IVPB 125 mls/hr Q24H LIANG Administration Sodium Chloride 1,000 mls @ 50 mls/hr 01/25/18 12:15 01/26/18 11:07 Saline 0.9% IV 50 mls/hr .Q20H LIANG Administration Piperacillin/Tazobactam/ 50 mls @ 12.5 mls/hr 01/25/18 16:00 01/26/18 16:58 Dextrose 3.375 gm/ IV Solution IVPB 12.5 mls/hr Q8HR LIANG Administration Insulin Aspart 0 unit 01/25/18 07:30 01/26/18 17:33 Novolog SQ Not Given ACHS [facility] Protocol Meloxicam 15 mg 01/26/18 09:00 01/26/18 08:35 Mobic PO 15 mg DAILY LIANG Administration Methotrexate 20 mg 01/31/18 09:00 Methotrexate PO FR [facility] Methylprednisolone Sodium Succinate 60 mg 01/25/18 06:00 01/26/18 16:58 Solu-Medrol IV 60 mg Q6HR LIANG Administration Metoprolol Tartrate 50 mg 01/26/18 21:00 01/26/18 19:48 Lopressor PO 50 mg BID LIANG Administration Montelukast Sodium 10 mg 01/25/18 21:00 01/26/18 19:48 Singulair PO 10 mg HS LIANG Administration Multivitamins 1 each 01/26/18 12:00 01/26/18 08:36 Theragran PO 1 each DAILY@1200 LIANG Administration Nystatin 500,000 unit 01/25/18 18:00 01/26/18 19:49 Mycostatin Oral Susp PO 500,000 unit QID LIANG Administration Pantoprazole Sodium 40 mg 01/26/18 07:30 01/26/18 06:57 Protonix PO 40 mg AC-[id number] LIANG Administration Psyllium Hydrophilic Mucilloid 6 gm 01/26/18 09:00 01/26/18 08:49 Metamucil PO Not Given DAILY LIANG Sodium Chloride 1 spray 01/25/18 19:17 [place] Sea INTRANASAL Q4H PRN DRY NARES Objective - Vital Signs Vital signs: Vital Signs Temp 97 F L 01/26/18 08:00 Pulse 96 01/26/18 15:54 Resp 19 01/26/18 12:00 BP 125/70 01/26/18 12:00 Pulse Ox 98 01/26/18 12:00 Intake & Output 01/25/18 01/26/18 01/26/18 18:59 06:59 18:59 Intake Total 410 400 410 Output Total 800 Balance -390 400 410 Weight 58 kg Intake: Intake, IV Titration 200 400 Amount Sodium Chloride 0.9% 1, 200 400 000 ml @ 50 mls/hr IV . Q20H LIANG Rx#:[id number] Oral 210 410 Output: Urine 800 Other: Voiding Method Diaper # Voids 200 1 - Exam PHYSICAL EXAMINATION: Patient is lying in the bed comfortably, no acute distress, awake alert and oriented.. HEENT: Normocephalic. Neck is supple. Pupils reactive. Nostrils clear. Oral cavity is moist. Ears reveal no drainage. Neck reveals no JVD, carotid bruits, or thyromegaly. CHEST EXAMINATION: Trachea is central. Symmetrical expansion. Bilateral diffuse rhonchi and prolonged expiration. CARDIAC: Normal S1, S2 with no gallops. No murmurs ABDOMEN: Soft. Bowel sounds normal. No organomegaly. No abdominal bruits. Extremities: reveal no edema. No clubbing or cyanosis Neurologically awake, alert, oriented x3 with well-coordinated movements. No focal deficits noted Skin: No rash or skin lesions. Psychiatric: Cooperative. Nonsuicidal Musculoskeletal: No joint swelling or deformity. Normal range of motion. - Labs CBC & Chem 7: 01/26/18 06:04 01/26/18 06:04 Labs: Abnormal Lab Results - Last 24 Hours (Table) 01/25/18 01/25/18 01/25/18 Range/Units 17:01 18:09 20:58 WBC (3.8-10.6) k/uL RBC (3.80-5.40) m/uL Hgb (11.4-16.0) gm/dL Hct (34.0-46.0) % RDW (11.5-15.5) % Plt Count (150-450) k/uL Neutrophils # (1.3-7.7) k/uL Lymphocytes # (1.0-4.8) k/uL Potassium (3.5-5.1) mmol/L Chloride (98-107) mmol/L BUN (7-17) mg/dL Creatinine (0.52-1.04) mg/dL Glucose (74-99) mg/dL POC Glucose (mg/dL) 130 H 203 H (75-99) mg/dL CK-MB (CK-2) 4.4 H* (0.0-2.4) ng/mL Troponin I 0.415 H* (0.000-0.034) ng/mL 01/26/18 01/26/18 01/26/18 Range/Units 06:04 06:04 06:28 WBC 15.5 H (3.8-10.6) k/uL RBC 2.64 L (3.80-5.40) m/uL Hgb 7.5 L (11.4-16.0) gm/dL Hct 23.9 L (34.0-46.0) % RDW 22.1 H (11.5-15.5) % Plt Count 451 H (150-450) k/uL Neutrophils # 14.4 H (1.3-7.7) k/uL Lymphocytes # 0.6 L (1.0-4.8) k/uL Potassium 5.5 H (3.5-5.1) mmol/L Chloride 108 H (98-107) mmol/L BUN 23 H (7-17) mg/dL Creatinine 1.07 H (0.52-1.04) mg/dL Glucose 119 H (74-99) mg/dL POC Glucose (mg/dL) 133 H (75-99) mg/dL CK-MB (CK-2) (0.0-2.4) ng/mL Troponin I (0.000-0.034) ng/mL 01/26/18 Range/Units 12:12 WBC (3.8-10.6) k/uL RBC (3.80-5.40) m/uL Hgb (11.4-16.0) gm/dL Hct (34.0-46.0) % RDW (11.5-15.5) % Plt Count (150-450) k/uL Neutrophils # (1.3-7.7) k/uL Lymphocytes # (1.0-4.8) k/uL Potassium (3.5-5.1) mmol/L Chloride (98-107) mmol/L BUN (7-17) mg/dL Creatinine (0.52-1.04) mg/dL Glucose (74-99) mg/dL POC Glucose (mg/dL) 157 H (75-99) mg/dL CK-MB (CK-2) (0.0-2.4) ng/mL Troponin I (0.000-0.034) ng/mL Microbiology - Last 24 Hours (Table) 01/25/18 19:18 Gram Stain - Preliminary Sputum Sputum Culture - Preliminary Presumptive Staph aureus 01/25/18 00:00 Blood Culture - Preliminary Blood No Growth after 24 hours Assessment and Plan Assessment: Acute COPD exacerbation and possible right upper lobe pneumonia/healthcare associated pneumonia Sepsis secondary to pneumonia Bullous lesions multiple Acute on chronic hypoxic respiratory failure Elevated troponin level. Likely due to infection Moderate to severe mitral regurgitation and severe tricuspid regurgitation Acute kidney injury with CK D stage II Hyperkalemia due to acute kidney injury Hypertension Hyperlipidemia History of rheumatoid arthritis GERD Remote history of nicotine dependence Anxiety CODE STATUS is DO NOT RESUSCITATE/DO NOT INTUBATE Plan: Patient be continued on vancomycin and Zosyn. Sputum cultures sent. ID and cardiology is following. We will continue the steroids and breathing treatments and follow up closely. Continue the home medications and further recommendations based on the clinical course. Prognosis is guarded. Time with Patient: Greater than 30
--- NOTE | 2018-01-26 23:21 | PN ---
PROGRESS NOTE DATE OF SERVICE: 01/26/2018. REASON FOR FOLLOWUP: Pneumonia, possibly MRSA. INTERVAL HISTORY: The patient is afebrile. She is breathing slightly comfortably. Denies having any chest pain. Did have a cough. No nausea, vomiting, abdominal pain or diarrhea. EXAMINATION: Blood pressure 132/72 with a pulse of 84 temperature is 97.2, she is 97% on 4 L nasal cannula. General description is an elderly female up in the bed in no distress. HEENT examination mild thrush. Lungs unlabored breathing, decreased spasm. No wheeze. Heart S1, S2. Regular rate and rhythm. No tenderness. LABS: Hemoglobin 7.5, white count down to 15.4, BUN of 23, creatinine 1.7. Sputum showing Staph aureus. Blood culture negative. DIAGNOSTIC IMPRESSION AND PLAN: 1. Patient admitted to the hospital with sepsis, source nosocomial pneumonia with sputum showing Staph aureus, concern for possible MRSA. The patient will continue with vancomycin pharmacy to dose, while waiting for the final ID of this pathogen. 2. Oral thrush. Continue nystatin swish and swallow. Dr. Gilmore will follow this patient as of tomorrow. MMODL / IJN: [id number] /
[2018-01-27] MEDS: carBAMazepine 100 MG TAB.ER.12H PO SCH ×3 (00:28→23:29)
[2018-01-27] MEDS: ALPRAZolam 0.25 MG TAB PO PRN ×3 (02:41→22:09)
[2018-01-27 05:48] LABS: Glucose,Whole Blood 127 mg/dL (75-99)
[2018-01-27] MEDS: INSULIN ASPART 100 UNIT/ML 1 ML 10 ML VIAL SQ SCH ×4 (06:15→21:10)
[2018-01-27 06:44] LABS: Anisocytosis Moderate; Basophils % (A) 0 %; Eosinophils % (A) 0 %; HCT 22.9 % (34.0-46.0); HGB 7.1 gm/dL (11.4-16.0); Hypochromasia Marked; Lymphocytes # (A) 0.6 k/uL (1.0-4.8); Lymphocytes % (A) 4 %; MCH 28.1 pg (25.0-35.0); MCHC 30.9 g/dL (31.0-37.0); Macrocytosis Slight; Mean Platelet Volume 6.5; Monocytes # (A) 0.3 k/uL (0-1.0); Monocytes % (A) 2 %; Neutrophils # (A) 13.2 k/uL (1.3-7.7); Neutrophils % (A) 93 %; Platelet Count 456 k/uL (150-450); RBC 2.52 m/uL (3.80-5.40); RDW 21.5 % (11.5-15.5); WBC 14.1 k/uL (3.8-10.6)
[2018-01-27] MEDS: PANTOPRAZOLE 40 MG TABLET PO SCH (06:44)
[2018-01-27] MEDS: SODIUM CHLORIDE 0.9% 1,000 ML IV SCH ×2 (06:44→23:31)
[2018-01-27] MEDS: methylPREDNISolone SOD SUCCI 125 MG/2 ML VIAL IV SCH ×4 (06:44→23:29)
[2018-01-27] MEDS: VANCOMYCIN 1,000 MG in SODIUM CHLORIDE 0.9% 250 ML IVPB SCH (06:44)
[2018-01-27 07:00] LABS: Calcium 8.5 mg/dL (8.4-10.2); Potassium 5.4 mmol/L (3.5-5.1)
[2018-01-27] MEDS: PIPERACILLIN-TAZOBACTAM 3.375 GM in DEXTROSE/WATER 1 50ML.BAG IVPB SCH ×3 (08:31→23:31)
[2018-01-27] MEDS: HEPARIN SODIUM,PORCINE 5,000 UNIT/ML 1 ML VIAL SQ SCH ×3 (08:32→23:34)
[2018-01-27] MEDS: CHOLECALCIFEROL 1,000 UNIT TAB PO SCH (08:32)
[2018-01-27] MEDS: FLUTICASONE 50MCG/SPRAY NASAL 16GM EA NOSTRIL SCH (08:32)
[2018-01-27] MEDS: MELOXICAM 7.5 MG TAB PO SCH (08:33)
[2018-01-27] MEDS: METOPROLOL TARTRATE 50 MG TAB PO SCH ×2 (08:35→21:39)
[2018-01-27] MEDS: NYSTATIN 100,000 UNIT/ML SUSP 500,000 UNIT/5 ML CUP PO SCH ×4 (08:35→21:22)
[2018-01-27] MEDS: PSYLLIUM HUSK 100% 6 GM PACKET PO SCH (08:39)
[2018-01-27] MEDS: FORMOTEROL FUMARATE 20 MCG/2 ML NEBU INHALATION SCH ×2 (08:58→20:41)
[2018-01-27] MEDS: IPRATROPIUM-ALBUTEROL 3 ML NEB INHALATION SCH ×4 (08:59→20:41)
[2018-01-27] MEDS: BUDESONIDE 0.5 MG/2 ML NEBU INHALATION SCH ×2 (08:59→20:41)
--- NOTE | 2018-01-27 10:38 | P.PN ---
Subjective Progress Note Date: 01/27/18 Principal diagnosis: Shortness of breath, fever This is a pleasant 82-year-old female with past medical history significant for COPD, chronic respiratory failure on home O2 who was recently in the hospital for pneumonia and COPD exacerbation. She presented back to the hospital on this occasion with symptoms of shortness of breath with associated fever and wheezing. Patient was noted to have mild abnormality in her cardiac enzymes, she denied any associated chest discomfort, could be secondary to supply and demand mismatch. At the time of my examination this morning, she denies any chest discomfort, breathing is overall stable however she continues to have a significant amount of wheezing. Blood pressure 130/70, heart rate in the 80s, afebrile this morning, 94% on 4 L of oxygen. White blood cell count 14.1, hemoglobin 7.1, platelet count 456. Sodium 140, potassium 5.4, BUN 26, creatinine 1.1. Echocardiogram with Doppler study was performed which revealed a normal left ventricular systolic function. Objective - Vital Signs Vital signs: Vital Signs Temp 97 F L 01/27/18 08:00 Pulse 88 01/27/18 09:18 Resp 18 01/27/18 08:00 BP 130/70 01/27/18 08:00 Pulse Ox 94 L 01/27/18 08:00 Intake & Output 01/26/18 01/27/18 01/27/18 18:59 06:59 18:59 Intake Total 935 120 Balance 935 120 Weight 57 kg Intake: Intake, IV Titration 525 Amount Piperacillin-Tazobactam 3 50 .375 gm In Dextrose/Water 1 50ml.bag @ 12.5 mls/hr IVPB Q8HR LIANG Rx#: [id number] Sodium Chloride 0.9% 1, 350 000 ml @ 50 mls/hr IV . Q20H LIANG Rx#:[id number] Vancomycin 1,000 mg In 125 Sodium Chloride 0.9% 250 ml @ 125 mls/hr IVPB Q24H LIANG Rx#:[id number] Oral 410 120 Other: Voiding Method Diaper # Voids 2 2 1 # Bowel Movements 1 1 - Exam PHYSICAL EXAMINATION: HEENT: Head is atraumatic, normocephalic. Pupils equal, round. Neck is supple. There is no elevated jugular venous pressure. HEART EXAMINATION: Heart S1, S2 normal. No murmur or gallop heard. CHEST EXAMINATION: Lungs reveal decreased air exchange with scattered coarse wheezing throughout. ABDOMEN: Soft, nontender. Bowel sounds are heard. No organomegaly noted. EXTREMITIES: 2+ peripheral pulses with no evidence of peripheral edema and no calf tenderness noted. NEUROLOGIC patient is awake, alert and oriented -3. . - Labs CBC & Chem 7: 01/27/18 05:59 01/27/18 05:59 Labs: Abnormal Lab Results - Last 24 Hours (Table) 01/26/18 01/26/18 01/26/18 Range/Units 12:12 17:05 21:02 WBC (3.8-10.6) k/uL RBC (3.80-5.40) m/uL Hgb (11.4-16.0) gm/dL Hct (34.0-46.0) % MCHC (31.0-37.0) g/dL RDW (11.5-15.5) % Plt Count (150-450) k/uL Neutrophils # (1.3-7.7) k/uL Lymphocytes # (1.0-4.8) k/uL Potassium (3.5-5.1) mmol/L Chloride (98-107) mmol/L BUN (7-17) mg/dL Creatinine (0.52-1.04) mg/dL Glucose (74-99) mg/dL POC Glucose (mg/dL) 157 H 134 H 150 H (75-99) mg/dL 01/27/18 01/27/18 01/27/18 Range/Units 05:46 05:59 05:59 WBC 14.1 H (3.8-10.6) k/uL RBC 2.52 L (3.80-5.40) m/uL Hgb 7.1 L (11.4-16.0) gm/dL Hct 22.9 L (34.0-46.0) % MCHC 30.9 L (31.0-37.0) g/dL RDW 21.5 H (11.5-15.5) % Plt Count 456 H (150-450) k/uL Neutrophils # 13.2 H (1.3-7.7) k/uL Lymphocytes # 0.6 L (1.0-4.8) k/uL Potassium 5.4 H (3.5-5.1) mmol/L Chloride 109 H (98-107) mmol/L BUN 26 H (7-17) mg/dL Creatinine 1.11 H (0.52-1.04) mg/dL Glucose 110 H (74-99) mg/dL POC Glucose (mg/dL) 127 H (75-99) mg/dL Microbiology - Last 24 Hours (Table) 01/25/18 00:00 Blood Culture - Preliminary Blood No Growth after 48 hours 01/25/18 19:18 Gram Stain - Preliminary Sputum Sputum Culture - Preliminary Presumptive Staph aureus Assessment and Plan Plan: Assessment and plan #1 respiratory failure likely secondary to COPD exacerbation and possible upper respiratory infection. Influenza A and B were negative. #2 mild abnormality and cardiac enzymes, not consistent with acute coronary syndrome, likely secondary to supply and demand mismatch. #3 sinus tachycardia, heart rate this morning in the 80s. #4 hyperlipidemia Plan From cardiology's perspective, we'll continue the patient on her current medication she is on at this time. Once her respiratory infection and exacerbation of COPD settle, she may benefit from a stress test as an outpatient. At this time we will continue her current dose of metoprolol along with her other medications. DNP note has been reviewed, I agree with a documented findings and plan of care. Patient was seen and examined.
[2018-01-27] MEDS ORDERED: SODIUM POLYSTYRENE SULFONATE 15 GM/60 ML BOTTLE PO ONE (11:28)
[2018-01-27 11:56] LABS: Glucose,Whole Blood 122 mg/dL (75-99)
[2018-01-27] MEDS: MULTIVITAMINS, THERA 1 EACH TAB PO SCH (11:57)
[2018-01-27 16:47] LABS: Glucose,Whole Blood 161 mg/dL (75-99)
--- NOTE | 2018-01-27 17:25 | P.PN ---
Subjective Progress Note Date: 01/26/18 (Late entry note) Principal diagnosis: Infected lung bullous, right upper lobe thick-walled cavitary lesion, acute COPD exacerbation, mixed bacterial gram-negative pneumonia, acute on chronic hypoxic respiratory failure 01/26/2018, patient seen eval reexamined during the rounds clinically still short of breath has cough but severity is slightly improved labs reviewed medications reviewed care plan discussed with the primary service Patient is well-known to me and she is an 82-year-old female who presented emergency department complaining of cough and shortness of breath. The patient was hospitalized about 2 weeks ago with COPD and pneumonia. She states she was discharged to a longterm and began to feel worse. She states she had fevers and chills. She is also complaining of fatigue. She states she has a cough which is nonproductive. She has a known history of COPD and does wear oxygen at baseline. She has a right upper lobe large cavitary lesion which was initially thin-walled and suggestive of infective malaise being monitored and observed for last several years patient is not a candidate for transbronchial lung biopsy or transthoracic lung biopsy due to high risk of lung collapse patient was recommended to be evaluated due to history of [facility] in addition recently patient has been found to have significant pulmonary hypertension as well. The patient is also complaining of a sore throat and hoarse voice. Objective - Vital Signs Vital signs: Vital Signs Temp 97.5 F L 01/27/18 12:00 Pulse 84 01/27/18 16:04 Resp 20 01/27/18 12:00 BP 126/74 01/27/18 12:00 Pulse Ox 95 01/27/18 12:00 Intake & Output 01/26/18 01/27/18 01/27/18 18:59 06:59 18:59 Intake Total 935 120 Balance 935 120 Weight 57 kg Intake: Intake, IV Titration 525 Amount Piperacillin-Tazobactam 3 50 .375 gm In Dextrose/Water 1 50ml.bag @ 12.5 mls/hr IVPB Q8HR LIANG Rx#: [id number] Sodium Chloride 0.9% 1, 350 000 ml @ 50 mls/hr IV . Q20H LIANG Rx#:[id number] Vancomycin 1,000 mg In 125 Sodium Chloride 0.9% 250 ml @ 125 mls/hr IVPB Q24H LIANG Rx#:[id number] Oral 410 120 Other: Voiding Method Diaper Diaper # Voids 2 2 1 # Bowel Movements 1 1 - Exam Gen.: Patient is alert and oriented 3, no acute distress Neck is supple no significant lymphadenopathy is present no thyromegaly The prominent but no significant jugular venous distention is present, no carotid bruits present Cardiovascular: Regular rate and rhythm, S1/S2 Lungs: Diminished breath sounds bilaterally Abdomen: Soft nontender nondistended positive bowel sounds Extremities: No edema 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 opens eyes follow simple commands no obvious distress present moving all 4 extremity - Labs CBC & Chem 7: 01/27/18 05:59 01/27/18 05:59 Labs: Abnormal Lab Results - Last 24 Hours (Table) 01/26/18 01/26/18 01/27/18 Range/Units 17:05 21:02 05:46 WBC (3.8-10.6) k/uL RBC (3.80-5.40) m/uL Hgb (11.4-16.0) gm/dL Hct (34.0-46.0) % MCHC (31.0-37.0) g/dL RDW (11.5-15.5) % Plt Count (150-450) k/uL Neutrophils # (1.3-7.7) k/uL Lymphocytes # (1.0-4.8) k/uL Potassium (3.5-5.1) mmol/L Chloride (98-107) mmol/L BUN (7-17) mg/dL Creatinine (0.52-1.04) mg/dL Glucose (74-99) mg/dL POC Glucose (mg/dL) 134 H 150 H 127 H (75-99) mg/dL 01/27/18 01/27/18 01/27/18 Range/Units 05:59 05:59 11:50 WBC 14.1 H (3.8-10.6) k/uL RBC 2.52 L (3.80-5.40) m/uL Hgb 7.1 L (11.4-16.0) gm/dL Hct 22.9 L (34.0-46.0) % MCHC 30.9 L (31.0-37.0) g/dL RDW 21.5 H (11.5-15.5) % Plt Count 456 H (150-450) k/uL Neutrophils # 13.2 H (1.3-7.7) k/uL Lymphocytes # 0.6 L (1.0-4.8) k/uL Potassium 5.4 H (3.5-5.1) mmol/L Chloride 109 H (98-107) mmol/L BUN 26 H (7-17) mg/dL Creatinine 1.11 H (0.52-1.04) mg/dL Glucose 110 H (74-99) mg/dL POC Glucose (mg/dL) 122 H (75-99) mg/dL 01/27/18 Range/Units 16:43 WBC (3.8-10.6) k/uL RBC (3.80-5.40) m/uL Hgb (11.4-16.0) gm/dL Hct (34.0-46.0) % MCHC (31.0-37.0) g/dL RDW (11.5-15.5) % Plt Count (150-450) k/uL Neutrophils # (1.3-7.7) k/uL Lymphocytes # (1.0-4.8) k/uL Potassium (3.5-5.1) mmol/L Chloride (98-107) mmol/L BUN (7-17) mg/dL Creatinine (0.52-1.04) mg/dL Glucose (74-99) mg/dL POC Glucose (mg/dL) 161 H (75-99) mg/dL Microbiology - Last 24 Hours (Table) 01/25/18 00:00 Blood Culture - Preliminary Blood No Growth after 48 hours 01/25/18 19:18 Gram Stain - Preliminary Sputum Sputum Culture - Preliminary Presumptive Staph aureus Assessment and Plan Assessment: Acute on chronic hypoxic respiratory failure Acute exacerbation of COPD/emphysema Healthcare associated pneumonia cannot be excluded Right upper lobe cavitary lesion, likely infected bullous however occult new process neoplastic process cannot be excluded SIRS, and developed sepsis Non-ST segment elevated [place] Pulmonary hypertension, 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
--- NOTE | 2018-01-27 17:28 | P.PN ---
Subjective Progress Note Date: 01/27/18 Principal diagnosis: Infected lung bullous, right upper lobe thick-walled cavitary lesion, acute COPD exacerbation, mixed bacterial gram-negative pneumonia, acute on chronic hypoxic respiratory failure 01/27/2018, patient seen eval reexamined during the rounds clinically doing well but still get short of breath cough and wheezing is still present patient being treated with broad-spectrum antibiotics breathing treatments steroids, labs reviewed medications reviewed him a sputum is positive for many colonies of staph patient remains on IV Zosyn and vancomycin 01/26/2018, patient seen eval reexamined during the rounds clinically still short of breath has cough but severity is slightly improved labs reviewed medications reviewed care plan discussed with the primary service Patient is well-known to me and she is an 82-year-old female who presented emergency department complaining of cough and shortness of breath. The patient was hospitalized about 2 weeks ago with COPD and pneumonia. She states she was discharged to a skilled nursing and began to feel worse. She states she had fevers and chills. She is also complaining of fatigue. She states she has a cough which is nonproductive. She has a known history of COPD and does wear oxygen at baseline. She has a right upper lobe large cavitary lesion which was initially thin-walled and suggestive of infective malaise being monitored and observed for last several years patient is not a candidate for transbronchial lung biopsy or transthoracic lung biopsy due to high risk of lung collapse patient was recommended to be evaluated due to history of [facility] in addition recently patient has been found to have significant pulmonary hypertension as well. The patient is also complaining of a sore throat and hoarse voice. Objective - Vital Signs Vital signs: Vital Signs Temp 97.5 F L 01/27/18 12:00 Pulse 84 01/27/18 16:04 Resp 20 01/27/18 12:00 BP 126/74 01/27/18 12:00 Pulse Ox 95 01/27/18 12:00 Intake & Output 01/26/18 01/27/18 01/27/18 18:59 06:59 18:59 Intake Total 935 120 Balance 935 120 Weight 57 kg Intake: Intake, IV Titration 525 Amount Piperacillin-Tazobactam 3 50 .375 gm In Dextrose/Water 1 50ml.bag @ 12.5 mls/hr IVPB Q8HR [facility] Rx#: [id number] Sodium Chloride 0.9% 1, 350 000 ml @ 50 mls/hr IV . Q20H [facility] Rx#:[id number] Vancomycin 1,000 mg In 125 Sodium Chloride 0.9% 250 ml @ 125 mls/hr IVPB Q24H [facility] Rx#:[id number] Oral 410 120 Other: Voiding Method Diaper Diaper # Voids 2 2 1 # Bowel Movements 1 1 - Exam Gen.: Patient is alert and oriented 3, no acute distress Neck is supple no significant lymphadenopathy is present no thyromegaly The prominent but no significant jugular venous distention is present, no carotid bruits present Cardiovascular: Regular rate and rhythm, S1/S2 Lungs: Diminished breath sounds bilaterally Abdomen: Soft nontender nondistended positive bowel sounds Extremities: No edema [employer] awake and alert opens eyes follow simple commands no obvious distress present moving all 4 extremity - Labs CBC & Chem 7: 01/27/18 05:59 01/27/18 05:59 Labs: Abnormal Lab Results - Last 24 Hours (Table) 01/26/18 01/26/18 01/27/18 Range/Units 17:05 21:02 05:46 WBC (3.8-10.6) k/uL RBC (3.80-5.40) m/uL Hgb (11.4-16.0) gm/dL Hct (34.0-46.0) % MCHC (31.0-37.0) g/dL RDW (11.5-15.5) % Plt Count (150-450) k/uL Neutrophils # (1.3-7.7) k/uL Lymphocytes # (1.0-4.8) k/uL Potassium (3.5-5.1) mmol/L Chloride (98-107) mmol/L BUN (7-17) mg/dL Creatinine (0.52-1.04) mg/dL Glucose (74-99) mg/dL POC Glucose (mg/dL) 134 H 150 H 127 H (75-99) mg/dL 01/27/18 01/27/18 01/27/18 Range/Units 05:59 05:59 11:50 WBC 14.1 H (3.8-10.6) k/uL RBC 2.52 L (3.80-5.40) m/uL Hgb 7.1 L (11.4-16.0) gm/dL Hct 22.9 L (34.0-46.0) % MCHC 30.9 L (31.0-37.0) g/dL RDW 21.5 H (11.5-15.5) % Plt Count 456 H (150-450) k/uL Neutrophils # 13.2 H (1.3-7.7) k/uL Lymphocytes # 0.6 L (1.0-4.8) k/uL Potassium 5.4 H (3.5-5.1) mmol/L Chloride 109 H (98-107) mmol/L BUN 26 H (7-17) mg/dL Creatinine 1.11 H (0.52-1.04) mg/dL Glucose 110 H (74-99) mg/dL POC Glucose (mg/dL) 122 H (75-99) mg/dL 01/27/18 Range/Units 16:43 WBC (3.8-10.6) k/uL RBC (3.80-5.40) m/uL Hgb (11.4-16.0) gm/dL Hct (34.0-46.0) % MCHC (31.0-37.0) g/dL RDW (11.5-15.5) % Plt Count (150-450) k/uL Neutrophils # (1.3-7.7) k/uL Lymphocytes # (1.0-4.8) k/uL Potassium (3.5-5.1) mmol/L Chloride (98-107) mmol/L BUN (7-17) mg/dL Creatinine (0.52-1.04) mg/dL Glucose (74-99) mg/dL POC Glucose (mg/dL) 161 H (75-99) mg/dL Microbiology - Last 24 Hours (Table) 01/25/18 00:00 Blood Culture - Preliminary Blood No Growth after 48 hours 01/25/18 19:18 Gram Stain - Preliminary Sputum Sputum Culture - Preliminary Presumptive Staph aureus Assessment and Plan Assessment: Staphylococcus aureus pneumonia final ID and sensitivity however is pending Acute on chronic hypoxic respiratory failure Acute exacerbation of COPD/emphysema Healthcare associated pneumonia cannot be excluded Right upper lobe cavitary lesion, likely infected bullous however occult new process neoplastic process cannot be excluded SIRS, and developed sepsis Non-ST segment elevated [place] Pulmonary hypertension, 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 Generalized weakness GERD Dyslipidemia Rheumatoid arthritis 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
[2018-01-27 20:44] LABS: Glucose,Whole Blood 130 mg/dL (75-99)
[2018-01-27] MEDS: FOLIC ACID 1 MG TAB PO SCH (21:22)
[2018-01-27] MEDS: ASPIRIN 81 MG PO SCH (21:22)
[2018-01-27] MEDS: ATORVASTATIN 40 MG TAB PO SCH (21:22)
[2018-01-27] MEDS: MONTELUKAST 10 MG TAB PO SCH (21:22)
--- NOTE | 2018-01-27 22:25 | P.PN ---
Subjective Progress Note Date: 01/27/18 Principal diagnosis: Shortness of breath 82-year-old female presents to Hospital with the significant worsening of her underlying shortness of breath cough or sputum production. Was recently hospitalized the readmitted with worsening shortness of breath. Was developed by Dr. Carter is being picked up on service. The patient relates that she feels slightly better today. But not significantly so. However certainly is not worse. She is denying difficulties such as fevers or chills but has shortness of breath cough and sputum production that is above her baseline. She has no hemoptysis. She is very weak. Objective - Vital Signs Vital signs: Vital Signs Temp 97.9 F 01/27/18 20:00 Pulse 84 01/27/18 21:10 Resp 16 01/27/18 20:00 BP 148/75 01/27/18 20:00 Pulse Ox 94 L 01/27/18 20:00 Intake & Output 01/27/18 01/27/18 01/28/18 06:59 18:59 06:59 Intake Total 360 Balance 360 Weight 57 kg Intake: Oral 360 Other: Voiding Method Diaper Diaper # Voids 2 1 1 # Bowel Movements 1 1 - Exam 82-year-old woman who is comfortable but dyspneic at rest HEENT: Anicteric conjunctiva are pink and moist nasal mucosa grossly intact without significant lesions, there is no thrush. Neck: The neck is supple without significant lymphadenopathy or thyromegaly. Lungs: There is symmetrical air entry with expiratory wheezes that are scattered she has few crackles in the bases but no distinct bronchial sounds no dullness or egophony is seen Heart: Irregular with an audible S1 and S2 no S3 soft S4 There is no significant murmur click or rub, PMI was nondisplaced. Abdomen: Positive bowel sounds soft and nontender without palpable masses or organomegaly. There was no guarding or rebound. Extremities: The upper extremities have excellent pulses they are symmetric, no significant petechiae or telangiectasia. No splinter hemorrhages were noted. The lower extremities are free from significant edema. The peripheral pulses were 2+ and symmetric. Neuro: Awake alert oriented to person place and time. There are no acute new gross focal sensory motor deficits. - Labs CBC & Chem 7: 01/27/18 05:59 01/27/18 05:59 Labs: Abnormal Lab Results - Last 24 Hours (Table) 01/27/18 01/27/18 01/27/18 Range/Units 05:46 05:59 05:59 WBC 14.1 H (3.8-10.6) k/uL RBC 2.52 L (3.80-5.40) m/uL Hgb 7.1 L (11.4-16.0) gm/dL Hct 22.9 L (34.0-46.0) % MCHC 30.9 L (31.0-37.0) g/dL RDW 21.5 H (11.5-15.5) % Plt Count 456 H (150-450) k/uL Neutrophils # 13.2 H (1.3-7.7) k/uL Lymphocytes # 0.6 L (1.0-4.8) k/uL Potassium 5.4 H (3.5-5.1) mmol/L Chloride 109 H (98-107) mmol/L BUN 26 H (7-17) mg/dL Creatinine 1.11 H (0.52-1.04) mg/dL Glucose 110 H (74-99) mg/dL POC Glucose (mg/dL) 127 H (75-99) mg/dL 01/27/18 01/27/18 01/27/18 Range/Units 11:50 16:43 20:31 WBC (3.8-10.6) k/uL RBC (3.80-5.40) m/uL Hgb (11.4-16.0) gm/dL Hct (34.0-46.0) % MCHC (31.0-37.0) g/dL RDW (11.5-15.5) % Plt Count (150-450) k/uL Neutrophils # (1.3-7.7) k/uL Lymphocytes # (1.0-4.8) k/uL Potassium (3.5-5.1) mmol/L Chloride (98-107) mmol/L BUN (7-17) mg/dL Creatinine (0.52-1.04) mg/dL Glucose (74-99) mg/dL POC Glucose (mg/dL) 122 H 161 H 130 H (75-99) mg/dL Microbiology - Last 24 Hours (Table) 01/25/18 00:00 Blood Culture - Preliminary Blood No Growth after 48 hours Assessment and Plan (1) Healthcare associated bacterial pneumonia Narrative/Plan: 82-year-old female with a history of bullous emphysema with significant cavitation there has been noticed for several years recently was having some worsening of her underlying lung disease. She now presents with severe shortness of breath cough and sputum production. There is pulmonary edema that she likely has a staphylococcal pneumonia. Consequently broad- spectrum antibiotic therapy is being utilized with Zosyn and vancomycin until we have further data. We'll try to tailor antibiotic therapy as soon as reasonable based on the culture. Likely require intravenous antibiotic therapy at the time of her transfer back to [facility] and will need IV access in the near future. Negative blood cultures so far. Leukocytosis is quite similar to recent. Current Visit: Yes Status: Acute Code(s): J15.9 - UNSPECIFIED BACTERIAL PNEUMONIA SNOMED Code(s): 664290224 (2) Bullous emphysema Current Visit: No Status: Acute Code(s): J43.9 - EMPHYSEMA, UNSPECIFIED SNOMED Code(s): 530188162 (3) Weakness Current Visit: No Status: Acute Code(s): R53.1 - WEAKNESS SNOMED Code(s): 68650940
[2018-01-28] MEDS: VANCOMYCIN 1,000 MG in SODIUM CHLORIDE 0.9% 250 ML IVPB SCH (06:43)
[2018-01-28] MEDS: methylPREDNISolone SOD SUCCI 125 MG/2 ML VIAL IV SCH ×2 (06:44→12:46)
[2018-01-28 06:59] LABS: Glucose,Whole Blood 110 mg/dL (75-99)
[2018-01-28] MEDS: BUDESONIDE 0.5 MG/2 ML NEBU INHALATION SCH ×2 (08:01→20:22)
[2018-01-28] MEDS: IPRATROPIUM-ALBUTEROL 3 ML NEB INHALATION SCH ×4 (08:03→20:22)
[2018-01-28] MEDS: FORMOTEROL FUMARATE 20 MCG/2 ML NEBU INHALATION SCH ×2 (08:03→20:22)
[2018-01-28] MEDS: PANTOPRAZOLE 40 MG TABLET PO SCH (08:17)
[2018-01-28] MEDS: MELOXICAM 7.5 MG TAB PO SCH (08:17)
[2018-01-28] MEDS: HEPARIN SODIUM,PORCINE 5,000 UNIT/ML 1 ML VIAL SQ SCH ×3 (08:17→23:59)
[2018-01-28] MEDS: PSYLLIUM HUSK 100% 6 GM PACKET PO SCH (08:17)
[2018-01-28] MEDS: METOPROLOL TARTRATE 50 MG TAB PO SCH ×2 (08:17→20:07)
[2018-01-28] MEDS: NYSTATIN 100,000 UNIT/ML SUSP 500,000 UNIT/5 ML CUP PO SCH ×4 (08:17→20:47)
[2018-01-28 08:18] LABS: Anisocytosis Moderate; Basophils % (A) 0 %; Eosinophils % (A) 0 %; HCT 23.8 % (34.0-46.0); HGB 7.1 gm/dL (11.4-16.0); Hypochromasia Marked; Lymphocytes # (A) 0.8 k/uL (1.0-4.8); Lymphocytes % (A) 7 %; MCH 27.1 pg (25.0-35.0); MCV 90.4 fL (80.0-100.0); Macrocytosis Slight; Mean Platelet Volume 6.9; Monocytes # (A) 0.3 k/uL (0-1.0); Monocytes % (A) 3 %; Neutrophils # (A) 10.7 k/uL (1.3-7.7); Neutrophils % (A) 91 %; Platelet Count 423 k/uL (150-450); RBC 2.63 m/uL (3.80-5.40); RDW 22.1 % (11.5-15.5); WBC 11.9 k/uL (3.8-10.6)
[2018-01-28] MEDS: CHOLECALCIFEROL 1,000 UNIT TAB PO SCH (08:18)
[2018-01-28] MEDS: INSULIN ASPART 100 UNIT/ML 1 ML 10 ML VIAL SQ SCH ×4 (08:18→20:44)
[2018-01-28] MEDS: FLUTICASONE 50MCG/SPRAY NASAL 16GM EA NOSTRIL SCH (08:18)
[2018-01-28 08:27] LABS: Calcium 7.9 mg/dL (8.4-10.2); Potassium 4.8 mmol/L (3.5-5.1)
[2018-01-28] MEDS: PIPERACILLIN-TAZOBACTAM 3.375 GM in DEXTROSE/WATER 1 50ML.BAG IVPB SCH (09:06)
[2018-01-28 11:54] LABS: Glucose,Whole Blood 117 mg/dL (75-99)
[2018-01-28] MEDS: carBAMazepine 100 MG TAB.ER.12H PO SCH ×2 (12:46→23:59)
[2018-01-28] MEDS: MULTIVITAMINS, THERA 1 EACH TAB PO SCH (12:46)
[2018-01-28] MEDS: LINEZOLID 600 MG TAB PO SCH ×2 (12:46→20:07)
--- NOTE | 2018-01-28 13:11 | P.PN ---
Subjective Progress Note Date: 01/28/18 Principal diagnosis: Infected lung bullous, right upper lobe thick-walled cavitary lesion, acute COPD exacerbation, mixed bacterial gram-negative pneumonia, acute on chronic hypoxic respiratory failure 01/28/2018, patient seen eval reexamined during the rounds clinically overall not much change is still get short of breath but severity has improved as cough and congestion her sputum is positive for MRSA and has been switched to Zyvox ID service is following this patient as well from respiratory standpoint remains on breathing treatment breathing exercises incentive spirometry will start tapering down the steroids, care plan discussed with the primary service 01/27/2018, patient seen eval reexamined during the rounds clinically doing well but still get short of breath cough and wheezing is still present patient being treated with broad-spectrum antibiotics breathing treatments steroids, labs reviewed medications reviewed him a sputum is positive for many colonies of staph patient remains on IV Zosyn and vancomycin 01/26/2018, patient seen eval reexamined during the rounds clinically still short of breath has cough but severity is slightly improved labs reviewed medications reviewed care plan discussed with the primary service Patient is well-known to me and she is an 82-year-old female who presented emergency department complaining of cough and shortness of breath. The patient was hospitalized about 2 weeks ago with COPD and pneumonia. She states she was [facility] to a [facility] and began to feel worse. She states she had fevers and chills. She is also complaining of fatigue. She states she has a cough which is nonproductive. She has a known history of COPD and does wear oxygen at baseline. She has a right upper lobe large cavitary lesion which was initially thin-walled and suggestive of infective malaise being monitored and observed for last several years patient is not a candidate for transbronchial lung biopsy or transthoracic lung biopsy due to high risk of lung collapse patient was recommended to be evaluated due to history of [facility] in addition recently patient has been found to have significant pulmonary hypertension as well. The patient is also complaining of a sore throat and hoarse voice. Objective - Vital Signs Vital signs: Vital Signs Temp 97.2 F L 01/28/18 06:29 Pulse 88 01/28/18 11:34 Resp 16 01/28/18 06:29 BP 142/81 01/28/18 06:29 Pulse Ox 95 01/28/18 08:03 Intake & Output 01/27/18 01/28/18 01/28/18 18:59 06:59 18:59 Intake Total 360 300 Balance 360 300 Intake: Oral 360 300 Other: Voiding Method Diaper Diaper # Voids 1 3 # Bowel Movements 1 - Exam Gen.: Patient is alert and oriented 3, no acute distress Neck is supple no significant lymphadenopathy is present no thyromegaly The prominent but no significant jugular venous distention is present, no carotid bruits present Cardiovascular: Regular rate and rhythm, S1/S2 Lungs: Diminished breath sounds bilaterally Abdomen: Soft nontender nondistended positive bowel sounds Extremities: No edema ONCOLOGY REP awake and alert opens eyes follow simple commands no obvious distress present moving all 4 extremity - Labs CBC & Chem 7: 01/28/18 07:54 01/28/18 07:54 Labs: Abnormal Lab Results - Last 24 Hours (Table) 01/27/18 01/27/18 01/28/18 Range/Units 16:43 20:31 06:56 WBC (3.8-10.6) k/uL RBC (3.80-5.40) m/uL Hgb (11.4-16.0) gm/dL Hct (34.0-46.0) % MCHC (31.0-37.0) g/dL RDW (11.5-15.5) % Neutrophils # (1.3-7.7) k/uL Lymphocytes # (1.0-4.8) k/uL Chloride (98-107) mmol/L BUN (7-17) mg/dL Creatinine (0.52-1.04) mg/dL POC Glucose (mg/dL) 161 H 130 H 110 H (75-99) mg/dL Calcium (8.4-10.2) mg/dL 01/28/18 01/28/18 01/28/18 Range/Units 07:54 07:54 11:52 WBC 11.9 H (3.8-10.6) k/uL RBC 2.63 L (3.80-5.40) m/uL Hgb 7.1 L (11.4-16.0) gm/dL Hct 23.8 L (34.0-46.0) % MCHC 30.0 L (31.0-37.0) g/dL RDW 22.1 H (11.5-15.5) % Neutrophils # 10.7 H (1.3-7.7) k/uL Lymphocytes # 0.8 L (1.0-4.8) k/uL Chloride 109 H (98-107) mmol/L BUN 29 H (7-17) mg/dL Creatinine 1.09 H (0.52-1.04) mg/dL POC Glucose (mg/dL) 117 H (75-99) mg/dL Calcium 7.9 L (8.4-10.2) mg/dL Microbiology - Last 24 Hours (Table) 01/25/18 19:18 Gram Stain - Final Sputum Sputum Culture - Final Methicillin resist S. 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
--- NOTE | 2018-01-28 15:56 | CDI ---
Last Revision, September 2017 Documentation Clarification Form Date: 01/28/18 155 From: Sherrell Kent RN, CCDS Admit Date: 01/25/2018 12:46:00 AM Patient Name: Karen Jordan Visit Number: [id number] ATTENTION: The Clinical Documentation Specialists (CDI) and [facility] Coding Staff appreciate your assistance in clarifying documentation. Please respond to the clarification below the line at the bottom and electronically sign. The CDI & [facility] Coding staff will review the response and follow-up if needed. Please note: Queries are made part of the Legal Health Record. If you have any questions, please contact the author of this message via ITS. Dr. Reddy Mora A diagnosis of anemia lacks specificity to accurately reflect your patients severity of condition and clarification is needed. History/Risk Factors: Anemia, chronic hypoxemic respiratory failure Clinical indicators: 01/26 Attending Progress Note: "normocytic anemia" Hemoglobin: 8.5/7.5/7.1/7.1 Hematocrit:27/23.9/22.9/23.8 Treatment: labs am daily In order to capture the severity of condition, please clarify the type of anemia and etiology if known: Chronic blood loss anemia Iron deficiency anemia Anemia due to malignancy Nutritional anemia Anemia of chronic kidney disease Unable to determine Other, please specify Please continue to document in your progress notes and discharge summary in order to capture severity of illness and risk of mortality. Include clinical findings that support your diagnosis. MTDD
[2018-01-28] MEDS: SODIUM CHLORIDE 0.9% 1,000 ML IV SCH (16:39)
[2018-01-28 17:17] LABS: Glucose,Whole Blood 162 mg/dL (75-99)
[2018-01-28] MEDS: methylPREDNISolone SOD SUCCI 40 MG/ML 1 ML VIAL IV SCH (20:07)
[2018-01-28] MEDS: MONTELUKAST 10 MG TAB PO SCH (20:08)
[2018-01-28] MEDS: ASPIRIN 81 MG PO SCH (20:08)
[2018-01-28] MEDS: ATORVASTATIN 40 MG TAB PO SCH (20:08)
[2018-01-28] MEDS: FOLIC ACID 1 MG TAB PO SCH (20:08)
[2018-01-28] MEDS: ALPRAZolam 0.25 MG TAB PO PRN (20:17)
--- NOTE | 2018-01-28 20:37 | P.PN ---
Subjective Progress Note Date: 01/28/18 Principal diagnosis: Shortness of breath 82-year-old female presents to Hospital with the significant worsening of her underlying shortness of breath cough or sputum production. Was recently hospitalized the readmitted with worsening shortness of breath. Was developed by Dr. Carter is being picked up on service. The patient relates that she feels slightly better today. But not significantly so. However certainly is not worse. She is denying difficulties such as fevers or chills but has shortness of breath cough and sputum production that is above her baseline. She has no hemoptysis. She is very weak. 01/28/2018 reveals the patient to still be weak. Feels slightly better than she did yesterday. She relates that she certainly is not worse. She does see not being worse as a positive. She is denying hemoptysis. Still very weak and eating poorly. Objective - Vital Signs Vital signs: Vital Signs Temp 96.8 F L 01/28/18 17:02 Pulse 78 01/28/18 17:02 Resp 20 01/28/18 19:33 BP 147/66 01/28/18 17:02 Pulse Ox 98 01/28/18 17:02 Intake & Output 01/28/18 01/28/18 01/29/18 06:59 18:59 06:59 Intake Total 300 Balance 300 Intake: Oral 300 Other: Voiding Method Diaper Bedside Commode Bedpan # Voids 3 3 # Bowel Movements 0 - Exam 82-year-old woman who is comfortable but dyspneic at rest HEENT: Anicteric conjunctiva are pink and moist nasal mucosa grossly intact without significant lesions, there is no thrush. Neck: The neck is supple without significant lymphadenopathy or thyromegaly. Lungs: There is symmetrical air entry with expiratory wheezes that are scattered she has few crackles in the bases but no distinct bronchial sounds no dullness or egophony is seen Heart: Irregular with an audible S1 and S2 no S3 soft S4 There is no significant murmur click or rub, PMI was nondisplaced. Abdomen: Positive bowel sounds soft and nontender without palpable masses or organomegaly. There was no guarding or rebound. Extremities: The upper extremities have excellent pulses they are symmetric, no significant petechiae or telangiectasia. No splinter hemorrhages were noted. The lower extremities are free from significant edema. The peripheral pulses were 2+ and symmetric. Neuro: Awake alert oriented to person place and time. There are no acute new gross focal sensory motor deficits. - Labs CBC & Chem 7: 01/28/18 07:54 01/28/18 07:54 Labs: Abnormal Lab Results - Last 24 Hours (Table) 01/27/18 01/28/18 01/28/18 Range/Units 20:31 06:56 07:54 WBC (3.8-10.6) k/uL RBC (3.80-5.40) m/uL Hgb (11.4-16.0) gm/dL Hct (34.0-46.0) % MCHC (31.0-37.0) g/dL RDW (11.5-15.5) % Neutrophils # (1.3-7.7) k/uL Lymphocytes # (1.0-4.8) k/uL Chloride 109 H (98-107) mmol/L BUN 29 H (7-17) mg/dL Creatinine 1.09 H (0.52-1.04) mg/dL POC Glucose (mg/dL) 130 H 110 H (75-99) mg/dL Calcium 7.9 L (8.4-10.2) mg/dL 01/28/18 01/28/18 01/28/18 Range/Units 07:54 11:52 17:15 WBC 11.9 H (3.8-10.6) k/uL RBC 2.63 L (3.80-5.40) m/uL Hgb 7.1 L (11.4-16.0) gm/dL Hct 23.8 L (34.0-46.0) % MCHC 30.0 L (31.0-37.0) g/dL RDW 22.1 H (11.5-15.5) % Neutrophils # 10.7 H (1.3-7.7) k/uL Lymphocytes # 0.8 L (1.0-4.8) k/uL Chloride (98-107) mmol/L BUN (7-17) mg/dL Creatinine (0.52-1.04) mg/dL POC Glucose (mg/dL) 117 H 162 H (75-99) mg/dL Calcium (8.4-10.2) mg/dL Microbiology - Last 24 Hours (Table) 01/25/18 19:18 Gram Stain - Final Sputum Sputum Culture - Final Methicillin resist S. aureus 01/25/18 00:00 Blood Culture - Preliminary Blood No Growth after 72 hours Laboratory Results WBC 11.9 k/uL (3.8-10.6) H 01/28/18 07:54 RBC 2.63 m/uL (3.80-5.40) L 01/28/18 07:54 Hgb 7.1 gm/dL (11.4-16.0) L 01/28/18 07:54 Hct 23.8 % (34.0-46.0) L 01/28/18 07:54 MCV 90.4 fL (80.0-100.0) 01/28/18 07:54 MCH 27.1 pg (25.0-35.0) 01/28/18 07:54 MCHC 30.0 g/dL (31.0-37.0) L 01/28/18 07:54 RDW 22.1 % (11.5-15.5) H 01/28/18 07:54 Plt Count 423 k/uL (150-450) 01/28/18 07:54 Neutrophils % 91 % 01/28/18 07:54 Lymphocytes % 7 % 01/28/18 07:54 Monocytes % 3 % 01/28/18 07:54 Eosinophils % 0 % 01/28/18 07:54 Basophils % 0 % 01/28/18 07:54 Neutrophils # 10.7 k/uL (1.3-7.7) H 01/28/18 07:54 Lymphocytes # 0.8 k/uL (1.0-4.8) L 01/28/18 07:54 Monocytes # 0.3 k/uL (0-1.0) 01/28/18 07:54 Eosinophils # 0.0 k/uL (0-0.7) 01/28/18 07:54 Basophils # 0.0 k/uL (0-0.2) 01/28/18 07:54 Hypochromasia Marked 01/28/18 07:54 Anisocytosis Moderate 01/28/18 07:54 Macrocytosis Slight 01/28/18 07:54 PT 10.5 sec (9.0-12.0) 01/25/18 00:00 INR 1.1 (<1.2) 01/25/18 00:00 APTT 23.9 sec (22.0-30.0) 01/25/18 00:00 Sodium 141 mmol/L (137-145) 01/28/18 07:54 Potassium 4.8 mmol/L (3.5-5.1) 01/28/18 07:54 Chloride 109 mmol/L (98-107) H 01/28/18 07:54 Carbon Dioxide 23 mmol/L (22-30) 01/28/18 07:54 Anion Gap 9 mmol/L 01/28/18 07:54 BUN 29 mg/dL (7-17) H 01/28/18 07:54 Creatinine 1.09 mg/dL (0.52-1.04) H 01/28/18 07:54 Est GFR (CKD-EPI)AfAm 54 (>60 ml/min/1.73 sqM) 01/28/18 07:54 Est GFR (CKD-EPI)NonAf 47 (>60 ml/min/1.73 sqM) 01/28/18 07:54 Glucose 99 mg/dL (74-99) 01/28/18 07:54 POC Glucose (mg/dL) 162 mg/dL (75-99) H 01/28/18 17:15 POC Glu Re Examiner HETAL Tanvi Foote 01/28/18 17:[address] Glu mg/dL 123 01/25/18 00:06 Hemoglobin A1c 5.9 % (4.0-6.0) 01/25/18 00:06 Plasma Lactic Acid Fidencio 1.8 mmol/L (0.7-2.0) 01/25/18 00:00 Calcium 7.9 mg/dL (8.4-10.2) L 01/28/18 07:54 Magnesium 2.1 mg/dL (1.6-2.3) 01/25/18 00:00 Total Bilirubin 0.3 mg/dL (0.2-1.3) 01/25/18 00:00 AST 19 U/L (14-36) 01/25/18 00:00 ALT 20 U/L (9-52) 01/25/18 00:00 Alkaline Phosphatase 81 U/L (38-126) 03/31/18 00:00 Total Creatine Kinase 41 U/L (30-135) 01/25/18 18:09 CK-MB (CK-2) 4.4 ng/mL (0.0-2.4) H* 01/25/18 18:09 CK-MB (CK-2) Rel Index 10.7 01/25/18 18:09 Troponin I 0.415 ng/mL (0.000-0.034) H* 01/25/18 18:09 NT-Pro-B Natriuret Pep 5090 pg/mL 01/25/18 00:00 Total Protein 6.4 g/dL (6.3-8.2) 01/25/18 00:00 Albumin 3.2 g/dL (3.5-5.0) L 01/25/18 00:00 Influenza Type A RNA Not Detected (Not Detectd) 01/25/18 00:05 Influenza Type B (PCR) Not Detected (Not Detectd) 01/25/18 00:05 Microbiology 01/25/18 19:18 Sputum Gram Stain - Final 01/25/18 19:18 Sputum Sputum Culture - Final Methicillin resist S. aureus 01/25/18 00:00 Blood Blood Culture - Preliminary No Growth after 72 hours Assessment and Plan (1) Healthcare associated bacterial pneumonia Narrative/Plan: 82-year-old female with a history of bullous emphysema with significant cavitation there has been noticed for several years recently was having some worsening of her underlying lung disease. She now presents with severe shortness of breath cough and sputum production. There is pulmonary edema that she likely has a staphylococcal pneumonia. Consequently broad- spectrum antibiotic therapy is being utilized with Zosyn and vancomycin until we have further data. We'll try to tailor antibiotic therapy as soon as reasonable based on the culture. Likely require intravenous antibiotic therapy at the time of her transfer back to [facility] and will need IV access in the near future. Negative blood cultures so far. Leukocytosis is quite similar to recent. 01/28/2018 reveals the patient to still be weak and is not feeling well. However she is slightly better and that she does seem to be slightly less short of breath Is related that she will be discharged home not to rehab. With her MRSA pneumonia she would need ongoing treatment however IV antibiotic therapy would not be likely possible that her home setting and she will have no ability to leave her home. Consequently Zyvox will be attempted and will be started here today to make sure she can tolerate this. Would then plan a 2 week course of this in the home setting. Current Visit: Yes Status: Acute Code(s): J15.9 - UNSPECIFIED BACTERIAL PNEUMONIA SNOMED Code(s): 137553939 (2) Bullous emphysema Current Visit: No Status: Acute Code(s): J43.9 - EMPHYSEMA, UNSPECIFIED SNOMED Code(s): 557891163 (3) Weakness Current Visit: No Status: Acute Code(s): R53.1 - WEAKNESS SNOMED Code(s): 05956864
[2018-01-28 20:43] LABS: Glucose,Whole Blood 124 mg/dL (75-99)
--- NOTE | 2018-01-28 23:34 | P.PN ---
Subjective Progress Note Date: 01/27/18 Principal diagnosis: Pneumonia/HCAP 82-year-old female patient with a past medical history significant for COPD/chronic respiratory failure on home oxygen presented to the hospital complaining of shortness of breath. Patient was febrile, tachycardic, tachypneic and leukocytosis on admission. Patient is currently being treated for pneumonia. 01/26/2018 Patient says that her breathing is better today. No complaints of chest pain. Patient has been afebrile today. Leukocytosis slightly improved. Otherwise patient is currently on vancomycin and Zosyn ID is following. Patient was seen by cardiology due to elevated troponin level. 2-D echocardiogram showed moderate to severe mitral regurgitation and severe tricuspid regurgitation. Cardiology recommended conservative management at this time. Otherwise patient is clinically slightly improved. No nausea vomiting or abdominal pain. No diarrhea. 01/27/2018 Patient's breathing status is improving slowly . Sputum cultures showed staph aureus MRSA. No fever no chills. Pulmonary is following. Otherwise no acute overnight issues All other review of systems negative except the above Active Medications Generic Name Dose Route Start Last Admin Trade Name Freq PRN Reason Stop Dose Admin Acetaminophen 650 mg 01/25/18 19:17 Tylenol Tab PO Q4H PRN Mild Pain Albuterol/Ipratropium 3 ml 01/25/18 00:40 Duoneb 0.5 Mg-3 Mg/3 Ml Soln INHALATION RT-Q4H PRN Shortness Of Breath Or Wheezing Albuterol/Ipratropium 3 ml 01/25/18 08:00 01/26/18 21:15 Duoneb 0.5 Mg-3 Mg/3 Ml Soln INHALATION 3 ml RT-QID LIANG Administration Alprazolam 0.25 mg 01/25/18 22:02 01/26/18 19:48 Xanax PO 0.25 mg TID PRN Administration Anxiety Aspirin 81 mg 01/25/18 21:00 01/26/18 19:48 Aspirin PO 81 mg HS LIANG Administration Atorvastatin Calcium 40 mg 01/25/18 21:00 01/26/18 19:48 Lipitor PO 40 mg HS LIANG Administration Benzocaine/Menthol 1 each 01/25/18 03:00 01/25/18 09:52 Cepacol Lozenge MUCOUS MEM 1 each Q4HR PRN Administration Sore Throat Budesonide 0.5 mg 01/25/18 20:00 01/26/18 21:15 Pulmicort INHALATION 0.5 mg RT-BID LIANG Administration Carbamazepine 100 mg 01/25/18 00:45 01/26/18 12:14 Tegretol Xr PO 100 mg Q12H LIANG Administration Cholecalciferol 1,000 unit 01/26/18 09:00 01/26/18 08:35 Vitamin D3 PO 1,000 unit DAILY LIANG Administration Fluticasone Propionate 2 spray 01/25/18 09:00 01/26/18 08:34 Flonase Nasal Moore EA NOSTRIL 2 spray DAILY LIANG Administration Folic Acid 1 mg 01/25/18 21:00 01/26/18 19:48 Folic Acid PO 1 mg HS LIANG Administration Formoterol Fumarate 20 mcg 01/25/18 20:00 01/26/18 21:15 Perforomist INHALATION 20 mcg RT-BID LIANG Administration Heparin Sodium (Porcine) 5,000 unit 01/25/18 16:00 01/26/18 16:58 Heparin SQ 5,000 unit Q8HR LIANG Administration Vancomycin HCl 1,000 mg/ 250 mls @ 125 mls/hr 01/26/18 06:00 01/26/18 06:57 Sodium Chloride IVPB 125 mls/hr Q24H LIANG Administration Sodium Chloride 1,000 mls @ 50 mls/hr 01/25/18 12:15 01/26/18 11:07 Saline 0.9% IV 50 mls/hr .Q20H LIANG Administration Piperacillin/Tazobactam/ 50 mls @ 12.5 mls/hr 01/25/18 16:00 01/26/18 16:58 Dextrose 3.375 gm/ IV Solution IVPB 12.5 mls/hr Q8HR LIANG Administration Insulin Aspart 0 unit 01/25/18 07:30 01/26/18 17:33 Novolog SQ Not Given ACHS [facility] Protocol Meloxicam 15 mg 01/26/18 09:00 01/26/18 08:35 Mobic PO 15 mg DAILY LIANG Administration Methotrexate 20 mg 01/31/18 09:00 Methotrexate PO FR [facility] Methylprednisolone Sodium Succinate 60 mg 01/25/18 06:00 01/26/18 16:58 Solu-Medrol IV 60 mg Q6HR LIANG Administration Metoprolol Tartrate 50 mg 01/26/18 21:00 01/26/18 19:48 Lopressor PO 50 mg BID LIANG Administration Montelukast Sodium 10 mg 01/25/18 21:00 01/26/18 19:48 Singulair PO 10 mg HS LIANG Administration Multivitamins 1 each 01/26/18 12:00 01/26/18 08:36 Theragran PO 1 each DAILY@1200 LIANG Administration Nystatin 500,000 unit 01/25/18 18:00 01/26/18 19:49 Mycostatin Oral Susp PO 500,000 unit QID LIANG Administration Pantoprazole Sodium 40 mg 01/26/18 07:30 01/26/18 06:57 Protonix PO 40 mg AC-[id number] LIANG Administration Psyllium Hydrophilic Mucilloid 6 gm 01/26/18 09:00 01/26/18 08:49 Metamucil PO Not Given DAILY LIANG Sodium Chloride 1 spray 01/25/18 19:17 [place] INTRANASAL Q4H PRN DRY NARES Objective - Vital Signs Vital signs: Vital Signs Temp 97.9 F 01/27/18 20:00 Pulse 80 01/27/18 20:42 Resp 16 01/27/18 20:00 BP 148/75 01/27/18 20:00 Pulse Ox 94 L 01/27/18 20:00 Intake & Output 01/27/18 01/27/18 01/28/18 06:59 18:59 06:59 Intake Total 360 Balance 360 Weight 57 kg Intake: Oral 360 Other: Voiding Method Diaper Diaper # Voids 2 1 1 # Bowel Movements 1 1 - Exam PHYSICAL EXAMINATION: Patient is lying in the bed comfortably, no acute distress, awake alert and oriented.. HEENT: Normocephalic. Neck is supple. Pupils reactive. Nostrils clear. Oral cavity is moist. Ears reveal no drainage. Neck reveals no JVD, carotid bruits, or thyromegaly. CHEST EXAMINATION: Trachea is central. Symmetrical expansion. Bilateral air entry improved and prolonged expiration. No wheezing or crackles CARDIAC: Normal S1, S2 with no gallops. No murmurs ABDOMEN: Soft. Bowel sounds normal. No organomegaly. No abdominal bruits. Extremities: reveal no edema. No clubbing or cyanosis Neurologically awake, alert, oriented x3 with well-coordinated movements. No focal deficits noted Skin: No rash or skin lesions. Psychiatric: Cooperative. Nonsuicidal Musculoskeletal: No joint swelling or deformity. Normal range of motion. - Labs CBC & Chem 7: 01/28/18 07:54 01/28/18 07:54 Labs: Abnormal Lab Results - Last 24 Hours (Table) 01/26/18 01/27/18 01/27/18 Range/Units 21:02 05:46 05:59 WBC (3.8-10.6) k/uL RBC (3.80-5.40) m/uL Hgb (11.4-16.0) gm/dL Hct (34.0-46.0) % MCHC (31.0-37.0) g/dL RDW (11.5-15.5) % Plt Count (150-450) k/uL Neutrophils # (1.3-7.7) k/uL Lymphocytes # (1.0-4.8) k/uL Potassium 5.4 H (3.5-5.1) mmol/L Chloride 109 H (98-107) mmol/L BUN 26 H (7-17) mg/dL Creatinine 1.11 H (0.52-1.04) mg/dL Glucose 110 H (74-99) mg/dL POC Glucose (mg/dL) 150 H 127 H (75-99) mg/dL 01/27/18 01/27/18 01/27/18 Range/Units 05:59 11:50 16:43 WBC 14.1 H (3.8-10.6) k/uL RBC 2.52 L (3.80-5.40) m/uL Hgb 7.1 L (11.4-16.0) gm/dL Hct 22.9 L (34.0-46.0) % MCHC 30.9 L (31.0-37.0) g/dL RDW 21.5 H (11.5-15.5) % Plt Count 456 H (150-450) k/uL Neutrophils # 13.2 H (1.3-7.7) k/uL Lymphocytes # 0.6 L (1.0-4.8) k/uL Potassium (3.5-5.1) mmol/L Chloride (98-107) mmol/L BUN (7-17) mg/dL Creatinine (0.52-1.04) mg/dL Glucose (74-99) mg/dL POC Glucose (mg/dL) 122 H 161 H (75-99) mg/dL 01/27/18 Range/Units 20:31 WBC (3.8-10.6) k/uL RBC (3.80-5.40) m/uL Hgb (11.4-16.0) gm/dL Hct (34.0-46.0) % MCHC (31.0-37.0) g/dL RDW (11.5-15.5) % Plt Count (150-450) k/uL Neutrophils # (1.3-7.7) k/uL Lymphocytes # (1.0-4.8) k/uL Potassium (3.5-5.1) mmol/L Chloride (98-107) mmol/L BUN (7-17) mg/dL Creatinine (0.52-1.04) mg/dL Glucose (74-99) mg/dL POC Glucose (mg/dL) 130 H (75-99) mg/dL Microbiology - Last 24 Hours (Table) 01/25/18 00:00 Blood Culture - Preliminary Blood No Growth after 48 hours Assessment and Plan Assessment: Acute COPD exacerbation and right upper lobe pneumonia/healthcare associated pneumonia. Sputum cultures showing MRSA Sepsis secondary to pneumonia Bullous lesions multiple Acute on chronic hypoxic respiratory failure secondary to pneumonia and COPD Elevated troponin level. 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 Zosyn has been discontinued. Sputum cultures sent. ID and cardiology is following. We will continue the steroids and breathing treatments and follow up closely. Continue the home medications and further recommendations based on the clinical course. Prognosis is guarded. Time with Patient: Greater than 30
--- NOTE | 2018-01-28 23:35 | P.PN ---
Subjective Progress Note Date: 01/28/18 Principal diagnosis: Pneumonia/HCAP 82-year-old female patient with a past medical history significant for COPD/chronic respiratory failure on home oxygen presented to the hospital complaining of shortness of breath. Patient was febrile, tachycardic, tachypneic and leukocytosis on admission. Patient is currently being treated for pneumonia. 01/26/2018 Patient says that her breathing is better today. No complaints of chest pain. Patient has been afebrile today. Leukocytosis slightly improved. Otherwise patient is currently on vancomycin and Zosyn ID is following. Patient was seen by cardiology due to elevated troponin level. 2-D echocardiogram showed moderate to severe mitral regurgitation and severe tricuspid regurgitation. Cardiology recommended conservative management at this time. Otherwise patient is clinically slightly improved. No nausea vomiting or abdominal pain. No diarrhea. 01/27/2018 Patient's breathing status is improving slowly . Sputum cultures showed staph aureus MRSA. No fever no chills. Pulmonary is following. Otherwise no acute overnight issues. 01/28/2018 Patient did improve symptomatically. Almost back to baseline. Antibiotics changed to linezolid as per ID recommendations. No complaints of fever or chills. No acute overnight issues. Anticipate discharged to rehab. All other review of systems negative except the above Active Medications Objective - Vital Signs Vital signs: Vital Signs Temp 96.8 F L 01/28/18 17:02 Pulse 96 01/28/18 20:54 Resp 24 01/28/18 20:00 BP 143/68 01/28/18 20:00 Pulse Ox 98 01/28/18 17:02 Intake & Output 01/28/18 01/28/18 01/29/18 06:59 18:59 06:59 Intake Total 300 Balance 300 Intake: Oral 300 Other: Voiding Method Diaper Bedside Commode Bedpan # Voids 3 3 1 # Bowel Movements 0 - Exam PHYSICAL EXAMINATION: Patient is lying in the bed comfortably, no acute distress, awake alert and oriented.. HEENT: Normocephalic. Neck is supple. Pupils reactive. Nostrils clear. Oral cavity is moist. Ears reveal no drainage. Neck reveals no JVD, carotid bruits, or thyromegaly. CHEST EXAMINATION: Trachea is central. Symmetrical expansion. Bilateral air entry improved and prolonged expiration. No wheezing or crackles CARDIAC: Normal S1, S2 with no gallops. No murmurs ABDOMEN: Soft. Bowel sounds normal. No organomegaly. No abdominal bruits. Extremities: reveal no edema. No clubbing or cyanosis Neurologically awake, alert, oriented x3 with well-coordinated movements. No focal deficits noted Skin: No rash or skin lesions. Psychiatric: Cooperative. Nonsuicidal Musculoskeletal: No joint swelling or deformity. Normal range of motion. - Labs CBC & Chem 7: 01/28/18 07:54 01/28/18 07:54 Labs: Abnormal Lab Results - Last 24 Hours (Table) 01/28/18 01/28/18 01/28/18 Range/Units 06:56 07:54 07:54 WBC 11.9 H (3.8-10.6) k/uL RBC 2.63 L (3.80-5.40) m/uL Hgb 7.1 L (11.4-16.0) gm/dL Hct 23.8 L (34.0-46.0) % MCHC 30.0 L (31.0-37.0) g/dL RDW 22.1 H (11.5-15.5) % Neutrophils # 10.7 H (1.3-7.7) k/uL Lymphocytes # 0.8 L (1.0-4.8) k/uL Chloride 109 H (98-107) mmol/L BUN 29 H (7-17) mg/dL Creatinine 1.09 H (0.52-1.04) mg/dL POC Glucose (mg/dL) 110 H (75-99) mg/dL Calcium 7.9 L (8.4-10.2) mg/dL 01/28/18 01/28/18 01/28/18 Range/Units 11:52 17:15 20:42 WBC (3.8-10.6) k/uL RBC (3.80-5.40) m/uL Hgb (11.4-16.0) gm/dL Hct (34.0-46.0) % MCHC (31.0-37.0) g/dL RDW (11.5-15.5) % Neutrophils # (1.3-7.7) k/uL Lymphocytes # (1.0-4.8) k/uL Chloride (98-107) mmol/L BUN (7-17) mg/dL Creatinine (0.52-1.04) mg/dL POC Glucose (mg/dL) 117 H 162 H 124 H (75-99) mg/dL Calcium (8.4-10.2) mg/dL Microbiology - Last 24 Hours (Table) 01/25/18 19:18 Gram Stain - Final Sputum Sputum Culture - Final Methicillin resist S. aureus 01/25/18 00:00 Blood Culture - Preliminary Blood No Growth after 72 hours Assessment and Plan Assessment: Acute COPD exacerbation and right upper lobe pneumonia/healthcare associated pneumonia. Sputum cultures showing MRSA Sepsis secondary to pneumonia Bullous lesions multiple Acute on chronic hypoxic respiratory failure secondary to pneumonia and COPD Elevated troponin level. 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 Zosyn has been discontinued. Sputum cultures showed MRSA. ID and cardiology is following. We will continue the steroids and breathing treatments and follow up closely. Continue the home medications and further recommendations based on the clinical course. Prognosis is guarded. Time with Patient: Greater than 30
[2018-01-29] MEDS ORDERED: VANCOMYCIN TROUGH DUE 1 EACH MISC MISCELLANE ONE (05:00)
[2018-01-29 06:51] LABS: Glucose,Whole Blood 90 mg/dL (75-99)
[2018-01-29] MEDS: FORMOTEROL FUMARATE 20 MCG/2 ML NEBU INHALATION SCH ×2 (07:20→18:15)
[2018-01-29] MEDS: BUDESONIDE 0.5 MG/2 ML NEBU INHALATION SCH ×2 (07:20→18:15)
[2018-01-29] MEDS: IPRATROPIUM-ALBUTEROL 3 ML NEB INHALATION SCH ×4 (07:20→18:15)
[2018-01-29 08:13] LABS: Anisocytosis Moderate; Basophils % (A) 0 %; Eosinophils % (A) 0 %; HGB 7.3 gm/dL (11.4-16.0); Hypochromasia Marked; Lymphocytes # (A) 1.7 k/uL (1.0-4.8); Lymphocytes % (A) 15 %; MCH 27.4 pg (25.0-35.0); MCHC 29.2 g/dL (31.0-37.0); MCV 93.6 fL (80.0-100.0); Macrocytosis Slight; Mean Platelet Volume 6.5; Monocytes # (A) 0.3 k/uL (0-1.0); Monocytes % (A) 3 %; Neutrophils # (A) 9.3 k/uL (1.3-7.7); Neutrophils % (A) 81 %; Platelet Count 404 k/uL (150-450); RBC 2.67 m/uL (3.80-5.40); RDW 21.9 % (11.5-15.5); WBC 11.4 k/uL (3.8-10.6)
[2018-01-29 08:27] LABS: Calcium 7.8 mg/dL (8.4-10.2); Potassium 4.1 mmol/L (3.5-5.1)
[2018-01-29] MEDS: ALPRAZolam 0.25 MG TAB PO PRN ×2 (08:29→18:06)
[2018-01-29] MEDS: MELOXICAM 7.5 MG TAB PO SCH (08:29)
[2018-01-29] MEDS: FLUTICASONE 50MCG/SPRAY NASAL 16GM EA NOSTRIL SCH (08:29)
[2018-01-29] MEDS: NYSTATIN 100,000 UNIT/ML SUSP 500,000 UNIT/5 ML CUP PO SCH ×4 (08:29→20:56)
[2018-01-29] MEDS: HEPARIN SODIUM,PORCINE 5,000 UNIT/ML 1 ML VIAL SQ SCH ×3 (08:29→23:01)
[2018-01-29] MEDS: PSYLLIUM HUSK 100% 6 GM PACKET PO SCH ×2 (08:29→09:17)
[2018-01-29] MEDS: methylPREDNISolone SOD SUCCI 40 MG/ML 1 ML VIAL IV SCH ×2 (08:29→20:57)
[2018-01-29] MEDS: PANTOPRAZOLE 40 MG TABLET PO SCH (08:29)
[2018-01-29] MEDS: METOPROLOL TARTRATE 50 MG TAB PO SCH ×2 (08:29→20:57)
[2018-01-29] MEDS: LINEZOLID 600 MG TAB PO SCH ×2 (08:29→20:56)
[2018-01-29] MEDS: CHOLECALCIFEROL 1,000 UNIT TAB PO SCH (08:29)
[2018-01-29] MEDS: BENZOCAINE/MENTHOL LOZENG 1 EACH LOZENGE MUCOUS MEM PRN (08:30)
[2018-01-29] MEDS: INSULIN ASPART 100 UNIT/ML 1 ML 10 ML VIAL SQ SCH ×4 (09:17→20:41)
[2018-01-29 11:53] LABS: Glucose,Whole Blood 92 mg/dL (75-99)
[2018-01-29] MEDS: MULTIVITAMINS, THERA 1 EACH TAB PO SCH (12:22)
[2018-01-29] MEDS: carBAMazepine 100 MG TAB.ER.12H PO SCH ×2 (12:22→23:01)
--- NOTE | 2018-01-29 14:27 | P.PN ---
Subjective Progress Note Date: 01/29/18 Principal diagnosis: Infected lung bullous, right upper lobe thick-walled cavitary lesion, acute COPD exacerbation, mixed bacterial gram-negative pneumonia, acute on chronic hypoxic respiratory failure 01/29/2018, patient seen and evaluated examined during the rounds she is arousable and opens eyes follow simple commands still have intermittent episodes of shortness of breath his anti-her antibiotics are being adjusted as per culture results and reports, today's laboratory data reviewed medications reviewed as well hemoglobin is 7.3 which is overall stable white cell count slowly coming down is 11,400, medications reviewed laboratory data reviewed 01/28/2018, patient seen eval reexamined during the rounds clinically overall not much change is still get short of breath but severity has improved as cough and congestion her sputum is positive for MRSA and has been switched to Zyvox ID service is following this patient as well from respiratory standpoint remains on breathing treatment breathing exercises incentive spirometry will start tapering down the steroids, care plan discussed with the primary service 01/27/2018, patient seen eval reexamined during the rounds clinically doing well but still get short of breath cough and wheezing is still present patient being treated with broad-spectrum antibiotics breathing treatments steroids, labs reviewed medications reviewed him a sputum is positive for many colonies of staph patient remains on IV Zosyn and vancomycin 01/26/2018, patient seen eval reexamined during the rounds clinically still short of breath has cough but severity is slightly improved labs reviewed medications reviewed care plan discussed with the primary service Patient is well-known to me and she is an 82-year-old female who presented emergency department complaining of cough and shortness of breath. The patient was hospitalized about 2 weeks ago with COPD and pneumonia. She states she was discharged to a half-way and began to feel worse. She states she had fevers and chills. She is also complaining of fatigue. She states she has a cough which is nonproductive. She has a known history of COPD and does wear oxygen at baseline. She has a right upper lobe large cavitary lesion which was initially thin-walled and suggestive of infective malaise being monitored and observed for last several years patient is not a candidate for transbronchial lung biopsy or transthoracic lung biopsy due to high risk of lung collapse patient was recommended to be evaluated due to history [facility] in addition recently patient has been found to have significant pulmonary hypertension as well. The patient is also complaining of a sore throat and hoarse voice. Objective - Vital Signs Vital signs: Vital Signs Temp 97.3 F L 01/29/18 06:23 Pulse 92 01/29/18 11:08 Resp 16 01/29/18 06:23 BP 158/74 01/29/18 06:23 Pulse Ox 99 01/29/18 06:23 Intake & Output 01/28/18 01/29/18 01/29/18 18:59 06:59 18:59 Intake Total 400 Balance 400 Intake: Intake, IV Titration 400 Amount Sodium Chloride 0.9% 1, 400 000 ml @ 50 mls/hr IV . 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6) k/uL RBC 2.67 L (3.80-5.40) m/uL Hgb 7.3 L (11.4-16.0) gm/dL Hct 25.0 L (34.0-46.0) % MCHC 29.2 L (31.0-37.0) g/dL RDW 21.9 H (11.5-15.5) % Neutrophils # 9.3 H (1.3-7.7) k/uL Chloride (98-107) mmol/L Carbon Dioxide (22-30) mmol/L BUN (7-17) mg/dL POC Glucose (mg/dL) (75-99) mg/dL Calcium (8.4-10.2) mg/dL Microbiology - Last 24 Hours (Table) 01/25/18 00:00 Blood Culture - Preliminary Blood No Growth after 96 hours Assessment and Plan Assessment: Staphylococcus aureus pneumonia/MRSA pneumonia Right upper lobe cavitary lesion, likely infected bullous however occult new process neoplastic process cannot be excluded Acute on chronic hypoxic respiratory failure Acute exacerbation of COPD/emphysema Healthcare associated pneumonia cannot be excluded Right upper lobe cavitary lesion, likely infected bullous however occult new process neoplastic process cannot be excluded Anemia of chronic disease with very low hemoglobin count however remains stable though Non-ST segment elevated ID Pulmonary hypertension, 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
[2018-01-29 16:52] LABS: Glucose,Whole Blood 113 mg/dL (75-99)
[2018-01-29] MEDS: SODIUM CHLORIDE 0.9% 1,000 ML IV SCH (17:18)
[2018-01-29 20:43] LABS: Glucose,Whole Blood 123 mg/dL (75-99)
[2018-01-29] MEDS: MONTELUKAST 10 MG TAB PO SCH (20:56)
[2018-01-29] MEDS: FOLIC ACID 1 MG TAB PO SCH (20:56)
[2018-01-29] MEDS: ATORVASTATIN 40 MG TAB PO SCH (20:56)
[2018-01-29] MEDS: ASPIRIN 81 MG PO SCH (20:57)
--- NOTE | 2018-01-29 22:04 | P.PN ---
Subjective Progress Note Date: 01/29/18 Principal diagnosis: Shortness of breath 82-year-old female presents to Hospital with the significant worsening of her underlying shortness of breath cough or sputum production. Was recently hospitalized the readmitted with worsening shortness of breath. Was developed by Dr. Carter is being picked up on service. The patient relates that she feels slightly better today. But not significantly so. However certainly is not worse. She is denying difficulties such as fevers or chills but has shortness of breath cough and sputum production that is above her baseline. She has no hemoptysis. She is very weak. 01/28/2018 reveals the patient to still be weak. Feels slightly better than she did yesterday. She relates that she certainly is not worse. She does see not being worse as a positive. She is denying hemoptysis. Still very weak and eating poorly. patient feeling very poorly today. She's having significant anxiety and worsening shortness of breath. 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 If she has any further difficulties she may placed on BiPAP at 10/5 setting. Hopefully with multiple breathing treatments she'll continue to have some improvement in Xanax is also given. As noted she feels very poorly she however is not having hemoptysis or worsening sputum production. Objective - Vital Signs Vital signs: Vital Signs Temp 96.7 F L 01/29/18 15:19 Pulse 95 01/29/18 18:38 Resp 22 01/29/18 18:38 BP 150/73 01/29/18 15:19 Pulse Ox 97 01/29/18 15:19 Intake & Output 01/29/18 01/29/18 01/30/18 06:59 18:59 06:59 Intake Total 400 Balance 400 Intake: Intake, IV Titration 400 Amount Sodium Chloride 0.9% 1, 400 000 ml @ 50 mls/hr IV . Q20H [facility] Rx#:[id number] Other: Voiding Method Bedside Commode Bedside Commode Bedpan Bedpan # Voids 2 2 - Exam 82-year-old woman who is very anxious and dyspneic at rest HEENT: Anicteric conjunctiva are pink and moist nasal mucosa grossly intact without significant lesions, there is no thrush. Neck: The neck is supple without significant lymphadenopathy or thyromegaly. Lungs: There is symmetrical air entry with expiratory wheezes that are scattered she has few crackles in the bases but no distinct bronchial sounds no dullness or egophony is seen Heart: Irregular with an audible S1 and S2 no S3 soft S4 There is no significant murmur click or rub, PMI was nondisplaced. Abdomen: Positive bowel sounds soft and nontender without palpable masses or organomegaly. There was no guarding or rebound. Extremities: The upper extremities have excellent pulses they are symmetric, no significant petechiae or telangiectasia. No splinter hemorrhages were noted. The lower extremities are free from significant edema. The peripheral pulses were 2+ and symmetric. Neuro: Awake alert oriented to person place and time. There are no acute new gross focal sensory motor deficits. - Labs CBC & Chem 7: 01/29/18 07:55 01/29/18 07:55 Labs: Abnormal Lab Results - Last 24 Hours (Table) 01/29/18 01/29/18 01/29/18 Range/Units 07:55 07:55 16:50 WBC 11.4 H (3.8-10.6) k/uL RBC 2.67 L (3.80-5.40) m/uL Hgb 7.3 L (11.4-16.0) gm/dL Hct 25.0 L (34.0-46.0) % MCHC 29.2 L (31.0-37.0) g/dL RDW 21.9 H (11.5-15.5) % Neutrophils # 9.3 H (1.3-7.7) k/uL Chloride 113 H (98-107) mmol/L Carbon Dioxide 20 L (22-30) mmol/L BUN 25 H (7-17) mg/dL POC Glucose (mg/dL) 113 H (75-99) mg/dL Calcium 7.8 L (8.4-10.2) mg/dL 01/29/18 Range/Units 20:40 WBC (3.8-10.6) k/uL RBC (3.80-5.40) m/uL Hgb (11.4-16.0) gm/dL Hct (34.0-46.0) % MCHC (31.0-37.0) g/dL RDW (11.5-15.5) % Neutrophils # (1.3-7.7) k/uL Chloride (98-107) mmol/L Carbon Dioxide (22-30) mmol/L BUN (7-17) mg/dL POC Glucose (mg/dL) 123 H (75-99) mg/dL Calcium (8.4-10.2) mg/dL Microbiology - Last 24 Hours (Table) 01/25/18 00:00 Blood Culture - Preliminary Blood No Growth after 96 hours Laboratory Results WBC 11.4 k/uL (3.8-10.6) H 01/29/18 07:55 RBC 2.67 m/uL (3.80-5.40) L 01/29/18 07:55 Hgb 7.3 gm/dL (11.4-16.0) L 01/29/18 07:55 Hct 25.0 % (34.0-46.0) L 01/29/18 07:55 MCV 93.6 fL (80.0-100.0) 01/29/18 07:55 MCH 27.4 pg (25.0-35.0) 01/29/18 07:55 MCHC 29.2 g/dL (31.0-37.0) L 01/29/18 07:55 RDW 21.9 % (11.5-15.5) H 01/29/18 07:55 Plt Count 404 k/uL (150-450) 01/29/18 07:55 Neutrophils % 81 % 01/29/18 07:55 Lymphocytes % 15 % 01/29/18 07:55 Monocytes % 3 % 01/29/18 07:55 Eosinophils % 0 % 01/29/18 07:55 Basophils % 0 % 01/29/18 07:55 Neutrophils # 9.3 k/uL (1.3-7.7) H 01/29/18 07:55 Lymphocytes # 1.7 k/uL (1.0-4.8) 01/29/18 07:55 Monocytes # 0.3 k/uL (0-1.0) 01/29/18 07:55 Eosinophils # 0.0 k/uL (0-0.7) 01/29/18 07:55 Basophils # 0.0 k/uL (0-0.2) 01/29/18 07:55 Hypochromasia Marked 01/29/18 07:55 Anisocytosis Moderate 01/29/18 07:55 Macrocytosis Slight 01/29/18 07:55 PT 10.5 sec (9.0-12.0) 01/25/18 00:00 INR 1.1 (<1.2) 01/25/18 00:00 APTT 23.9 sec (22.0-30.0) 01/25/18 00:00 Sodium 144 mmol/L (137-145) 01/29/18 07:55 Potassium 4.1 mmol/L (3.5-5.1) 01/29/18 07:55 Chloride 113 mmol/L (98-107) H 01/29/18 07:55 Carbon Dioxide 20 mmol/L (22-30) L 01/29/18 07:55 Anion Gap 11 mmol/L 01/29/18 07:55 BUN 25 mg/dL (7-17) H 01/29/18 07:55 Creatinine 0.97 mg/dL (0.52-1.04) 01/29/18 07:55 Est GFR (CKD-EPI)AfAm 62 (>60 ml/min/1.73 sqM) 01/29/18 07:55 Est GFR (CKD-EPI)NonAf 54 (>60 ml/min/1.73 sqM) 01/29/18 07:55 Glucose 87 mg/dL (74-99) 01/29/18 07:55 POC Glucose (mg/dL) 123 mg/dL (75-99) H 01/29/18 20:40 POC Glu Derrick Boat Lever Operator ID Malina Sykes 01/29/18 20:[address] Glu mg/dL 123 01/25/18 00:06 Hemoglobin A1c 5.9 % (4.0-6.0) 01/25/18 00:06 Plasma Lactic Acid Fidencio 1.8 mmol/L (0.7-2.0) 01/25/18 00:00 Calcium 7.8 mg/dL (8.4-10.2) L 01/29/18 07:55 Magnesium 2.1 mg/dL (1.6-2.3) 01/25/18 00:00 Total Bilirubin 0.3 mg/dL (0.2-1.3) 01/25/18 00:00 AST 19 U/L (14-36) 01/25/18 00:00 ALT 20 U/L (9-52) 01/25/18 00:00 Alkaline Phosphatase 81 U/L (38-126) 01/25/18 00:00 Total Creatine Kinase 41 U/L (30-135) 01/25/18 18:09 CK-MB (CK-2) 4.4 ng/mL (0.0-2.4) H* 01/25/18 18:09 CK-MB (CK-2) Rel Index 10.7 01/25/18 18:09 Troponin I 0.415 ng/mL (0.000-0.034) H* 01/25/18 18:09 NT-Pro-B Natriuret Pep 5090 pg/mL 01/25/18 00:00 Total Protein 6.4 g/dL (6.3-8.2) 01/25/18 00:00 Albumin 3.2 g/dL (3.5-5.0) L 01/25/18 00:00 Influenza Type A RNA Not Detected (Not Detectd) 01/25/18 00:05 Influenza Type B (PCR) Not Detected (Not Detectd) 01/25/18 00:05 Microbiology 01/25/18 00:00 Blood Blood Culture - Preliminary No Growth after 96 hours 01/25/18 19:18 Sputum Gram Stain - Final 01/25/18 19:18 Sputum Sputum Culture - Final Methicillin resist S. aureus Assessment and Plan (1) Healthcare associated bacterial pneumonia Narrative/Plan: 82-year-old female with a history of bullous emphysema with significant cavitation there has been noticed for several years recently was having some worsening of her underlying lung disease. She now presents with severe shortness of breath cough and sputum production. There is pulmonary edema that she likely has a staphylococcal pneumonia. Consequently broad- spectrum antibiotic therapy is being utilized with Zosyn and vancomycin until we have further data. We'll try to tailor antibiotic therapy as soon as reasonable based on the culture. Likely require intravenous antibiotic therapy at the time of her transfer back to [facility] and will need IV access in the near future. Negative blood cultures so far. Leukocytosis is quite similar to recent. 01/28/2018 reveals the patient to still be weak and is not feeling well. However she is slightly better and that she does seem to be slightly less short of breath Is related that she will be discharged home not to rehab. With her MRSA pneumonia she would need ongoing treatment however IV antibiotic therapy would not be likely possible that her home setting and she will have no ability to leave her home. Consequently Zyvox will be attempted and will be started here today to make sure she can tolerate this. Would then plan a 2 week course of this in the home setting. 01/29/2018 patient having a significant bout of anxiety and shortness of breath. With multiple breathing treatments she seems to be having some improvement with the utilization of Xanax also. Plan is for a 2 week course of Zyvox 600 mg orally every 12 hours for the treatment of her MRSA pneumonia. She is doing very poorly and it's unclear if she wanted to go to the home setting permitted to go back to rehab. If she continues to do poorly I believe there could be further discussion about possible hospice therapy. Current Visit: Yes Status: Acute Code(s): J15.9 - UNSPECIFIED BACTERIAL PNEUMONIA SNOMED Code(s): 560730423 (2) Bullous emphysema Current Visit: No Status: Acute Code(s): J43.9 - EMPHYSEMA, UNSPECIFIED SNOMED Code(s): 851266184 (3) Weakness Current Visit: No Status: Acute Code(s): R53.1 - WEAKNESS SNOMED Code(s): 00486212
--- NOTE | 2018-01-30 01:02 | P.PN ---
Subjective Progress Note Date: 01/29/18 Principal diagnosis: Pneumonia/HCAP 82-year-old female patient with a past medical history significant for COPD/chronic respiratory failure on home oxygen presented to the hospital complaining of shortness of breath. Patient was febrile, tachycardic, tachypneic and leukocytosis on admission. Patient is currently being treated for pneumonia. 01/26/2018 Patient says that her breathing is better today. No complaints of chest pain. Patient has been afebrile today. Leukocytosis slightly improved. Otherwise patient is currently on vancomycin and Zosyn ID is following. Patient was seen by cardiology due to elevated troponin level. 2-D echocardiogram showed moderate to severe mitral regurgitation and severe tricuspid regurgitation. Cardiology recommended conservative management at this time. Otherwise patient is clinically slightly improved. No nausea vomiting or abdominal pain. No diarrhea. 01/27/2018 Patient's breathing status is improving slowly . Sputum cultures showed staph aureus MRSA. No fever no chills. Pulmonary is following. Otherwise no acute overnight issues. 01/28/2018 Patient did improve symptomatically. Almost back to baseline. Antibiotics changed to linezolid as per ID recommendations. No complaints of fever or chills. No acute overnight issues. Anticipate discharged to rehab. 01/29/2018 Patient says that her breathing is slightly worsened today. Otherwise patient is being continued on IV Solu-Medrol and breathing treatments and antibiotics in the form of linezolid. No fever no chills. Head of the bed elevated to 30 to prevent aspiration. Otherwise no acute overnight issues. All other review of systems negative except the above Active Medications Active Medications Generic Name Dose Route Start Last Admin Trade Name Freq PRN Reason Stop Dose Admin Acetaminophen 650 mg 01/25/18 19:17 Tylenol Tab PO Q4H PRN Mild Pain Albuterol/Ipratropium 3 ml 01/25/18 00:40 Duoneb 0.5 Mg-3 Mg/3 Ml Soln INHALATION RT-Q4H PRN Shortness Of Breath Or Wheezing Albuterol/Ipratropium 3 ml 01/25/18 08:00 01/29/18 18:15 Duoneb 0.5 Mg-3 Mg/3 Ml Soln INHALATION 3 ml RT-QID [facility]ANG Administration Alprazolam 0.25 mg 01/25/18 22:02 01/29/18 18:06 Xanax PO 0.25 mg TID PRN Administration Anxiety Aspirin 81 mg 01/25/18 21:00 01/29/18 20:57 Aspirin PO 81 mg HS LIANG Administration Atorvastatin Calcium 40 mg 01/25/18 21:00 01/29/18 20:56 Lipitor PO 40 mg HS [facility]ANG Administration Benzocaine/Menthol 1 each 01/25/18 03:00 01/29/18 08:30 Cepacol Lozenge MUCOUS MEM 1 each Q4HR PRN Administration Sore Throat Budesonide 0.5 mg 01/25/18 20:00 01/29/18 18:15 Pulmicort INHALATION 0.5 mg RT-BID [facility] Administration Carbamazepine 100 mg 01/25/18 00:45 01/29/18 23:01 Tegretol Xr PO 100 mg Q12H [facility] Administration Cholecalciferol 1,000 unit 01/26/18 09:00 01/29/18 08:29 Vitamin D3 PO 1,000 unit DAILY [facility] Administration Fluticasone Propionate 2 spray 01/25/18 09:00 01/29/18 08:29 Flonase Nasal Mystic EA NOSTRIL 2 spray DAILY [facility] Administration Folic Acid 1 mg 01/25/18 21:00 01/29/18 20:56 Folic Acid PO 1 mg HS [facility] Administration Formoterol Fumarate 20 mcg 01/25/18 20:00 01/29/18 18:15 Perforomist INHALATION 20 mcg RT-BID [facility] Administration Heparin Sodium (Porcine) 5,000 unit 01/25/18 16:00 01/29/18 23:01 Heparin SQ 5,000 unit Q8HR [facility] Administration Sodium Chloride 1,000 mls @ 50 mls/hr 01/25/18 12:15 01/29/18 17:18 Saline 0.9% IV Not Given .Q20H [facility] Insulin Aspart 0 unit 01/25/18 07:30 01/29/18 20:41 Novolog SQ Not Given ACHS [facility] Protocol Linezolid 600 mg 01/28/18 11:30 01/29/18 20:56 Zyvox PO 600 mg Q12HR [facility] Administration Meloxicam 15 mg 01/26/18 09:00 01/29/18 08:29 Mobic PO 15 mg DAILY [facility] Administration Methotrexate 20 mg 01/31/18 09:00 Methotrexate PO FR [facility] Methylprednisolone Sodium Succinate 40 mg 01/28/18 21:00 01/29/18 20:57 Solu-Medrol IV 40 mg Q12HR [facility] Administration Metoprolol Tartrate 50 mg 01/26/18 21:00 01/29/18 20:57 Lopressor PO 50 mg BID [facility] Administration Montelukast Sodium 10 mg 01/25/18 21:00 01/29/18 20:56 Singulair PO 10 mg HS [facility] Administration Multivitamins 1 each 01/26/18 12:00 01/29/18 12:22 Theragran PO Not Given DAILY@1200 [facility] Nystatin 500,000 unit 01/25/18 18:00 01/29/18 20:56 Mycostatin Oral Susp PO 500,000 unit QID [facility] Administration Pantoprazole Sodium 40 mg 01/26/18 07:30 01/29/18 08:29 Protonix PO 40 mg AC-[id number] [facility] Administration Psyllium Hydrophilic Mucilloid 6 gm 01/26/18 09:00 01/29/18 09:17 Metamucil PO Not Given DAILY [facility] Sodium Chloride 1 spray 01/25/18 19:17 [place] INTRANASAL Q4H PRN [facility]Y [facility]ARES Objective - Vital Signs Vital signs: Vital Signs Temp 96.7 F L 01/29/18 15:19 Pulse 95 01/29/18 18:38 Resp 22 01/29/18 18:38 BP 150/73 01/29/18 15:19 Pulse Ox 97 01/29/18 15:19 Intake & Output 01/29/18 01/29/18 01/30/18 06:59 18:59 06:59 Intake Total 400 Balance 400 Intake: Intake, IV Titration 400 Amount Sodium Chloride 0.9% 1, 400 000 ml @ 50 mls/hr IV . Q20H [facility] Rx#:[id number] Other: Voiding Method Bedside Commode Bedside Commode Bedpan Bedpan # Voids 2 2 - Exam PHYSICAL EXAMINATION: Patient is lying in the bed comfortably, no acute distress, awake alert and oriented.. HEENT: Normocephalic. Neck is supple. Pupils reactive. Nostrils clear. Oral cavity is moist. Ears reveal no drainage. Neck reveals no JVD, carotid bruits, or thyromegaly. CHEST EXAMINATION: Trachea is central. Symmetrical expansion. Bilateral air entry improved and prolonged expiration with wheezing CARDIAC: Normal S1, S2 with no gallops. No murmurs ABDOMEN: Soft. Bowel sounds normal. No organomegaly. No abdominal bruits. Extremities: reveal no edema. No clubbing or cyanosis Neurologically awake, alert, oriented x3 with well-coordinated movements. No focal deficits noted Skin: No rash or skin lesions. Psychiatric: Cooperative. Nonsuicidal Musculoskeletal: No joint swelling or deformity. Normal range of motion. - Labs CBC & Chem 7: 01/29/18 07:55 01/29/18 07:55 Labs: Abnormal Lab Results - Last 24 Hours (Table) 01/29/18 01/29/18 01/29/18 Range/Units 07:55 07:55 16:50 WBC 11.4 H (3.8-10.6) k/uL RBC 2.67 L (3.80-5.40) m/uL Hgb 7.3 L (11.4-16.0) gm/dL Hct 25.0 L (34.0-46.0) % MCHC 29.2 L (31.0-37.0) g/dL RDW 21.9 H (11.5-15.5) % Neutrophils # 9.3 H (1.3-7.7) k/uL Chloride 113 H (98-107) mmol/L Carbon Dioxide 20 L (22-30) mmol/L BUN 25 H (7-17) mg/dL POC Glucose (mg/dL) 113 H (75-99) mg/dL Calcium 7.8 L (8.4-10.2) mg/dL 01/29/18 Range/Units 20:40 WBC (3.8-10.6) k/uL RBC (3.80-5.40) m/uL Hgb (11.4-16.0) gm/dL Hct (34.0-46.0) % MCHC (31.0-37.0) g/dL RDW (11.5-15.5) % Neutrophils # (1.3-7.7) k/uL Chloride (98-107) mmol/L Carbon Dioxide (22-30) mmol/L BUN (7-17) mg/dL POC Glucose (mg/dL) 123 H (75-99) mg/dL Calcium (8.4-10.2) mg/dL Microbiology - Last 24 Hours (Table) 03/31/18 00:00 Blood Culture - Preliminary Blood No Growth after 96 hours Assessment and Plan Assessment: Acute COPD exacerbation and right upper lobe pneumonia/healthcare associated pneumonia. Sputum cultures showing MRSA Sepsis secondary to pneumonia Bullous lesions multiple Acute on chronic hypoxic respiratory failure secondary to pneumonia and COPD Elevated troponin level. Likely due to infection Moderate to severe mitral regurgitation and severe tricuspid regurgitation Acute kidney injury with CK D stage II Hyperkalemia due to acute kidney injury Hypertension Hyperlipidemia Acute on chronic anemia due to infection/inflammation History of rheumatoid arthritis GERD Remote history of nicotine dependence Anxiety CODE STATUS is DO NOT RESUSCITATE/DO NOT INTUBATE Plan: Patient was continued on vancomycin , changed to linezolid.. Zosyn has been discontinued. Sputum cultures showed MRSA. ID and cardiology is following. We will continue the steroids and breathing treatments and follow up closely. Continue the home medications and further recommendations based on the clinical course. Possible transfer to extended care facility. Prognosis is guarded. Time with Patient: Greater than 30
[2018-01-30] MEDS: ALPRAZolam 0.25 MG TAB PO PRN (04:04)
[2018-01-30 06:33] VITALS: BP 156/74; RESP 30; TEMP 99.2
[2018-01-30] MEDS: BUDESONIDE 0.5 MG/2 ML NEBU INHALATION SCH (07:00)
[2018-01-30] MEDS: FORMOTEROL FUMARATE 20 MCG/2 ML NEBU INHALATION SCH (07:00)
[2018-01-30] MEDS: IPRATROPIUM-ALBUTEROL 3 ML NEB INHALATION SCH ×2 (07:00→11:26)
[2018-01-30 07:09] LABS: Glucose,Whole Blood 140 mg/dL (75-99)
[2018-01-30 07:57] LABS: Anisocytosis Moderate; Basophils % (A) 0 %; Eosinophils % (A) 0 %; HGB 7.5 gm/dL (11.4-16.0); Hypochromasia Marked; Lymphocytes # (A) 1.7 k/uL (1.0-4.8); Lymphocytes % (A) 9 %; MCH 27.6 pg (25.0-35.0); MCV 92.2 fL (80.0-100.0); Macrocytosis Slight; Monocytes # (A) 0.5 k/uL (0-1.0); Monocytes % (A) 3 %; Neutrophils # (A) 17.9 k/uL (1.3-7.7); Neutrophils % (A) 88 %; Platelet Count 348 k/uL (150-450); RBC 2.71 m/uL (3.80-5.40); RDW 23.1 % (11.5-15.5); WBC 20.3 k/uL (3.8-10.6)
[2018-01-30 08:09] LABS: Calcium 8.8 mg/dL (8.4-10.2); Potassium 4.5 mmol/L (3.5-5.1)
[2018-01-30] MEDS: methylPREDNISolone SOD SUCCI 40 MG/ML 1 ML VIAL IV SCH (08:41)
[2018-01-30] MEDS: METOPROLOL TARTRATE 50 MG TAB PO SCH (08:41)
[2018-01-30] MEDS: MELOXICAM 7.5 MG TAB PO SCH (08:41)
[2018-01-30] MEDS: LINEZOLID 600 MG TAB PO SCH (08:41)
[2018-01-30] MEDS: HEPARIN SODIUM,PORCINE 5,000 UNIT/ML 1 ML VIAL SQ SCH (08:42)
[2018-01-30] MEDS: INSULIN ASPART 100 UNIT/ML 1 ML 10 ML VIAL SQ SCH (08:42)
[2018-01-30] MEDS: NYSTATIN 100,000 UNIT/ML SUSP 500,000 UNIT/5 ML CUP PO SCH (08:42)
[2018-01-30] MEDS: PANTOPRAZOLE 40 MG TABLET PO SCH (08:42)
[2018-01-30] MEDS: FLUTICASONE 50MCG/SPRAY NASAL 16GM EA NOSTRIL SCH (08:42)
[2018-01-30] MEDS: CHOLECALCIFEROL 1,000 UNIT TAB PO SCH (08:42)
--- NOTE | 2018-01-30 09:53 | XR ---
EXAMINATION TYPE: XR chest 2V DATE OF EXAM: 01/30/2018 COMPARISON: 01/25/[address] 01/13/2018. HISTORY: 82 year-old female shortness of breath TECHNIQUE: Frontal and lateral views FINDINGS: Heart upper limits of normal in size. Leftward patient rotation AND normal cardiomediastinal contours . Atherosclerotic arch calcifications. Hyperinflation suggests underlying emphysema. Asymmetric focal densities are redemonstrated throughout the right lung particularly at the apex and both lung bases. Patchy posterior basilar density is increased from prior. IMPRESSION: 1. Similar focal right apical opacity characterized by thick walled cavitation. Correlate with prior workup as to etiology. 2. Patchy bibasilar areas of density are minimally increased especially on the lateral view suggestin g underlying fibrosis. Subtle increasing infiltrate difficult to exclude. 3. Advanced emphysema.
[2018-01-30] MEDS: PSYLLIUM HUSK 100% 6 GM PACKET PO SCH (11:11)
[2018-01-30 11:53] VITALS: PULSE 84
--- NOTE | 2018-01-31 01:39 | P.DS ---
Providers Date of admission: 01/25/18 00:46 Expected date of discharge: 01/30/18 Attending physician: Carson Maher Consults: 01/25/18 00:40 Consult Physician Routine Consulting Provider: Darin Velázquez Consult Reason/Comments: COPD, HCAP Do you want consulting provider notified?: Yes, Notify in am 01/25/18 07:36 Consult Physician Routine Consulting Provider: Paul Carrillo Consult Reason/Comments: increased troponin Do you want consulting provider notified?: Yes, Notify in am 01/25/18 10:18 Consult Physician Routine Consulting Provider: Rober Gilmore Consult Reason/Comments: known to you, sepsis, pna Do you want consulting provider notified?: Yes [facility]: diagnosis Acute COPD exacerbation and right upper lobe pneumonia/healthcare associated pneumonia. Sputum cultures showing MRSA Sepsis secondary to pneumonia MRSA pneumonia Bullous lesions multiple Acute on chronic hypoxic respiratory failure secondary to pneumonia and COPD Elevated troponin level. Likely due to infection Moderate to severe mitral regurgitation and severe tricuspid regurgitation Acute kidney injury with CK D stage II Hyperkalemia due to acute kidney injury Hypertension Hyperlipidemia Acute on chronic anemia due to infection/inflammation History of rheumatoid arthritis GERD Remote history of nicotine dependence Anxiety CODE STATUS is DO NOT RESUSCITATE/DO NOT INTUBATE Hospital course 82-year-old female patient with a past medical history significant for COPD/chronic respiratory failure on home oxygen presented to the hospital complaining of shortness of breath. Patient was febrile, tachycardic, tachypneic and leukocytosis on admission. Patient is currently being treated for pneumonia. 01/26/2018 Patient says that her breathing is better today. No complaints of chest pain. Patient has been afebrile today. Leukocytosis slightly improved. Otherwise patient is currently on vancomycin and Zosyn ID is following. Patient was seen by cardiology due to elevated troponin level. 2-D echocardiogram showed moderate to severe mitral regurgitation and severe tricuspid regurgitation. Cardiology recommended conservative management at this time. Otherwise patient is clinically slightly improved. No nausea vomiting or abdominal pain. No diarrhea. 01/27/2018 Patient's breathing status is improving slowly . Sputum cultures showed staph aureus MRSA. No fever no chills. Pulmonary is following. Otherwise no acute overnight issues. 01/28/2018 Patient did improve symptomatically. Almost back to baseline. Antibiotics changed to linezolid as per ID recommendations. No complaints of fever or chills. No acute overnight issues. Anticipate discharged to rehab. 01/29/2018 Patient says that her breathing is slightly worsened today. Otherwise patient is being continued on IV Solu-Medrol and breathing treatments and antibiotics in the form of linezolid. No fever no chills. Head of the bed elevated to 30 to prevent aspiration. Otherwise no acute overnight issues. 01/30/2018 Patient's breathing status has been improving slowly. Patient was still wheezing. Patient received breathing treatments. Otherwise patient refused to take BiPAP machine mask this morning.. Patient was found unconscious and not responding. Pronounced at 11:50 AM. Family has been notified. Patient Condition at Discharge: Serious Plan - Discharge Summary Discharge Rx Participant: No New Discharge Prescriptions: New Linezolid [Zyvox] 600 mg PO Q12H #28 tab No Action Meloxicam 15 mg PO DAILY Methotrexate Sodium [Methotrexate] 20 mg PO FR Metoprolol Tartrate [Lopressor] 25 mg PO BID Alendronate Sodium 70 mg PO Q7D Pravastatin Sodium [Pravachol] 40 mg PO HS Fluticasone Nasal [place] [Flonase Nasal [place]] 2 spr EA NOSTRIL DAILY carBAMazepine [TEGretol XR] 100 mg PO Q12H Multivitamins, Thera [Multivitamin (formulary)] 1 tab PO DAILY Cholecalciferol [Vitamin D3] 1,000 unit PO DAILY Folic Acid 1 mg PO HS Budesonide [Pulmicort] 0.5 mg INHALATION RT-Q8H Ipratropium-Albuterol Nebulize [Duoneb 0.5 mg-3 mg/3 ml Soln] 3 ml INHALATION RT-Q4H PRN ampul.neb PRN Reason: shortness of breath Acetaminophen Tab [Tylenol Tab] 650 mg PO Q4H PRN PRN Reason: Pain Nystatin 100,000 Unit/ml Susp [Mycostatin Oral Susp] 5 ml PO Q6H Ipratropium-Albuterol Nebulize [Duoneb 0.5 mg-3 mg/3 ml Soln] 3 ml INHALATION RT-Q6H INSULIN LISPRO (HumaLOG) [humaLOG] See Protocol SQ ACHS Phenol [Chloraseptic] 1 spray MUCOUS MEM Q8H PRN PRN Reason: Sore Throat predniSONE See Taper PO DAILY Omeprazole 20 mg PO DAILY Psyllium Husk 100% [Metamucil Packet] 6 gm PO DAILY Levofloxacin [Levaquin] 500 mg PO DAILY Sodium Chloride [Saline Nasal [place]] 1 spray EA NOSTRIL Q4H PRN PRN Reason: DRY NARES Discharge Medication List Alendronate Sodium 70 mg PO Q7D 06/27/16 [History] Meloxicam 15 mg PO DAILY 06/27/16 [History] Methotrexate Sodium [Methotrexate] 20 mg PO FR 06/27/16 [History] Metoprolol Tartrate [Lopressor] 25 mg PO BID 06/27/16 [History] Pravastatin Sodium [Pravachol] 40 mg PO HS 06/27/16 [History] Budesonide [Pulmicort] 0.5 mg INHALATION RT-Q8H 01/11/18 [History] Cholecalciferol [Vitamin D3] 1,000 unit PO DAILY 01/11/18 [History] Fluticasone Nasal [place] [Flonase Nasal [place]] 2 spr EA NOSTRIL DAILY 01/11/18 [ History] Folic Acid 1 mg PO HS 01/11/18 [History] Multivitamins, Thera [Multivitamin (formulary)] 1 tab PO DAILY 01/11/18 [History ] carBAMazepine [TEGretol XR] 100 mg PO Q12H 01/11/18 [History] Ipratropium-Albuterol Nebulize [Duoneb 0.5 mg-3 mg/3 ml Soln] 3 ml INHALATION RT -Q4H PRN ampul.neb 01/16/18 [Rx] Acetaminophen Tab [Tylenol Tab] 650 mg PO Q4H PRN 01/25/18 [History] INSULIN LISPRO (HumaLOG) [humaLOG] See Protocol SQ ACHS 01/25/18 [History] Ipratropium-Albuterol Nebulize [Duoneb 0.5 mg-3 mg/3 ml Soln] 3 ml INHALATION RT -Q6H 01/25/18 [History] Levofloxacin [Levaquin] 500 mg PO DAILY 01/25/18 [History] Nystatin 100,000 Unit/ml Susp [Mycostatin Oral Susp] 5 ml PO Q6H 01/25/18 [ History] Omeprazole 20 mg PO DAILY 01/25/18 [History] Phenol [Chloraseptic] 1 spray MUCOUS MEM Q8H PRN 01/25/18 [History] Psyllium Husk 100% [Metamucil Packet] 6 gm PO DAILY 01/25/18 [History] Sodium Chloride [Saline Nasal [place]] 1 spray EA NOSTRIL Q4H PRN 01/25/18 [ History] predniSONE See Taper PO DAILY 01/25/18 [History] Linezolid [Zyvox] 600 mg PO Q12H #28 tab 01/28/18 [Rx] Follow up Appointment(s)/Referral(s): [facility], [REFERRING] - Agustin Sheffield DO [Primary Care Provider] - 1-2 days Discharge Disposition: - Preliminary Cause of Preliminary Cause of : Sepsis secondary to MRSA pneumonia and COPD exacerbation
[2018-01-31] MEDS ORDERED: METHOTREXATE SODIUM 2.5 MG TAB PO SCH (09:00)
--- NOTE | 2018-02-02 14:48 | CDI ---
Last Revision, September 2017 Documentation Clarification Form Date: 02/02/18 From: Cheyenne Carlos Florence Dae, Identification Clerk between 8:30 am & 5 pm Silvia Admit Date: 01/25/2018 12:46:00 AM Patient Name: Karen Jordan Visit Number: [id number] Discharge Date: 01/30/18 ATTENTION: The Clinical Documentation Specialists (CDI) and [facility] Coding Staff appreciate your assistance in clarifying documentation. Please respond to the clarification below the line at the bottom and electronically sign. The CDI & [facility] Coding staff will review the response and follow-up if needed. Please note: Queries are made part of the Legal Health Record. If you have any questions, please contact the author of this message via ITS. Dr. Reddy Mora Elevated troponin level likely due to infection per discharge summary. Elevated troponin secondary to demand mismatch is documented in the ED record, and / PN by BASILIO Hernandez. Non-ST segment elevated NJ documented in consult by Dr Smitha Mcmillan, in PNs 01/26, 01/27, 01/28 & 01/[address] George Webster. Troponin I - 0.047, 0.463, 0.532 & 0.415. EKG: Nonspecific ST and T wave abnormality. In order to capture the severity of condition and necessary documentation specificity, please clarify if the elevated troponins were: Type 2 NJ NSTEMI myocardial infarction Other, please specify Unable to determine Please continue to document in your progress notes and discharge summary in order to capture severity of illness and risk of mortality. Include clinical findings that support your diagnosis. Type 2 NJ MTDD
== END 2018-01-30 11:50 | disposition expired | DRG 871 ==
LOC: EC 23:52 → 6SEL 01-25 00:46 → 4MS4W 01-27 20:07
PROVIDERS: ADMIT Hospitalist; ATTEND Hospitalist
DX: A41.02 Sepsis due to Methicillin resistant Staphylococcus aureus (principal); J15.212 Pneumonia due to Methicillin resistant Staphylococcus aureus; J96.21 Acute and chronic respiratory failure with hypoxia; I21.A1 Myocardial infarction type 2; J81.1 Chronic pulmonary edema; J84.9 Interstitial pulmonary disease, unspecified; N18.4 Chronic kidney disease, stage 4 (severe); B37.0 Candidal stomatitis; J98.11 Atelectasis; N17.9 Acute kidney failure, unspecified; E87.5 Hyperkalemia; I27.20 Pulmonary hypertension, unspecified; I08.1 Rheumatic disorders of both mitral and tricuspid valves; Z66 Do not resuscitate; J84.10 Pulmonary fibrosis, unspecified; J43.9 Emphysema, unspecified; Z99.81 Dependence on supplemental oxygen; D63.8 Anemia in other chronic diseases classified elsewhere; K64.9 Unspecified hemorrhoids; M06.9 Rheumatoid arthritis, unspecified; I12.9 Hypertensive chronic kidney disease with stage 1 through stage 4 chronic kidney disease, or unspecified chronic kidney disease; K21.9 Gastro-esophageal reflux disease without esophagitis; E78.5 Hyperlipidemia, unspecified; M19.91 Primary osteoarthritis, unspecified site; M81.0 Age-related osteoporosis without current pathological fracture; F41.9 Anxiety disorder, unspecified; L40.9 Psoriasis, unspecified; Y95 Nosocomial condition; Z79.1 Long term (current) use of non-steroidal anti-inflammatories (NSAID); Z79.4 Long term (current) use of insulin; Z79.51 Long term (current) use of inhaled steroids; Z79.52 Long term (current) use of systemic steroids; Z79.82 Long term (current) use of aspirin; Z79.83 Long term (current) use of bisphosphonates; Z79.899 Other long term (current) drug therapy; Z87.440 Personal history of urinary (tract) infections; Z87.891 Personal history of nicotine dependence; Z87.01 Personal history of pneumonia (recurrent); Z98.42 Cataract extraction status, left eye; Z98.41 Cataract extraction status, right eye; Z98.51 Tubal ligation status
CPT/HCPCS: 36415; 71046; 80048; 80053; 82550; 82553; 83036; 83605; 83735; 83880; 84484; 85025; 85610; 85730; 87040; 87070; 87077; 87186; 87205; 87502; 93005; 93306; 94640; 94760; 96361; 96374; 99291